=== PATIENT | male | born 1965 | race Caucasian/White ===

== ENCOUNTER 2017-03-20 11:01 | Inpatient (IN) | payer OTHER, MEDICARE ==
[~2017-03-20] VITALS: Ht 172.7 cm; Wt 54.4 kg
--- NOTE | 2017-03-20 11:13 | NUR ---
TRIAGE; PT TO ED C/O SOB X A FEW WEEKS. C/O HEAD AND CHEST CONGESTION. DENIES ANY CP.
--- NOTE | 2017-03-20 11:30 | ED INFLUENZA/URI COMPLAINT ---
History of Present Illness General Chief Complaint: Upper Respiratory Sx/Fever Stated Complaint: SOB, CHEST CONGESTION,SINUS CONGESTION, FEVER Source: patient, old records Exam Limitations: no limitations Vital Signs & Intake/Output Vital Signs & Intake/Output Vital Signs Date Time Temp Pulse Resp B/P B/P Pulse O2 O2 Flow FiO2 Mean Ox Delivery Rate 03/21 1659 98.0 92 16 90/56 92 03/21 0945 90/54 03/21 0830 97.4 90 18 /54 93 Room Air 03/21 0820 95 Room Air 03/21 0800 Room Air 03/20 2200 97.8 97 20 90/58 92 Room Air 03/20 2135 97 90/58 03/20 2046 Room Air ED Intake and Output 03/21 0000 03/20 1200 Intake Total 100 Output Total Balance 100 Intake, Oral 100 Patient 120 lb Weight Allergies Coded Allergies: NO KNOWN ALLERGIES (06/06/13) Reconcile Medications Albuterol Sulfate (Proair Hfa) 90 MCG HFA.AER.AD 2 PUF INH Q4-6 PRN PRN SHORTNESS OF BREATH (Reported) Albuterol Sulfate 2.5 MG/3 ML (0.083 %) VIAL.NEB 1 Vial INH/VIOLETTE Q4P PRN SHORTNESS OF BREATH (Reported) Bupropion HCl (Bupropion HCl Sr) 200 MG TABLET.ER 1 TAB PO BID MENTAL HEALTH (Reported) Carvedilol 6.25 MG TABLET 1 TAB PO BID HEART (Reported) Fluticasone/Salmeterol (Advair 500-50 Diskus) 500 MCG-50 MCG/DOSE BLST.W.DEV 1 PUF INH BID BREATHING PROBLEMS (Reported) Sacubitril/Valsartan (Entresto 97 MG-103 MG Tablet) 97 MG-103 MG TABLET 1 TAB PO BID HEART (Reported) Sertraline HCl 50 MG TABLET 1 TAB PO DAILY MENTAL HEALTH (Reported) Triage Note: TRIAGE; PT TO ED C/O SOB X A FEW WEEKS. C/O HEAD AND CHEST CONGESTION. DENIES ANY CP. Triage Nurses Notes Reviewed? yes Onset: Gradual Duration: week(s): (4), constant Timing: recent history Severity: moderate Severity Numbers: 8 Prior Episodes/Possible Cause: occassional episodes Modifying Factors: Worsens With: movement. Associated Symptoms: wheezing HPI: 51-year-old male with history of cardiomyopathy hypertension chronic bronchitis presents to the ER for evaluation complaining of progressively worsening shortness of breath for the past few weeks has been worse now with rest. He is been using his nebulizer treatments without improvement. He is a 1-2 cigarette smoker day down from 2 packs. He denies chest pain back pain fever chills cough. Patient states that he had routine blood work performed about a month ago prior to the symptoms beginning and was told his white blood cell count was elevated however he did not seek care for those values. The patient denies recent weight loss black or bloody stools nausea or vomiting. On arrival he is noted to be hypotensive however the patient states his normal blood pressure per the patient systolically is in the 80s to 90s. (KIMBERLY EATON) Past History Travel History Traveled to [place] past 21 day No Medical History Any Pertinent Medical History? see below for history Cardiovascular: cardiomyopathy, CHF, defibrillator Respiratory: bronchitis, COPD Surgical History Surgical History: non-contributory Psychosocial History What is your primary language Chinese Tobacco Use: Current Daily Use Daily Tobacco Use Amount/Type: => 5 Cigarettes daily Family History Hx Contributory? No (KIMBERLY EATON) Review of Systems Review of Systems Constitutional: Reports: see HPI. All Other Systems: Reviewed and Negative Comments Review of systems: See HPI, All other systems negative. Constitutional, no chills no fever, no malaise HEENT: no sore throat no congestion Cardiovascular: No chest pain , no palpitation Skin: no rashes, no change in skin Respiratory:dyspnea no cough no sputum GI: No nausea no vomiting, no diarrhea, : No dysuria Muscle skeletal: No joint pain, no joint swelling, no back pain, no neck pain, Neurologic: No numbness no confusion, no headache Psych: No stress Heme/endocrine: No bruising Immunology: No lymphadenopathy (KIMBERLY EATON) Physical Exam Physical Exam General Appearance: well developed/nourished, no apparent distress, alert Ears, Nose, Throat: normal ENT inspection Respiratory: wheezing Comments: Well-developed well-nourished person in no acute distress HEENT: Normal EENT exam; PERRL, EOMI, HEAD is atraumatic. moist mucous membranes. Neck: Supple, no lymphadenopathy, normal range of motion Back: Nontender, no CVA tenderness. Full range of motion Cardiovascular: Regular rate and rhythms no murmurs rubs or gallops, normal JVP Respiratory: Chest nontender.There were no bony deformities, no asymmetry. No respiratory distress. Patient speaking in 3/sentences wheezing bilaterally no rhonchi no rales Abdomen: Soft, nontender nondistended, no appreciable organomegaly. Normal bowel sounds. No rebound/guarding, No appreciable enlargement of the abdominal aorta, No ascites. Extremity: No edema, full range of motion of extremities, normal and equal pulses bilaterally, 5 out of 5 strength noted to bilateral upper and lower extremities Neuro: Alert oriented x3, motor sensory normal, There were no obvious focal neurologic abnormalities. Skin: No appreciable rash on exposed skin, skin is warm and dry. Psych: Mood and affect is normal, memory and judgment is normal. Core Measures Severe Sepsis Present: No Septic Shock Present: No (KIMBERLY EATON) Progress Differential Diagnosis: copd EXACERBATION AND BRONCHITIS PNEUMONIA chfMALIGNANCY Plan of Care: Orders Procedure Date/time Status Nothing by Mouth 03/22 B Active CULTURE,BODY FLUID 03/22 06 Active PROTHROMBIN TIME 03/22 06 Active HIGH SENSITIVITY CRP 03/22 0600 Active WESTERGREN SED RATE 03/22 0600 Active CYTOLOGY SPECIMEN 03/22 0600 Active CBC WITHOUT DIFFERENTIAL 03/22 0600 Active BASIC ELECTROLYTES PLUS BUN&CR 03/[address] LUNG BIOPSY 03/[address] ABD & PELVIS W/O IV CONTRAS 03/22 0600 Active Lab Add-on Test 03/22 UNK Active CYTOLOGY SPECIMEN 03/21 1238 Active SPUTUM INDUCTION (GEN) 03/21 UNK Active Lab Add-on Test 03/21 UNK Active RT: Evaluation 03/20 2043 Active STREP PNEUMO URINARY ANTIGEN 03/20 1617 Complete LEGIONELLA URINARY ANTIGEN 03/20 1617 Complete INCENTIVE SPIROMETRY TRX CHG 03/20 UNK Complete AEROSOL CHG 03/20 UNK Complete THERAPIST ORDERS 03/20 UNK Complete Lab Add-on Test 03/20 UNK Active Current Medications Sig/Yuli Start time Last Medication Dose Stop Time Status Admin Guaifenesin 600 MG Q12 03/21 1520 AC 03/21 (Mucinex) 1714 Albuterol Sulfate 3 ML TID 03/20 2200 AC 03/21 (Proventil) 1910 Budesonide/ 2 PUF BID 03/20 220 AC 03/21 Formoterol Fumarate 0945 (Symbicort) Bupropion HCl 200 MG BID 03/20 2200 AC 03/21 (Wellbutrin) 0945 Carvedilol 6.25 MG BID 03/20 2200 AC 03/21 (Coreg) 0945 Ipratropium Goodell 2.5 ML TID 03/20 2200 AC 03/21 (Atrovent) 1910 Azithromycin 500 MG 18303/20 1830 AC 03/21 (Zithromax) 1714 Sodium Chloride 250 ML (Normal Saline 0.9%) Ceftriaxone Sodium 2,000 MG 1800 03/20 1800 AC 03/21 (Rocephin) 1714 Sertraline HCl 50 MG DAILY 03/20 1459 AC 03/21 (Zoloft) 0945 Heparin Sodium 5,000 UNIT Q8 03/20 1456 AC 03/21 (Porcine) 03/22 0000 1356 Laboratory Tests 03/21/17 0819: Urinalysis MOD H, Urine Color YEL, Urine Clarity CLEAR, Urine pH 6.0, Ur Specific Beryl 1.025, Urine Protein TRACE H, Urine Ketones NEG, Urine Nitrite NEG, Urine Bilirubin NEG, Urine Urobilinogen 0.2, Ur Leukocyte Esterase NEG, Ur Microscopic SEDIMENT EXAMINED, Urine RBC 15-25 H, Urine WBC 1-3 H, Ur Epithelial Cells FEW, Urine Bacteria FEW H, Hyaline Casts RARE H, Granular Casts RARE H, Urine Mucus MOD H, Micro UA Comment MORE INFO: H, Urine Hemoglobin MOD H, Urine Glucose NEG 03/21/17 0610: Anion Gap 17 H, Estimated GFR > 60, BUN/Creatinine Ratio 40.0 H, CBC w Diff MAN DIFF ORDERED, RBC 3.57 L, MCV 89.2, MCH 29.9, RDW 15.0 H, MPV 9.3, Gran % 95.9 H, Lymphocytes % 2.0 L, Monocytes % 2.1, Eosinophils % 0, Basophils % 0 L, Absolute Granulocytes 149.3 H, Segmented Neutrophils 82 H, Band Neutrophils 17 H, Absolute Lymphocytes 3.1, Lymphocytes 1 L, Absolute Monocytes 3.3 H, Absolute Eosinophils 0, Absolute Basophils 0, Platelet Estimate ADEQUATE, Normocytic RBCs VERIFIED, Normochromic RBCs VERIFIED, PUBS MCHC 33.5 Microbiology 03/21 819 URINE ROUT: Legionella Antigen - COMP 03/21 819 URINE ROUT: Streptococcus pneumoniae Antigen (M - COMP 04/27 0819 URINE ROUT: Urine Culture - RECD Labs ordered DuoNeb ordered patient making and Solu-Medrol IV Case discussed with Case discussed with Dr. Nieves after speaking with the pathologist Dr. Khan there is no predominance of blast seen on the peripheral smear patient will be admitted here to telemetry, CAT scan ordered per hospitalist I had a long discussion with the patient regarding all his findings today I attempted to answer all his questions as best I could presently he is in agreement with plan he reports to feeling improved with DuoNeb (MARCO FLANAGAN,KIMBERLY) Diagnostic Imaging: Viewed by Me: Radiology Read. Discussed w/RAD: Radiology Read. Radiology Impression: PATIENT: LAURI JOHNSON PRESENT AGE: 51 PATIENT ACCOUNT NO: [id number] : 63 LOCATION: [facility] ORDERING PHYSICIAN: KIMBERLY FLANAGAN SERVICE DATE: 03/20/17-8658 EXAM TYPE: RAD - XRY-PORTABLE CHEST XRAY EXAMINATION: XR PORTABLE CHEST CLINICAL INFORMATION: Dyspnea. Presumptive diagnosis: Pneumonia, CHF. COMPARISON: Chest x -ray 12/27/2016. CT of the chest 03/08/2016. TECHNIQUE: Portable frontal view of the chest was obtained. FINDINGS: A single lead ICD device is unchanged in position. The heart is normal in size. There is no vascular congestion. There is a new right apical lung mass measuring approximate 7 cm in maximum dimension. IMPRESSION: New right apical lung mass. Recommend CT for further evaluation. DICTATED BY: MARIBEL MCCAULEY MD DATE/TIME DICTATED:03/20/171233 CLASSIFIED AD TAKER:VAL DATE/TIME TRANSCRIBED:03/20/171233 CONFIDENTIAL, DO NOT COPY WITHOUT APPROPRIATE AUTHORIZATION. <Electronically signed in Other Vendor System> SIGNED BY: MARIBEL MCCAULEY MD 03/20/17 1243, PATIENT: LAURI JOHNSON PRESENT AGE: 51 PATIENT ACCOUNT NO: [id number] : 63 LOCATION: [facility] ORDERING PHYSICIAN: KIMBERLY FLANAGAN SERVICE DATE: 03/20/17-1302 EXAM TYPE: CAT - CT CHEST W IV CONTRAST EXAMINATION: CT CHEST WITH CONTRAST CLINICAL INFORMATION: Dyspnea. Leukocytosis. Lung mass. COMPARISON: Radiographs dated 03/20/2017 and 12/27/[address] from 2015 TECHNIQUE: Multidetector volumetric CT imaging of the chest was obtained after the administration of 67 mL of Optiray 320 intravenous contrast without immediate adverse reactions. Axial MIP volume rendering provided. Sagittal and coronal reformatted images were obtained. DLP: 181.7 mGy-cm FINDINGS: TELEPHONE OPERATOR RECEPTIONIST: Again seen is the right apical mass. Single lead subcutaneous defibrillator is present, terminating over the sternum. LUNGS: At the medial aspect of the right lung apex, there is a new 6.5 x 5.4 x 6.1 cm intermediate density (29 Hounsfield units) masslike opacity, occupying a bulla seen on the prior study. This is a large area of pleural attachment along the right aspect of the superior mediastinum and anterior chest wall at the right lung apex. No appreciable extension through the adjacent chest wall. There is severe bullous emphysema in both lungs. There is a new 0.5 x 0.4 cm spiculated nodule at the medial aspect of the left upper lobe on image 85/592 of series 5. A subtle linear 6 cm focus of scarring in the lateral aspect of the left upper lobe on image 20/74 of series 2 is unchanged. Central airways are clear. MEDIASTINUM: Calcific atherosclerosis is present in the thoracic aorta and coronary arteries. Heart is normal in size. Trace pericardial effusion. No adenopathy. PLEURA: As above, the right apical mass has a large area of pleural attachment. No pleural effusion. No pleural nodularity. AXILLA: No lymphadenopathy. UPPER ABDOMEN: Unremarkable. OSSEOUS STRUCTURES: Minimal multilevel degenerative disc disease is present in the thoracic spine . More moderate to severe focal degenerative disc disease is present at L2-L3. IMPRESSION: 1. A 6.5 intermediate density mass at the right lung apex. This is concerning for a primary bronchogenic carcinoma, though the absence of correlating findings on the prior comparisons indicates that this abnormality is relatively new. Loculated infection within a bulla is possible, though not favored. Recommend further evaluation with biopsy unless infection is strongly favored clinically in which case short interval imaging follow-up would be necessary. 2. Severe bullous emphysema. 3. New 0.5 cm spiculated nodule at the left lung apex. 4. No adenopathy. This critical result was discussed by telephone with PANCHITO Kwan at 1:53 PM on 03/20/2017 . DICTATED BY: SERGE FITZGERALD MD DATE/TIME DICTATED:03/20/171331 CLASSIFIED AD TAKER:VAL DATE/TIME TRANSCRIBED:03/20/171331 CONFIDENTIAL, DO NOT COPY WITHOUT APPROPRIATE AUTHORIZATION. <Electronically signed in Other Vendor System> SIGNED BY: SERGE FITZGERALD MD 03/20/17 1358 Initial ED EKG: NORMAL SINUS AT 90, NO ACUTE st SEGMENT CHANGES NORMAL AXIS (KIMBERLY EATON) Departure Departure Time of Disposition: 1313 Disposition: STILL A PATIENT Condition: Stable Clinical Impression Primary Impression: Lung mass Secondary Impressions: Leukocytosis Referrals: GONZALEZ GARCIA (PCP/Family) Departure Forms: Customer Survey General Discharge Information Admission Note Spoke With: BLANCO KULKARNI MD Documentation of Exam: Documentation of any treatments & extenuating circumstances including Concerns Regarding Discharge (functional status, medication knowledge or non-compliance, living conditions, etc.) that warrant an admission rather than observation: Oncology consult trend labs CAT scan premature discharge would BE medically harmful given leukocytosis new lung mass seen on x-ray today (KIMBERLY EATON) PA/TYPE PROOF REPRODUCER Co-Sign Statement Statement: ED Attending supervision documentation- X I saw and evaluated the patient. I have also reviewed all the pertinent lab results and diagnostic results. I agree with the findings and the plan of care as documented in the PA's/TYPE PROOF REPRODUCER's documentation. [] I have reviewed the ED Record and agree with the PA's/TYPE PROOF REPRODUCER's documentation. [] Additions or exceptions (if any) to the PAs/TYPE PROOF REPRODUCER's note and plan are summarized below: [] (MIKEY HERMAN,ELIDA)
--- NOTE | 2017-03-20 11:34 | NUR ---
PANCHITO LARA IN ROOM FOR EVAL AND RT INFORMED OF PLAN FOR RESP TX
--- NOTE | 2017-03-20 12:01 | NUR ---
LABS DRAWN AND SENT (BLUE, SST X2, LAV, OLMSTEAD, PINK) AND PT MEDICATED WITH SOLUMEDROL PER eMAR. RT AT BEDSIDE FOR TX. PT REPORTS HX CHF, CARDIOMYOPATHY WITH LOW EF (25-30%). REPORTS RECENT LETHARGY AND SOB WITH EXERTION
[2017-03-20 12:03] LABS: ABSOLUTE BASOPHIL COUNT 0 /CUMM (0.0-0.2); ABSOLUTE EOSINOPHIL COUNT 0.2 /CUMM (0.0-0.7); ABSOLUTE GRANULOCYTE CT 102.4 /CUMM (1.4-6.5); ABSOLUTE LYMPH COUNT 2.1 /CUMM (1.2-3.4); ABSOLUTE MONOCYTE COUNT 0.2 /CUMM (0.10-0.60); BASOPHIL % 0 % (0.0-2.0); EOSINOPHIL % 0.1 % (0-5); HEMATOCRIT 30.6 % (42-52); MEAN CORPUSCULAR HGB 29.3 PG (27.0-31.0); MEAN CORPUSCULAR HGB CONC 33.7 G/DL (33.0-37.0); MEAN CORPUSCULAR VOLUME 87.1 FL (80.0-94.0); MEAN PLATELET VOLUME 8.6 FL (7.4-10.4); PLATELET COUNT 430 /CUMM (130-400); RBC DISTRIBUTION WIDTH 15.4 % (11.5-14.5); RED BLOOD CELL CT 3.51 /CUMM (4.70-6.10)
[2017-03-20 12:07] LABS: GRANULOCYTE % 97.7 % (42.2-75.2)
[2017-03-20 12:20] LABS: WHITE BLOOD CELL COUNT 104.8 /CUMM (4.8-10.8)
[2017-03-20] MEDS ORDERED: ADVAIR 500-501 EACH INH (12:26)
[2017-03-20] MEDS ORDERED: ENTRESTO 97 MG1 EACH PO (12:27)
[2017-03-20] MEDS ORDERED: CARVEDILOL6.25 M1 PO (12:27)
[2017-03-20] MEDS ORDERED: PROAIR HFA8.5 GM INH (12:27)
[2017-03-20] MEDS ORDERED: BUPROPION HCL200 M2 PO (12:28)
[2017-03-20] MEDS ORDERED: SERTRALINE HCL50 MG PO (12:28)
[2017-03-20] MEDS ORDERED: ALBUTEROL2.5 MG/3 M INH/SOL (12:28)
--- NOTE | 2017-03-20 12:43 | RADIOLOGY REPORT ---
EXAMINATION: XR PORTABLE CHEST CLINICAL INFORMATION: Dyspnea. Presumptive diagnosis: Pneumonia, CHF. COMPARISON: Chest x-ray 12/27/2016. CT of the chest 03/08/2016. TECHNIQUE: Portable frontal view of the chest was obtained. FINDINGS: A single lead ICD device is unchanged in position. The heart is normal in size. There is no vascular congestion. There is a new right apical lung mass measuring approximate 7 cm in maximum dimension. IMPRESSION: New right apical lung mass. Recommend CT for further evaluation.
--- NOTE | 2017-03-20 13:17 | NUR ---
PT TO AND FROM CT VIA STRETCHER. CONTINUES TO COUGH WITH NO PRODUCTION OF SPUTUM
--- NOTE | 2017-03-20 13:41 | NUR ---
PT ADMITTED TO ROOM 172
--- NOTE | 2017-03-20 13:58 | CT SCAN REPORT ---
EXAMINATION: CT CHEST WITH CONTRAST CLINICAL INFORMATION: Dyspnea. Leukocytosis. Lung mass. COMPARISON: Radiographs dated 03/20/2017 and 12/27/[address] from 02/27/2016 TECHNIQUE: Multidetector volumetric CT imaging of the chest was obtained after the administration of 67 mL of Optiray 320 intravenous contrast without immediate adverse reactions. Axial MIP volume rendering provided. Sagittal and coronal reformatted images were obtained. DLP: 181.7 mGy-cm FINDINGS: BIOLOGY INTERNSHIP: Again seen is the right apical mass. Single lead subcutaneous defibrillator is present, terminating over the sternum. LUNGS: At the medial aspect of the right lung apex, there is a new 6.5 x 5.4 x 6.1 cm intermediate density (29 Hounsfield units) masslike opacity, occupying a bulla seen on the prior study. This is a large area of pleural attachment along the right aspect of the superior mediastinum and anterior chest wall at the right lung apex. No appreciable extension through the adjacent chest wall. There is severe bullous emphysema in both lungs. There is a new 0.5 x 0.4 cm spiculated nodule at the medial aspect of the left upper lobe on image 85/592 of series 5. A subtle linear 6 cm focus of scarring in the lateral aspect of the left upper lobe on image 20/74 of series 2 is unchanged. Central airways are clear. MEDIASTINUM: Calcific atherosclerosis is present in the thoracic aorta and coronary arteries. Heart is normal in size. Trace pericardial effusion. No adenopathy. PLEURA: As above, the right apical mass has a large area of pleural attachment. No pleural effusion. No pleural nodularity. AXILLA: No lymphadenopathy. UPPER ABDOMEN: Unremarkable. OSSEOUS STRUCTURES: Minimal multilevel degenerative disc disease is present in the thoracic spine . More moderate to severe focal degenerative disc disease is present at L2-L3. IMPRESSION: 1. A 6.5 intermediate density mass at the right lung apex. This is concerning for a primary bronchogenic carcinoma, though the absence of correlating findings on the prior comparisons indicates that this abnormality is relatively new. Loculated infection within a bulla is possible, though not favored. Recommend further evaluation with biopsy unless infection is strongly favored clinically in which case short interval imaging follow-up would be necessary. 2. Severe bullous emphysema. 3. New 0.5 cm spiculated nodule at the left lung apex. 4. No adenopathy. This critical result was discussed by telephone with PANCHITO Kwan at 1:53 PM on 03/20/2017 .
--- NOTE | 2017-03-20 14:24 | History & Physical ---
ANDRE WOODWARD 03/20/17 1423: General Information and HPI MD Statement: I have seen and personally examined LAURI JOHNSON and documented this H&P. The patient is a 51 year old M who presented with a patient stated chief complaint of shortness of breath, cough, change in voice. Source of Information: patient Exam Limitations: no limitations History of Present Illness: Mr Johnson is a 51-year-old man who is known to be in his usual state of health until 1 month ago. He has a [id number] smoking history, cardiomyopathy ( dx' ed 2016, s/p AICD), hypertension, chronic bronchitis/emphysema(not on home oxygen). He was brought to [place] [facility] with a chief concern of fatigue x 1 month , shortness of breath, fever, cough, voice change x 2 wks. As per the pt, he developed fatigue in the last 1 month, with increased sleepiness; shortness of breath that started 2 weeks ago, progressed from being short of breath doing daily chores to being short of breath after walking a few steps. No orthopnea or paroxysmal nocturnal dyspnea. He reported cough, worsened in the last 1 week, productive clear to yellow sputum, reports volume upto 2 cups a day. Reported change in voice in the last 1 week, no weaknes in hand muscles, or eye lid droop. Reported fever, with a recorded temperature of 100F x once 1wk ago. Also reported occasional chest tightness from persistent coughing. No palpitations, pedal edema, lightheadedness/dizziness, changes in bladder or bowel function. Reported approximately 20 pound weight loss in the last 1 year with no changes in appetite. No Sick contacts, foreign travel, or exposure to endemic areas of tuberculosis. Occasional alcohol use. 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 Smoked for the last 38 years, and has been trying to quit. No family history of any cancers. Allergies/Medications Allergies: Coded Allergies: NO KNOWN ALLERGIES (06/06/13) Home Med list Albuterol Sulfate (Proair Hfa) 90 MCG HFA.AER.AD 2 PUF INH Q4-6 PRN PRN SHORTNESS OF BREATH (Reported) Albuterol Sulfate 2.5 MG/3 ML (0.083 %) VIAL.NEB 1 Vial INH/VIOLETTE Q4P PRN SHORTNESS OF BREATH (Reported) Bupropion HCl (Bupropion HCl Sr) 200 MG TABLET.ER 1 TAB PO BID MENTAL HEALTH (Reported) Carvedilol 6.25 MG TABLET 1 TAB PO BID HEART (Reported) Fluticasone/Salmeterol (Advair 500-50 Diskus) 500 MCG-50 MCG/DOSE BLST.W.DEV 1 PUF INH BID BREATHING PROBLEMS (Reported) Sacubitril/Valsartan (Entresto 97 MG-103 MG Tablet) 97 MG-103 MG TABLET 1 TAB PO BID HEART (Reported) Sertraline HCl 50 MG TABLET 1 TAB PO DAILY MENTAL HEALTH (Reported) Past History Travel History Traveled to [place] past 21 day No Medical History Neurological: NONE EENT: NONE Cardiovascular: cardiomyopathy, CHF, defibrillator Respiratory: bronchitis, COPD Gastrointestinal: NONE Hepatic: NONE Renal: NONE Musculoskeletal: NONE Psychiatric: NONE Endocrine: NONE Surgical History Surgical History: non-contributory Past Family/Social History Family History Relations & Conditions if any MOTHER (COPD). Psychosocial History Smoking Status: Former Smoker ETOH Use: occasional use Illicit Drug Use: denies illicit drug use Living Will? no Functional Ability ADLs Independent: dressing, eating, toileting, bathing. Ambulation: independent IADLs Independent: shopping, housework, finances, food prep, telephone, transportation , medication admin. Review of Systems Review of Systems Constitutional: Reports: see HPI. EENTM: Denies: icterus. Cardiovascular: Denies: chest pain. Respiratory: Reports: cough, short of breath, sputum production, wheezing. Denies: stridor. GI: Denies: abdominal pain, diarrhea, nausea, bloody stool, vomiting. Musculoskeletal: Denies: back pain. Skin: Denies: change in skin color. Neurological/Psychological: Denies: ataxia, headache, paresthesia. Exam & Diagnostic Data Last 24 Hrs of Vital Signs/I&O Vital Signs Date Time Temp Pulse Resp B/P B/P Pulse O2 O2 Flow FiO2 Mean Ox Delivery Rate 03/20 1507 72 16 96/60 97 Room Air 03/20 1422 97.2 93 16 96/59 97 Room Air 03/20 1205 95 Room Air 03/20 1158 98 03/20 1112 97.5 93 16 96/64 95 Room Air Physical Exam General Appearance No Acute Distress Skin No Rashes, No Breakdown Skin Temp/Moisture Exam: Warm/Dry Sepsis Skin Exam (color): Normal for Ethnicity HEENT Atraumatic, PERRLA, EOMI Neck No JVD, No thryomegaly Lymphatic Cervical nl Cardiovascular Normal S1, Normal S2 Lungs Clear to Auscultation, decreased air entry neelima, expiratory wheezes b/l Abdomen Normal Bowel Sounds, Soft, No Tenderness, No Hepatospenomegaly Neurological Normal Gait, Normal Speech, Strength at 5/5 X4 Ext, Normal Tone, Sensation Intact, Cranial Nerves 3-12 NL, Reflexes 2+ Extremities No Clubbing, No Cyanosis, No Edema, Normal Pulses, No Tenderness/ Swelling Vascular Normal Pulses, Pulses Symmetrical Sepsis Peripheral Pulse Location: Radial Sepsis Peripheral Pulse Exam: Normal Sepsis Cap Refill Exam: >2 sec Body Front and Back (Adult) 1) defibrillator in place Diagnostic Data EKG Results Normal sinus rhythm right axis deviation( + 100 to 120 deg ) Q waves V1, V2 CXR Results A single lead ICD device is unchanged in position. The heart is normal in size. There is no vascular congestion. There is a new right apical lung mass measuring approximate 7 cm in maximum dimension. IMPRESSION: New right apical lung mass. Other Results CT CHEST WITH CONTRAST 1. A 6.5 intermediate density mass at the right lung apex. This is concerning for a primary bronchogenic carcinoma, though the absence of correlating findings on the prior comparisons indicates that this abnormality is relatively new. Loculated infection within a bulla is possible, though not favored. Recommend further evaluation with biopsy unless infection is strongly favored clinically in which case short interval imaging follow-up would be necessary. 2. Severe bullous emphysema. 3. New 0.5 cm spiculated nodule at the left lung apex. 4. No adenopathy. Assessment/Plan Assessment: He is a middle aged man w/ a PMH of cardiomyopathy, chronic bronchitis and is being evaluated for progressive worsening shortness of breath, fatigue, and weight loss x 1 wk. At the time of admission, vitals revealed temperature 97.5, pulse rate 93, respirations 16, pulse ox 95% on room air. Lab findings indicated WBC leukocytosis (104.8K) with predominant neutrophils (10% bands), minimal lymphocytes w/ no blasts(as confirmed by pathologist), hemoglobin 10.3 (baseline 13.8 one year ago), platelets 430. Electrolytes-sodium 139, potassium 4.7, chloride 98, bicarbonate 25, BUN 29, serum creatinine 0.8 (normal renal function ), normal AST and ALT 11, 19; alkaline phosphatase 218 (no history of alcohol use or liver dysfunction). EKG findings revealed normal sinus rhythm, with a right axis deviation (axis-in between +90-+120), Q waves in V1-V2, with no ST-T wave changes. Chest x-ray revealed apical lung mass on the right side. CT scan confirmed the findings- 6.5 intermediate density mass at right lung apex. Also was found in this matter changes and 0.5 cm spiculated nodule at left lung apex seen. No lymphadenopathy was noted. Echocardiogram has been ordered. Differential diagnoses: #1 lung mass ( ? NSLC vs SLC ) #2 leukocytosis Below is the problem list and plan: #1 shortness of breath: Could be multifactorial. Patient has history of COPD, and any viral illness could have triggered this. Lung mass-possibly small cell lung cancer is high on the differential, which could've led to these findings- weight loss, fatigue, leukocytosis. However, other findings associated such as hypercalcemia, hyponatremia are not seen. Also in the differential, infectious source cosidering the acuity. Last known radiographic findings-chest x-ray was normal a few months ago, making a rapidly growing mass highly likely or infection. Since the patient did not have any blasts seen on peripheral smear, it is safe to say that patient likely does not have any primary hematological malignancy at this time. We'll check LDH, vitamin B12 and iron studies.Found to have elevated alkaline phosphatase, which could just be an incidental finding, but need to rule out any metastases to the liver/bone. May benefit from CAT scan abdomen, head. Continue TRC nebs. Avoid steroids at this time. Repeat echocardiogram. Software Developer Mid Level Dr. Wheatley has been consulted. Service Unit Operator [employer]-Dr. Martell has been consulted for advice. #2 DVT prophylaxis-Lovenox #3 full code. As Ranked By This Provider Problem List: 1. Leukocytosis 2. Lung mass Core Measures/Miscellaneous Acute Coronary Syndrome ACS Diagnosis: No Cerebrovascular Accident CVA/TIA Diagnosis: No Congestive Heart Failure CHF Diagnosis: No MINH/ARB for EF <40%: Yes Venous Thromboembolism VTE Risk Factors: Acute medical illness No [facility] VTE prophylaxis d/t: No contraindications No VTE Pharm Prophylaxis d/t: No contraindications VTE Diagnosis: No VTE Type: NONE VTE Confirmed by (Test): NONE Severe Sepsis Severe Sepsis Present: No Septic Shock Septic Shock Present: No Miscellaneous Documentation Attending Case Discussed With: LUDMILA HERNANDEZ MD Primary Care Physician: GONZALEZ GARCIA Patient sees these Specialists Dr. Schilling, Dr. Gordon, Dr. Dan Level of Patient Care: Telemetry DEVANTE SHEPPARD MD 03/20/17 1614: Resident Review Statement Resident Statement: examined this patient, discussed with r d intern, agreed with r d intern, reviewed EMR data (avail), reviewed images, amended to note Other Findings: This is 51-year-old male with past medical history of idiopathic nonischemic cardiomyopathy diagnosed in 2016 status post AICD, hypertension, COPD/emphysema presented from home with chief complaint of 2-3 weeks history of progressively worsening shortness of breath especially on ambulation associated with productive cough (bring up around 2 cup full, whitish / light yellow phelegm) associated with one-month history of fatigue, one-week history of hoarseness, and 18 pounds weight loss in last one year. As per the patient he has been feeling weak and tired for past 1 year since he was diagnosed with cardiomyopathy. But for past 2-3 weeks he noted significant shortness of breath mostly on ambulation associated with productive cough. He reports history of subjective fever of week prior to admission but denies any recent upper respiratory infection, sick contacts, recent travel, GI symptoms. He presented to ER because of his progressively worsening shortness of breath at the point that even walking to the bathroom made him out of breath. Patient never had colonoscopy in the past, as [id number] smoking history and currently smokes 1- 2 cigarettes per day. 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 On admission his vitals were T 97.5, HR 93, RR 16, BP 96/64, O2 sat 95% on room air. On physical exam patient is alert oriented 3 in no acute distress, HEENT PERRLA EOMI, neck supple without any cervical lymphadenopathy, heart S1-S2 normal without murmur, noted subcutaneous defibrillator placed on left axillary area without surrounding redness and erythema or swelling, lungs clear on auscultation but on deep auscultation noted expiratory rhonchi/wheeze, abdomen soft nontender nondistended with preserved bowel sounds, no focal gross neuro deficit, no peripheral edema. Labs were significant for leukocytosis of 104,800 with granulocytosis with 10% bandemia, H&H 10.3/30.6 (baseline H&H 13.8/40 a year ago), platelet 430, K4.7, BUN 29, creatinine 0.8, AST 11, ALT 19, alkaline phosphatase 218, negative troponin. Chest x-ray revealed new right apical lung mass CT with IV contrast revealed 6.5 cm intermediate density mass at the right lung apex concerning for primary bronchogenic carcinoma and also noted severe bullous emphysematous changes throughout the lung and new 0.5 cm spiculated nodule at the left lung. No adenopathy noted. Assessment and plan: 1. Right apical mass Patient has long-standing history of fatigue associated with 18 pounds weight loss past 1 year, shortness of breath with productive cough on x-ray found to have right of cycle mass which on CT with IV contrast noted about 6.5 cm masslike lesion without any associated adenopathy concerning for primary bronchogenic carcinoma but possibility of infection can't be ruled out. - We will get CT abdomen and pelvis and head for staging - Sputum cytology, culture - ? infection, will start emperic azithro/ceftriaxone for possible PNA - Oncology consult - Pulmonary consult 2. COPD/emphysema - Keep O2 sat> 90% - TRC - Continue Symbicort 3. Idiopathic nonischemic cardiomyopathy status post AICD - Continue home dose Entresto and Coreg - We will get echocardiogram 4. Absolute leukocytosis Patient noted significant increase in leukocyte count without blast with stable other cell count lineage Rule out B12 deficiency Peripheral smear (pathology already reviewed peripheral smear and did not find any blast) ? leukocytosis in setting of solid lung tumor vs. Paraneoplastic vs. leukemoid reaction Hematologic consultation 5. Depression Continue sertraline 6. DVT prophylaxis Subcutaneous heparin 7. Full code LUDMILA HERNANDEZ MD 03/21/17 1047: Attending MD Review Statement Attending Statement Attending MD Statement: examined this patient, discuss w/resident/PA/[employer], agreed w/resident/PA/[employer], reviewed EMR data (avail) Attending Assessment/Plan: 51M PMH smoker, COPD, ischemic cardiomyopathy s/p AICD presenting with 1 month of fatigue, unintentional weight loss, mild fever, with worsening dyspnea and non-productive cough. Patient feels fine otherwise but has been sleeping ~14 hr /day. He feels chest congestion but is unable to bring up sputum, and has episodes of coughing fits where he feels unable to breathe. Currently he is comfortable with no complaints other than fatigue and chest congestion. Vitals normal, exam reveals bilateral rhonchi, appears thin but not cachectic, normal cardiac and abdominal exam. Labs show WBC 108,000, Hgb 10.4, platelets 430. Iron levels low, LDH 1643. Chest CT shows 6.5cm RUL mass and new 0.5cm left spiculated mass. 1. RUL lung mass 2. BLESSING lung mass 3. Leukocytosis with neutrophilia 4. Elevated LDH 5. Fatigue, weight loss 6. Ischemic cardiomyopathy 7. COPD Plan - Admit to telemetry - Pulmonary and oncology consults - Send sputum culture and cytology - Peripheral blood smear, LDH, uric acid - Blood cultures - Continue home medications - DVT PPx
--- NOTE | 2017-03-20 15:23 | PN- Student ---
Subjective Subjective: This 51 year-old male smoker with a PMH of cardiomyopathy (s/p AICD in 2016), HTN, chronic bronchitis, COPD, and emphysema presents to the ED 03/20/17 with a chief complaint of a 2-week history of progressively worsening shortness of breath. Patient notes after walking a few steps has shortness of breath. Has been using nebulizer treatments without improvement. Associated symptoms include fatigue for 2 weeks, patient has been sleeping about 12 hours per day, worsening cough for 2 weeks productive of clear sputum, and a change in his voice becoming more hoarse for the past 1 week. Has had 12 lbs. weight loss over the past 1.5 years despite having a large appetite. Patient saw PCP 1 month ago for routine visit and had blood work done, which showed elevated WBCs. Patient was instructed by PCP over the phone to go to ED, but patient felt well and did not go to ED. ROS: denies chest pain, fever, sick contacts, recent travel, vomiting. Notes chills for 1 night 1 week ago. Surgical history: shoulder surgery (1996), AICD placement (06/2016) Family History: Father: 80 y/o, healthy Mother: at 70 y/o, CAD, COPD, emphysema Brother: healthy Sister: healthy Social History: -Tobacco: smoked 1 ppd for 38 years; 6 months ago transitioned to 1/2 ppd; 2 cigarettes daily for past 1 month. 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 Medications: Carvedilol 6.25mg BID PO Bupropion 200mg BID PO Budesonide/formoterol fumarate 2 puffs BID Albuterol 2 puffs Q4-6HRS PRN Fluticasone/salmeterol 1 puff BID Sacubitril/valsartan 97mg/103mg BID PO Sertraline 50mg QDAY PO Objective Objective: Vital Signs Date Time Temp Pulse Resp B/P B/P Pulse O2 O2 Flow FiO2 Mean Ox Delivery Rate 03/20 1600 97.5 104 20 90/60 95 03/20 1507 72 16 96/60 97 Room Air 03/20 1422 97.2 93 16 96/59 97 Room Air 03/20 1205 95 Room Air 03/20 1158 98 03/20 1112 97.5 93 16 96/64 95 Room Air Intake & Output 03/20 1600 03/20 0800 03/20 0000 Intake Total Output Total Balance Patient 120 lb Weight Physical Exam: General: thin, in no acute distress HEENT: PERRL, EOMI, head atraumatic, moist mucous membranes Neck: no lympadenopathy, normal range of motion Heart: RRR, no murmurs, rubs, or gallops, no JVD present Lung: non-tender, decreased breath sounds in upper right lung, coughing, Abdomen: soft, non-tender, non-distended, no masses, bowel sounds present Extremities: no clubbing, cyanosis, edema Skin: no rashes on exposed skin Psych: alert and oriented, normal mood and affect Results Results: Labs: WBCs 104.8 RBCs 3.51 Hgb 10.3 g/dL Hct 30.6% Granulocytes 97.7% Lymphocytes 2.0% Monocytes 0.2% Band neutrophils 10% Lactate dehydrogenase 1643 U/L BNP 643 pg/mL EKG: Normal sinus rhythm Right axis deviation (+100-120 degrees) Q waves in V1-V2, no ST-T wave changes Imaging: Chest x-ray: -New right lung apical mass measuring 7cm at maximum dimension CT scan chest with IV contrast: -6.5cm mass at right lung apex -Severe bullous emphysema -New 0.5cm spiculated nodule at left lung apex -No adenopathy CT scan 1 year ago: -Shows no mass Chest x-ray 2 months ago: -Shows no mass Assessment/Plan Assessment: This 51 y/o male smoker with PMH significant for cardiomyopathy (s/p AICD in 2016), HTN, chronic bronchitis, COPD, and emphysema presents to ED with worsening shortness of breath and cough and fatigue x2 weeks, with voice changes x1 week, and 12 lbs. weight loss over 1.5 years. Imaging in the ED showed mass at right lung apex and severe bullous emphysema. Labs demonstrate elevated WBC count. Patient's vital signs are currently stable and is in no acute distress. Differential Dx: -Infectious etiology: elevated WBC count and relatively new growth of lung mass make a lung abscess possible. Most abscesses are associated with fever, and patient has not had history of fever. Additionally, a COPD exacerbation due to a respiratory infection is possible. Patient's cough increased in severity and frequency, and has shortness of breath and increased sputum production. However, patient has not been responding to nebulizer treatments. -Malignancy: mass in right lung is concerning for malignancy. Patient also has fatigue, weight loss, and smoking history. The absence of the mass in CT scan 1 year ago means that the mass is relatively new. Some lung cancers can be fast- growing (small cell lung cancer). -Cardiac etiology: patient has shortness of breath, cough, fatigue, which are symptoms in CHF. BNP is also elevated. Patient has no edema, no JVD. EKG shows no ST-T wave changes and troponin I is less than 0.01, making a cardiac ischemic event less likely. Plan: 1. For shortness of breath, fatigue: -Sputum gram stain and culture, blood culture, fungal culture to determine possible infectious etiology -Sputum cytology to look for abnormal cells to determine possible malignancy -Recommend to give empiric antibiotics for possible lung abscess- ampicillin/ sulbactam 3g IV q6hrs -Follow pulmonology recommendations -CBC, BMP for tomorrow morning -Echocardiogram ordered for tomorrow to evaluate for CHF, changes since last echocardiogram 2. For voice change: -Could be result of injury to recurrent laryngeal nerve -Will get ENT consult 3. DVT prophylaxis: Heparin 5,000 units Q8HRS SC 4. Begin home medications: Carvedilol 6.25mg BID PO Bupropion 200mg BID PO Budesonide/formoterol fumarate 2 puffs BID Albuterol 2 puffs Q4-6HRS PRN Fluticasone/salmeterol 1 puff BID Sacubitril/valsartan 97mg/103mg BID PO Sertraline 50mg QDAY PO Chacorta Bledsoe, MS3
--- NOTE | 2017-03-20 15:26 | NUR ---
DR LAGUERRE AT BEDSIDE FOR EVAL
--- NOTE | 2017-03-20 15:41 | Cons- Pulmonary ---
General Information and HPI Consulting Request Date of Consult: 03/20/17 Requested By: joceline Reason for Consult: Cough shortness breath and abnormal chest x-ray History of Present Illness: Patient is 51-year-old with advanced bullous emphysema actively smoking admitted with increasing shortness of breath over the past several weeks cough and hoarseness. Patient has significant bullous emphysema lung cancer screening CT scan done in 2015 showed no areas of concern for malignancy a chest x-ray in December 2016 showed no acute findings.. In the emergency room chest x-ray now shows a right upper lobe mass confirmed by CT scan. His white count was 100,000 with left shift had no hemoptysis. He denies alcohol use or loss of consciousness Allergies/Medications Allergies: Coded Allergies: NO KNOWN ALLERGIES (06/06/13) Home Med List: Albuterol Sulfate (Proair Hfa) 90 MCG HFA.AER.AD 2 PUF INH Q4-6 PRN PRN SHORTNESS OF BREATH (Reported) Albuterol Sulfate 2.5 MG/3 ML (0.083 %) VIAL.NEB 1 Vial INH/VIOLETTE Q4P PRN SHORTNESS OF BREATH (Reported) Bupropion HCl (Bupropion HCl Sr) 200 MG TABLET.ER 1 TAB PO BID MENTAL HEALTH (Reported) Carvedilol 6.25 MG TABLET 1 TAB PO BID HEART (Reported) Fluticasone/Salmeterol (Advair 500-50 Diskus) 500 MCG-50 MCG/DOSE BLST.W.DEV 1 PUF INH BID BREATHING PROBLEMS (Reported) Sacubitril/Valsartan (Entresto 97 MG-103 MG Tablet) 97 MG-103 MG TABLET 1 TAB PO BID HEART (Reported) Sertraline HCl 50 MG TABLET 1 TAB PO DAILY MENTAL HEALTH (Reported) Review of Systems Review of Systems Constitutional: Reports: fever. Denies: chills, weakness. Cardiovascular: Denies: chest pain. Respiratory: Reports: cough, short of breath, sputum production. Denies: hemoptysis. GI: Denies: abdominal pain, diarrhea, melena. Past History Travel History Traveled to [place] past 21 day No Medical History Neurological: NONE EENT: NONE Cardiovascular: cardiomyopathy, CHF, defibrillator Respiratory: bronchitis, COPD Gastrointestinal: NONE Hepatic: NONE Renal: NONE Musculoskeletal: NONE Psychiatric: NONE Endocrine: NONE Surgical History Surgical History: non-contributory Family History Relations & Conditions If Any: MOTHER (COPD). Psychosocial History Smoking Status: Former Smoker ETOH Use: occasional use Illicit Drug Use: denies illicit drug use Living Will? no Functional Ability ADLs Independent: dressing, eating, toileting, bathing. Ambulation: independent IADLs Independent: shopping, housework, finances, food prep, telephone, transportation , medication admin. Exam & Diagnostic Data Last 24 Hrs of Vital Signs/I&O Vital Signs Date Time Temp Pulse Resp B/P B/P Pulse O2 O2 Flow FiO2 Mean Ox Delivery Rate 03/20 1507 72 16 96/60 97 Room Air 03/20 1422 97.2 93 16 96/59 97 Room Air 03/20 1205 95 Room Air 03/20 1158 98 03/20 1112 97.5 93 16 96/64 95 Room Air Room air oxygen saturation 97% HNT exam shows no adenopathy there is prominent venous pattern over the right upper chest exam of his chest shows diminished breath sounds are no focal wheezes cardiac exam shows regular S1 and S2 without murmurs abdomen is soft nontender no edema or clubbing Last 48 Hrs of Labs/Nikolai: Laboratory Tests 03/20/17 1438: Lactic Acid Cancelled 03/20/17 1150: Anion Gap 15, Estimated GFR > 60, BUN/Creatinine Ratio 36.3 H, Glucose 96, Lactic Acid 1.6, Calcium 8.7, Iron Pending, TIBC Pending, Ferritin Pending, Total Bilirubin 0.6, GGT Pending, AST 11 L, ALT 19 L, Alkaline Phosphatase 218 H, Lactate Dehydrogenase Pending, Troponin I < 0.01, Rnn-N-Nqtrlpzvmvz Pept 643 H, Total Protein 6.6, Albumin 3.4 L, Globulin 3.2, Albumin/Globulin Ratio 1.1, Amylase 38, Lipase 16 L, Vitamin B12 Pending, CBC w Diff MAN DIFF ORDERED, RBC 3.51 L, MCV 87.1, MCH 29.3, RDW 15.4 H, MPV 8.6, Gran % 97.7 H, Lymphocytes % 2.0 L, Monocytes % 0.2 L, Eosinophils % 0.1, Basophils % 0 L, Absolute Granulocytes 102.4 H, Segmented Neutrophils 88 H, Band Neutrophils 10 H, Absolute Lymphocytes 2.1, Monocytes 1 L, Absolute Monocytes 0.2, Eosinophils 1, Absolute Eosinophils 0.2, Absolute Basophils 0, Platelet Estimate VERIFIED BY SMEAR, Anisocytosis 1+, PUBS MCHC 33.7 Assessment/Plan Impression/Plan: 51-year-old with history of cardiomyopathy AICD severe bullous emphysema admitted with increasing shortness of breath cough and hoarseness and new right upper lobe mass lesion. This density corresponds to a large right upper lobe bulla. The fact that his x-ray was unrevealing for mass 2 months ago makes primary malignancy less likely. Concern is raised over an area of pneumonia/ lung abscess. The courtesy of his symptoms and marked leukemoid reaction suggests that this may have been present for some time. Recommendations: Assess sputum C&S and cytology. Begin antibiotics Zithromax and Rocephin. ENT evaluation of hoarseness to exclude paralyzed vocal cord. Consult Acknowledgment - Thank you for your consult request.
[2017-03-20 16:00] VITALS: BP 124/80; BP 90/60
[2017-03-20 22:00] VITALS: BP 90/58
--- NOTE | 2017-03-21 07:36 | PN- Housestaff ---
ANDRE WOODWARD 03/21/17 0735: Subjective Follow-up For: - Lung mass - Cardiomyopathy Complaints: no complaints Tele-Events Since Last Visit: Normal sinus rhythm, HR 78-86, no overnight events. Subjective: Pt was comfortable. No complaints. were stable overnight. He remained afebrile overnight. Blood pressure remained on the lower side which is his baseline. Pulse ox 92% on room air. Did not need any supplemental oxygen. During the day, arrangements were made for CT-guided lung biopsy in the a.m. Discussed with Dr. Dan. Review of Systems Constitutional: Reports: see HPI. Objective Last 24 Hrs of Vital Signs/I&O Vital Signs Date Time Temp Pulse Resp B/P B/P Pulse O2 O2 Flow FiO2 Mean Ox Delivery Rate 03/20 2200 97.8 97 20 90/58 92 Room Air 03/20 2135 97 90/58 03/20 2046 Room Air 03/20 1600 97.5 104 20 90/60 95 03/20 1507 72 16 96/60 97 Room Air 03/20 1422 97.2 93 16 96/59 97 Room Air 03/20 1205 95 Room Air 03/20 1158 98 03/20 1112 97.5 93 16 96/64 95 Room Air Intake & Output 03/21 0800 03/21 0000 03/20 1600 Intake Total 100 100 Output Total Balance 100 100 Intake, Oral 100 100 Patient 120 lb Weight Physical Exam General Appearance: No Acute Distress Other Physical Findings: General Exam: AAOx3, No acute distress, Skin: No rashes, no breakdown HEENT: PERRLA, EOMI Neck: Supple, No JVD No cervical lymphadenopathy CVS: Reg Rate, Normal S1,S2, No MGR Resp: Decreased air entry, expiratory wheezes. Abdomen: Soft, No tenderness, Normal Bowel Sounds Neuro: Normal Speech, Strength 5/5 b/l x 4 extremities, Sensation intact, CN III -XII NL, Reflexes 2+ Extremities: No cyanosis, pedal edema Current Medications: Current Medications Sig/Yuli Start time Last Medication Dose Route Stop Time Status Admin Albuterol Sulfate 3 ML TID 03/20 2200 AC INH Albuterol Sulfate 3 ML ONCE ONE 03/20 1145 DC 03/20 INH 03/20 1146 1152 Azithromycin 500 MG 1830 03/20 1830 AC 03/20 Sodium Chloride 250 ML IV 2236 Budesonide/ 2 PUF BID 03/20 2200 AC 03/20 Formoterol Fumarate INH 2133 Bupropion HCl 200 MG BID 03/20 2200 AC 03/20 PO 2132 Carvedilol 6.25 MG BID 03/20 2200 AC 03/20 PO 213 Ceftriaxone Sodium 2,000 MG 1800 03/20 1800 AC 03/20 IV 223 Heparin Sodium 5,000 UNIT Q8 03/20 1456 AC 03/21 (Porcine) SC 0549 Ipratropium Pep 2.5 ML TID 03/20 2200 AC INH Ipratropium Pep 2.5 ML ONCE ONE 03/20 1145 DC 03/20 INH 03/20 1146 1152 Methylprednisolone 125 MG ONCE ONE 03/20 1145 DC 03/20 IV 03/20 1146 1203 Methylprednisolone 0 .STK-MED ONE 03/20 114 DC .ROUTE Non-Formulary 0 SEE ADMIN CRITERIA 03/20 1500 UNV Medication ANY Sertraline HCl 50 MG DAILY 03/20 1459 AC 03/20 PO 1726 Last 24 Hrs of Lab/Nikolai Results Last 24 Hrs of Labs/Mics: Laboratory Tests 03/21/17 0610: Sodium Pending, Potassium Pending, Chloride Pending, Carbon Dioxide Pending, Anion Gap Pending, BUN Pending, Creatinine Pending, BUN/Creatinine Ratio Pending , CBC w Diff Pending, WBC Pending, RBC Pending, Hgb Pending, Hct Pending, MCV Pending, MCH Pending, RDW Pending, Plt Count Pending, MPV Pending, PUBS MCHC Pending 03/20/17 1438: Lactic Acid Cancelled 03/20/17 1150: Anion Gap 15, Estimated GFR > 60, BUN/Creatinine Ratio 36.3 H, Glucose 96, Lactic Acid 1.6, Calcium 8.7, Iron 15 L, TIBC 215 L, Ferritin 320.0, Total Bilirubin 0.6, GGT 29, AST 11 L, ALT 19 L, Alkaline Phosphatase 218 H, Lactate Dehydrogenase 1643 H, Troponin I < 0.01, Ior-F-Tcbjgmkzmss Pept 643 H, Total Protein 6.6, Albumin 3.4 L, Globulin 3.2, Albumin/Globulin Ratio 1.1, Amylase 38, Lipase 16 L, Vitamin B12 > 1000 H, CBC w Diff MAN DIFF ORDERED, RBC 3.51 L, MCV 87.1, MCH 29.3, RDW 15.4 H, MPV 8.6, Gran % 97.7 H, Lymphocytes % 2.0 L, Monocytes % 0.2 L, Eosinophils % 0.1, Basophils % 0 L, Absolute Granulocytes 102.4 H, Segmented Neutrophils 88 H, Band Neutrophils 10 H, Absolute Lymphocytes 2.1, Monocytes 1 L, Absolute Monocytes 0.2, Eosinophils 1, Absolute Eosinophils 0.2, Absolute Basophils 0, Platelet Estimate VERIFIED BY SMEAR, Anisocytosis 1+, PUBS MCHC 33.7 Microbiology 03/20 1635 BLOOD: Blood Culture - RECD 03/20 163 BLOOD: Blood Culture - RECD 03/20 1617 URINE ROUT: Legionella Antigen - ORD 03/20 1617 URINE ROUT: Streptococcus pneumoniae Antigen (M - ORD 03/20 1617 URINE ROUT: Urine Culture - COLB 03/20 1448 LOWER RESP: Respiratory Culture - COLB 03/20 144 LOWER RESP: Gram Stain - COLB 03/20 144 LOWER RESP: Routine Culture - COLB Assessment/Plan Assessment: Mr Tejada is a 51-year-old man with a [id number] smoking history, cardiomyopathy ( dx'ed 2016, s/p AICD), hypertension, chronic bronchitis/ emphysema(not on home oxygen). He is being evaluted for a chief concern of fatigue x 1 month , shortness of breath, fever, cough, voice change x 2 wks. At the time of admission, vitals revealed temperature 97.5, pulse rate 93, respirations 16, pulse ox 95% on room air. Lab findings indicated WBC leukocytosis (104.8K) with predominant neutrophils (10% bands), minimal lymphocytes w/ no blasts(as confirmed by pathologist), hemoglobin 10.3 (baseline 13.8 one year ago), platelets 430. Electrolytes-sodium 139, potassium 4.7, chloride 98, bicarbonate 25, BUN 29, serum creatinine 0.8 (normal renal function ), normal AST and ALT 11, 19; alkaline phosphatase 218 (no history of alcohol use or liver dysfunction). EKG findings revealed normal sinus rhythm, with a right axis deviation (axis-in between +90-+120), Q waves in V1-V2, with no ST-T wave changes. Chest x-ray revealed apical lung mass on the right side. CT scan confirmed the findings- 6.5 intermediate density mass at right lung apex. Also was found in this matter changes and 0.5 cm spiculated nodule at left lung apex seen. No lymphadenopathy was noted. The last 24 hours leukocytosis 104.8--> 155.7. Increased band neutrophils. Iron studies indicated iron 15, TIBC 215, ferritin 320 (indicating anemia of chronic disease), alkaline phosphatase 218, lactate dehydrogenase 1643, vitamin B12 greater than 1000. (Likely malignancy/myelodysplastic syndrome). Echocardiogram has been ordered. Differential diagnoses: #1 lung mass (SLC ) #2 leukemoid reaction #3 lung abscess Below is the problem list and plan: #1 shortness of breath: Could be multifactorial. At this time, COPD, lung abscess, small cell lung cancer are in the differential. Primary lung cancer is usually associated with leukocytosis also. Considering the duration/acuity of changes infectious versus small cell lung cancer are to be considered. However, no paraneoplastic findings were seen. Elevated LDH, elevated vitamin B12, abnormal iron studies indicate hematological process. Myeloproliferative neoplasm/myelodysplastic syndrome is also in the differential. Flow cytometry to look for lymphoma, and cytogenetic studies for BCL ABR, Sin 2 mutation, cytogenetics for acute leukemia, 5 every deletion to be done. To a certain, the final diagnosis lung biopsy to be done-with cytology, Gram stain, culture to be done. Pro-calcitonin to delineate infection versus lung mass. #2 DVT prophylaxis-Lovenox #3 full code. Problem List: 1. Leukocytosis 2. Lung mass Pain Ratin Pain Location: Back Pain Goal: Pain 4 or less Pain Plan: Tylenol when necessary Tomorrow's Labs & Rationales: C BC, BEP, INR,-to monitor for leukocytosis, and the patient to get procedure done. LUDMILA HERNANDEZ MD 03/21/17 1048: Attending MD Review Statement Attending Statement Attending MD Statement: examined this patient, discuss w/resident/PA/[employer], agreed w/resident/PA/[employer], reviewed EMR data (avail) Attending Assessment/Plan: 51M PMH smoker, COPD, ischemic cardiomyopathy s/p AICD presenting with 1 month of fatigue, unintentional weight loss, mild fever, with worsening dyspnea and non-productive cough. Patient feels fine otherwise but has been sleeping ~14 hr /day. He feels chest congestion but is unable to bring up sputum, and has episodes of coughing fits where he feels unable to breathe. Initial labs show WBC 108,000, Hgb 10.4, platelets 430. Iron levels low, LDH 1643. Chest CT shows 6.5cm RUL mass and new 0.5cm left spiculated mass. Today, he is comfortable with no complaints other than fatigue and chest congestion. Vitals normal, exam reveals bilateral rhonchi, appears thin but not cachectic, normal cardiac and abdominal exam. WBC up to 155 today. AFebrile. 1. RUL lung mass 2. BLESSING lung mass 3. Leukocytosis with neutrophilia 4. Elevated LDH 5. Fatigue, weight loss 6. Ischemic cardiomyopathy 7. COPD Plan - Continue on telemetry for history of cardiomyopathy, relative hypotension, severely abnormal labs and imaging - Continue Ceftriaxone and Azithromycin - Send flow cytometry - Obtain infectious disease consult - Pulmonary and oncology consults - Send sputum culture and cytology - Blood cultures - Continue home medications - DVT PPx
--- NOTE | 2017-03-21 08:11 | PN- Student ---
Subjective Subjective: Patient slept well overnight. Today, he notes shortness of breath when ambulating to go to the bathroom. Continues to have cough but denies sputum production. Denies shortness of breath at rest. Current Medications Sig/Yuli Start time Last Medication Dose Route Stop Time Status Admin Albuterol Sulfate 3 ML TID 03/20 2200 AC 03/21 INH 1305 Azithromycin 500 MG 1830 03/20 1830 AC 03/20 Sodium Chloride 250 ML IV 2237 Budesonide/ 2 PUF BID 03/20 2200 AC 03/21 Formoterol Fumarate INH 0945 Bupropion HCl 200 MG BID 03/200 AC 03/21 PO 0945 Carvedilol 6.25 MG BID 03/20 2200 AC 03/21 PO 0945 Ceftriaxone Sodium 2,000 MG 1800 03/20 1800 AC 03/20 IV 2236 Heparin Sodium 5,000 UNIT Q8 03/20 1456 AC 03/21 (Porcine) SC 1356 Ipratropium [place] 2.5 ML TID 03/20 INH 1305 Sertraline HCl 50 MG DAILY 03/20 1459 AC 03/21 PO 0945 Objective Objective: Vital Signs Date Time Temp Pulse Resp B/P B/P Pulse O2 O2 Flow FiO2 Mean Ox Delivery Rate 03/21 0945 90/54 03/21 0830 97.4 90 18 90/54 93 Room Air 03/21 0820 95 Room Air 03/21 0800 Room Air 03/20 2200 97.8 97 20 90/58 92 Room Air 03/20 2135 97 90/58 03/20 2046 Room Air 03/20 1600 97.5 104 20 90/60 95 03/20 1507 72 16 96/60 97 Room Air 03/20 1422 97.2 93 16 96/59 97 Room Air Intake & Output 03/21 1600 03/21 0800 03/21 0000 Intake Total 100 100 Output Total Balance 100 100 Intake, Oral 100 100 Tele-events overnight: -Sinus rhythm, 78-92 bpm, no overnight events. Physical Exam: General: thin, in no acute distress Heart: RRR, no murmurs, rubs, or gallops, no JVD present Lung: decreased breath sounds throughout, expiratory wheezing present Abdomen: soft, non-tender, non-distended, no masses, bowel sounds present Extremities: no clubbing, cyanosis, edema Results Results: Laboratory Tests 03/20/17 1150: Anion Gap 15, Estimated GFR > 60, BUN/Creatinine Ratio 36.3 H, Glucose 96, Lactic Acid 1.6, Calcium 8.7, Iron 15 L, TIBC 215 L, Ferritin 320.0, Total Bilirubin 0.6, GGT 29, AST 11 L, ALT 19 L, Alkaline Phosphatase 218 H, Lactate Dehydrogenase 1643 H, Troponin I < 0.01, Hbn-Y-Wnzumxwratd Pept 643 H, Total Protein 6.6, Albumin 3.4 L, Globulin 3.2, Albumin/Globulin Ratio 1.1, Amylase 38, Lipase 16 L, Vitamin B12 > 1000 H, CBC w Diff MAN DIFF ORDERED, RBC 3.51 L, MCV 87.1, MCH 29.3, RDW 15.4 H, MPV 8.6, Gran % 97.7 H, Lymphocytes % 2.0 L, Monocytes % 0.2 L, Eosinophils % 0.1, Basophils % 0 L, Absolute Granulocytes 102.4 H, Segmented Neutrophils 88 H, Band Neutrophils 10 H, Absolute Lymphocytes 2.1, Monocytes 1 L, Absolute Monocytes 0.2, Eosinophils 1, Absolute Eosinophils 0.2, Absolute Basophils 0, Platelet Estimate VERIFIED BY SMEAR, Anisocytosis 1+, PUBS MCHC 33.7 Microbiology 03/21 08 URINE ROUT: Legionella Antigen - COMP 03/21 819 URINE ROUT: Streptococcus pneumoniae Antigen (M - COMP 03/20 1635 BLOOD: Blood Culture - RES 03/20 1630 BLOOD: Blood Culture - RES 03/20 1617 URINE ROUT: Urine Culture - COLB 03/20 1447 LOWER RESP: Routine Culture - COLB 03/20 1150 LOWER RESP: Respiratory Culture - RECD 03/20 1150 LOWER RESP: Gram Stain - RECD Imaging: -CT scan shows mass at right lung apex and severe bullous emphysema. Assessment/Plan Assessment: This is a 51 year-old male smoker with a PMH of cardiomyopathy (s/p AICD in 2016 ), HTN, COPD, emphysema, chronic bronchitis, who presented to the ED 1 day ago with worsening shortness of breath and fatigue x2 weeks and change in voice x1 week. Patient is doing well today, but notes shortness of breath when ambulating. Plan: For shortness of breath, fatigue, cough: -Started IV azithromycin and ceftriaxone. Plan to eventually discharge on PO antibiotics after clinical improvement. -No surgical intervention at this time. -Follow pulmonology recommendations. -Blood culture, sputum culture and gram stain pending. -CBC, electrolytes, BUN pending. For change in voice: -Await ENT evaluation. Continue home medications: Carvedilol 6.25mg BID PO Bupropion 200mg BID PO Budesonide/formoterol fumarate 2 puffs BID Albuterol 2 puffs Q4-6HRS PRN Fluticasone/salmeterol 1 puff BID Sacubitril/valsartan 97mg/103mg BID PO Sertraline 50mg QDAY PO [place]orta B[place]so[place], MS3
--- NOTE | 2017-03-21 08:22 | PN- Pulmonary ---
Subjective HPI/Critical Care Issues: Patient has no specific complaints he's been unable to produce any significant sputum is no hemoptysis he remains afebrile on room air. Repeat labs are pending. Objective Current Medications: Current Medications Sig/Yuli Start time Last Medication Dose Route Stop Time Status Admin Albuterol Sulfate 3 ML TID 03/20 2200 AC 03/21 INH 0754 Albuterol Sulfate 3 ML ONCE ONE 03/20 1145 DC 03/20 INH 03/20 1146 1152 Azithromycin 500 MG 1830 03/20 183 AC 03/20 Sodium Chloride 250 ML IV 2237 Budesonide/ 2 PUF BID 03/20 2200 AC 03/20 Formoterol Fumarate INH 213 Bupropion HCl 200 MG BID 03/20 2200 AC 03/20 PO 2133 Carvedilol 6.25 MG BID 03/20 2200 AC 03/20 PO 2135 Ceftriaxone Sodium 2,000 MG 1800 03/20 1800 AC 03/20 IV 2236 Heparin Sodium 5,000 UNIT Q8 03/20 1456 AC 03/21 (Porcine) SC 0549 Ipratropium [place] 2.5 ML TID 03/20 2200 AC 03/21 INH 0754 Ipratropium [place] 2.5 ML ONCE ONE 03/20 1145 DC 03/20 INH 03/20 1146 1152 Methylprednisolone 125 MG ONCE ONE 03/20 1145 DC 03/20 IV 03/20 1146 1203 Methylprednisolone 0 .STK-MED ONE 03/20 1145 DC .ROUTE Non-Formulary 0 SEE ADMIN CRITERIA 03/20 1500 UNV Medication ANY Sertraline HCl 50 MG DAILY 03/20 1459 AC 03/20 PO 1726 Vital Signs & I&O Last 24 Hrs of Vitals and I&O: Vital Signs Date Time Temp Pulse Resp B/P B/P Pulse O2 O2 Flow FiO2 Mean Ox Delivery Rate 03/21 0820 95 Room Air 03/20 2200 97.8 97 20 90/58 92 Room Air 03/205 97 90/58 03/20 2046 Room Air 03/20 1600 97.5 104 20 90/60 95 03/20 1507 72 16 96/60 97 Room Air 03/20 1422 97.2 93 16 96/59 97 Room Air 03/20 1205 95 Room Air 03/20 1158 98 03/20 1112 97.5 93 16 96/64 95 Room Air Intake & Output 03/21 1600 03/21 0800 03/21 0000 Intake Total 100 100 Output Total Balance 100 100 Intake, Oral 100 100 Oxygen saturation 95% exam of his chest shows diminished breath sounds are no focal wheezes cardiac exam shows regular S1 and S2 without murmurs Impression/Plan Impression/Plan Impression/Plan: 51-year-old with history of cardiomyopathy AICD severe bullous emphysema admitted with increasing shortness of breath cough and hoarseness and new right upper lobe mass lesion. This density corresponds to a large right upper lobe bulla. The fact that his x-ray was unrevealing for mass 2 months ago makes primary malignancy less likely. Concern is raised over an area of pneumonia/ lung abscess. The chronicity of his symptoms and marked leukemoid reaction suggests that this may have been present for some time. Recommendations: Assess sputum C&S and cytology. Begin antibiotics Zithromax and Rocephin. ENT evaluation of hoarseness to exclude paralyzed vocal cord. Aggressive pulmonary toilet in the hopes of inducing sputum. Await hematology evaluation. Patient remained stable will hope to convert to oral antibiotics and if there is no improvement outpatient PET scan and CAT scan guided needle biopsy
[2017-03-21 08:30] VITALS: BP 90/54
[2017-03-21 08:47] LABS: ABSOLUTE BASOPHIL COUNT 0 /CUMM (0.0-0.2); ABSOLUTE EOSINOPHIL COUNT 0 /CUMM (0.0-0.7); BASOPHIL % 0 % (0.0-2.0); EOSINOPHIL % 0 % (0-5); HEMATOCRIT 31.8 % (42-52); MEAN CORPUSCULAR HGB CONC 33.5 G/DL (33.0-37.0); MEAN PLATELET VOLUME 9.3 FL (7.4-10.4)
[2017-03-21 09:26] LABS: ABSOLUTE GRANULOCYTE CT 149.3 /CUMM (1.4-6.5); ABSOLUTE LYMPH COUNT 3.1 /CUMM (1.2-3.4); ABSOLUTE MONOCYTE COUNT 3.3 /CUMM (0.10-0.60); GRANULOCYTE % 95.9 % (42.2-75.2); MEAN CORPUSCULAR HGB 29.9 PG (27.0-31.0); MEAN CORPUSCULAR VOLUME 89.2 FL (80.0-94.0); PLATELET COUNT 429 /CUMM (130-400); RED BLOOD CELL CT 3.57 /CUMM (4.70-6.10)
[2017-03-21 09:55] LABS: WHITE BLOOD CELL COUNT 155.7 /CUMM (4.8-10.8)
--- NOTE | 2017-03-21 10:01 | Cons- Oncology ---
General Information and HPI Consulting Request Date of Consult: 03/21/17 Requested By: LUDMILA HERNANDEZ MD Reason for Consult: Lung mass, leukocytosis Source of Information: patient Exam Limitations: no limitations History of Present Illness: Mr. Tejada is a 51-year-old male with cardiomyopathy s/p AICD placement, COPD, tobacco use, and HTN who presented to ED with shortness of breath, fatigue, cough, and voice changes. He states he started having some fatigue about 1 month ago and coughing 2 weeks ago. He reports dyspnea about 2 weeks ago. Cough was productive of clear to year sputum. He started having changes in his voice about 1 week ago. He reports some weight loss about 1 year ago. He denies any sick contact. He has no changes in his appetite. He has some low grade temperature last week. He has no changes in his bowel. He has no recent travels. He is not working at the moment due to his COPD. He is a current smoker. He drinks alcohol rarely. He denies any drug usage. In the ED, blood work demonstrated an increase in WBC to 104,800. CXR demonstrated new right apical lung mass as compared to 12/27/2016. Follow up CT scan demonstrated 6.5 cm intermediate density mass at the right lung apex and new 0.5 cm spiculated nodule in the left lung apex. He was admitted for further evaluation. He currently feels well. Allergies/Medications Allergies: Coded Allergies: NO KNOWN ALLERGIES (06/06/13) Home Med List: Albuterol Sulfate (Proair Hfa) 90 MCG HFA.AER.AD 2 PUF INH Q4-6 PRN PRN SHORTNESS OF BREATH (Reported) Albuterol Sulfate 2.5 MG/3 ML (0.083 %) VIAL.NEB 1 Vial INH/VIOLETTE Q4P PRN SHORTNESS OF BREATH (Reported) Bupropion HCl (Bupropion HCl Sr) 200 MG TABLET.ER 1 TAB PO BID MENTAL HEALTH (Reported) Carvedilol 6.25 MG TABLET 1 TAB PO BID HEART (Reported) Fluticasone/Salmeterol (Advair 500-50 Diskus) 500 MCG-50 MCG/DOSE BLST.W.DEV 1 PUF INH BID BREATHING PROBLEMS (Reported) Sacubitril/Valsartan (Entresto 97 MG-103 MG Tablet) 97 MG-103 MG TABLET 1 TAB PO BID HEART (Reported) Sertraline HCl 50 MG TABLET 1 TAB PO DAILY MENTAL HEALTH (Reported) Current Medications: Current Medications Sig/Yuli Start time Last Medication Dose Route Stop Time Status Admin Albuterol Sulfate 3 ML TID 03/20 2200 AC 03/21 INH 0754 Albuterol Sulfate 3 ML ONCE ONE 03/20 1145 DC 03/20 INH 03/20 1146 1152 Azithromycin 500 MG 1830 03/20 1830 AC 03/20 Sodium Chloride 250 ML IV 2237 Budesonide/ 2 PUF BID 03/20 2200 AC 03/20 Formoterol Fumarate INH 4 Bupropion HCl 200 MG BID 03/20 2200 AC 03/20 PO 2133 Carvedilol 6.25 MG BID 03/20 220 AC 03/20 PO 2135 Ceftriaxone Sodium 2,000 MG 1800 03/20 1800 AC 03/20 IV 2236 Heparin Sodium 5,000 UNIT Q8 03/20 1456 AC 03/21 (Porcine) SC 0549 Ipratropium [place] 2.5 ML TID 03/20 2200 AC 03/21 INH 0754 Ipratropium [place] 2.5 ML ONCE ONE 03/20 1145 DC 03/20 INH 03/20 1146 1152 Methylprednisolone 125 MG ONCE ONE 03/20 1145 DC 03/20 IV 03/20 1146 1203 Methylprednisolone 0 .STK-MED ONE 03/20 1145 DC .ROUTE Non-Formulary 0 SEE ADMIN CRITERIA 03/20 1500 UNV Medication ANY Sertraline HCl 50 MG DAILY 03/20 1459 AC 03/20 PO 1726 Review of Systems Review of Systems Constitutional: Reports: fever, malaise. Denies: chills, weakness. EENTM: Reports: see HPI. Cardiovascular: Denies: chest pain, palpitations, peripheral edema. Respiratory: Reports: cough, short of breath, sputum production. Denies: hemoptysis, wheezing. GI: Denies: abdominal pain, diarrhea, nausea, bloody stool, changes in stool, vomiting. Genitourinary: Denies: dysuria. Musculoskeletal: Denies: back pain. Skin: Denies: rash. Neurological/Psychological: Denies: numbness. Hematologic/Endocrine: Denies: bruising, bleeding. Immunologic/Allergic: Denies: lymphadenopathy. 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 Psychosocial History Where Do You Live? Home Smoking Status: Current Everyday Smoker ETOH Use: occasional use Illicit Drug Use: denies illicit drug use Living Will? no Functional Ability ADLs Independent: dressing, eating, toileting, bathing. Ambulation: independent IADLs Independent: shopping, housework, finances, food prep, telephone, transportation , medication admin. Exam & Diagnostic Data Vital Signs and I&O Vital Signs Date Time Temp Pulse Resp B/P B/P Pulse O2 O2 Flow FiO2 Mean Ox Delivery Rate 03/21 0830 97.4 90 18 90/54 93 Room Air 03/21 0820 95 Room Air 03/20 2200 97.8 97 20 90/58 92 Room Air 03/20 2135 97 90/58 03/20 2046 Room Air 03/20 1600 97.5 104 20 90/60 95 03/20 1507 72 16 96/60 97 Room Air 03/20 1422 97.2 93 16 96/59 97 Room Air 03/20 1205 95 Room Air 03/20 1158 98 03/20 1112 97.5 93 16 96/64 95 Room Air Intake & Output 03/21 1600 03/21 0800 03/21 0000 Intake Total 100 100 Output Total Balance 100 100 Intake, Oral 100 100 Physical Exam General Appearance: no apparent distress, alert, awake, comfortable Head: atraumatic, normal appearance Eyes: Bilateral: PERRL, EOMI. Ears, Nose, Throat: normal pharynx Respiratory: normal breath sounds, chest non-tender, no respiratory distress Cardiovascular: regular rate/rhythm, normal peripheral pulses Gastrointestinal: normal bowel sounds, soft, non-tender, no organomegaly Extremities: normal inspection, no edema Neurologic/Psych: awake, alert, oriented x 3 Skin: intact Lymphatic: no adenopathy Last 48 Hours of Lab Results: Laboratory Tests 03/21 03/20 03/20 0610 1438 1150 Chemistry Sodium (137 - 145 mmol/L) 138 139 Potassium (3.5 - 5.1 mmol/L) 3.7 4.7 Chloride (98 - 107 mmol/L) 99 98 Carbon Dioxide (22 - 30 mmol/L) 22 25 Anion Gap (5 - 16) 17 H 15 BUN (9 - 20 mg/dL) 32 H 29 H Creatinine (0.7 - 1.2 mg/dL) 0.8 0.8 Estimated GFR (>60 ml/min) > 60 > 60 BUN/Creatinine Ratio (7 - 25 %) 40.0 H 36.3 H Glucose (65 - 99 mg/dL) 96 Lactic Acid (0.7 - 2.1 mmol/L) Cancelled 1.6 Calcium (8.4 - 10.2 mg/dL) 8.7 Iron (49 - 181 ug/dL) 15 L TIBC (261 - 462 ug/dL) 215 L Ferritin (17.9 - 464 ng/mL) 320.0 Total Bilirubin (0.2 - 1.3 mg/dL) 0.6 GGT (15 - 73 U/L) 29 AST (17 - 59 U/L) 11 L ALT (21 - 72 U/L) 19 L Alkaline Phosphatase (< 127 U/L) 218 H Lactate Dehydrogenase (313 - 618 U/L) 1643 H Troponin I (<0.11 ng/ml) < 0.01 [id number] Pept (<125 pg/mL) 643 H Total Protein (6.3 - 8.2 g/dL) 6.6 Albumin (3.5 - 5.0 g/dL) 3.4 L Globulin (1.9 - 4.2 gm/dL) 3.2 Albumin/Globulin Ratio (1.1 - 2.2 %) 1.1 Amylase (30 - 110 U/L) 38 Lipase (23 - 300 U/L) 16 L Vitamin B12 (239 - 931 pg/mL) > 1000 H Hematology CBC w Diff Pending MAN DIFF ORDERED WBC (4.8 - 10.8 /CUMM) Pending 104.8 *H RBC (4.70 - 6.10 /CUMM) Pending 3.51 L Hgb (14.0 - 18.0 G/DL) Pending 10.3 L Hct (42 - 52 %) Pending 30.6 L MCV (80.0 - 94.0 FL) Pending 87.1 MCH (27.0 - 31.0 PG) Pending 29.3 RDW (11.5 - 14.5 %) Pending 15.4 H Plt Count (130 - 400 /CUMM) Pending 430 H MPV (7.4 - 10.4 FL) Pending 8.6 Gran % (42.2 - 75.2 %) 97.7 H Lymphocytes % (20.5 - 51.1 %) 2.0 L Monocytes % (1.7 - 9.3 %) 0.2 L Eosinophils % (0 - 5 %) 0.1 Basophils % (0.0 - 2.0 %) 0 L Absolute Granulocytes (1.4 - 6.5 /CUMM) 102.4 H Segmented Neutrophils (42.2 - 75.2 %) 88 H Band Neutrophils (0.0 - 5.0 %) 10 H Absolute Lymphocytes (1.2 - 3.4 /CUMM) 2.1 Monocytes (1.7 - 9.3 %) 1 L Absolute Monocytes (0.10 - 0.60 /CUMM) 0.2 Eosinophils (0 - 5.0 %) 1 Absolute Eosinophils (0.0 - 0.7 /CUMM) 0.2 Absolute Basophils (0.0 - 0.2 /CUMM) 0 Platelet Estimate (ADEQUATE) VERIFIED BY SMEAR Anisocytosis 1+ PUBS MCHC (33.0 - 37.0 G/DL) Pending 33.7 Imaging/Other Studies: Chest CT 03/20/2017: LUNGS: At the medial aspect of the right lung apex, there is a new 6.5 x 5.4 x 6.1 cm intermediate density (29 Hounsfield units) masslike opacity, occupying a bulla seen on the prior study. This is a large area of pleural attachment along the right aspect of the superior mediastinum and anterior chest wall at the right lung apex. No appreciable extension through the adjacent chest wall. There is severe bullous emphysema in both lungs. There is a new 0.5 x 0.4 cm spiculated nodule at the medial aspect of the left upper lobe on image 85/592 of series 5. A subtle linear 6 cm focus of scarring in the lateral aspect of the left upper lobe on image 20/74 of series 2 is unchanged. Central airways are clear. MEDIASTINUM: Calcific atherosclerosis is present in the thoracic aorta and coronary arteries. Heart is normal in size. Trace pericardial effusion. No adenopathy. PLEURA: As above, the right apical mass has a large area of pleural attachment. No pleural effusion. No pleural nodularity. AXILLA: No lymphadenopathy. UPPER ABDOMEN: Unremarkable. OSSEOUS STRUCTURES: Minimal multilevel degenerative disc disease is present in the thoracic spine. More moderate to severe focal degenerative disc disease is present at L2-L3. Assessment/Plan Assessment: Mr. Tejada is a 51-year-old male with cardiomyopathy s/p AICD, HTN, and tobacco usage who presented to [facility] with fatigue, dyspnea, cough, and voice changes. He was noted to have leukocytosis of 104,800 and 6.5 cm right apical lung mass. Mass is new as compared to CXR done in December 2016. There is also a small 0.5 cm left apical lung mass. There are no noted lymphadenopathy in the mediastinal or hilar regions. He had no lymphadenopathy on examination. He does have weight loss, fatigue, and low grade fever. These symptoms are nonspecific. Etiology of the lung mass is unclear as it may be infectious or malignant. Small cell lung malignancy may presents with the rapid growth. Infectious etiology would be more likely to have the rapid growth. Pulmonary medicine has seen patient. It would be reasonable to treat for possible underlying abscess and have short interval imaging. PET scan may be of limited use as infectious etiology would also demonstrate increased aviditiy. He would need a tissue diagnosis. Sputum and blood cultures are pending. If he does undergo biopsy, tissue should also be sent for cultures. He would need staging with abdominal imaging if mass does not improve. With regard to his leukocytosis, the differential is remarkable for bandemia. The left shift makes it less likely to be malignant in origin. Peripheral smear was reviewed by me today and demonstrated increase leukocytosis with predominate segmented neutrophils and bands and increased platelet with large to giant platelets. These suggest more of a reactive process. Overall, it seems to be a leukomoid reaction. If continues to be elevated, blood work may be sent for flow cytometry and cytogenetics (BCR-ABL, JAK2). Recommendations: 1. Trial of antibiotics for pulmonary abscess 2. Repeat imaging in 2-4 weeks 3. Tissue biopsy if persistent mass 4. Follow up cultures 5. If persistent leukocytosis, send for flow cytometry and cytogenetics (BCR-ABL , JAK2) Problem List: 1. Leukocytosis 2. Lung mass Other Findings/Comments: Please call [phone] with any questions or concerns. Consult Acknowledgment - Thank you for your consult request.
--- NOTE | 2017-03-21 10:50 | Admission Certification ---
Admission Certification Certification Statement - As attending physician, I certify that at the time of - admission, based on clinical presentation, severity of - symptoms, need for further diagnostic testing and - therapeutic interventions, and risk of adverse outcomes - without in-hospital treatment, in my clinical assessment, - this patient requires an acute hospital stay for a minimum - of two nights or longer. I have also considered psychsocial - factors such as support system, advanced age, financial - issues, cognitive issues, and failed out-patient treatments, - past re-admission history, safety of patient, and lack of - compliance as applicable. Specific rationale supporting this admission is: WBC 108,000 with RUL lung mass, dyspnea, fever
--- NOTE | 2017-03-21 12:14 | Cons- Ear,Nose&Throat ---
General Information and HPI Consulting Request Date of Consult: 03/21/17 Requested By: LUDMILA Rae MD Reason for Consult: throat congetion and hoarsness for 2 weeks Source of Information: patient, old records Exam Limitations: no limitations History of Present Illness: [place] was noticed to have difficulty breathing and chest throat congetion in the past two weeks. He ahs no trouble swallowing , no sore throat, He did notice difficulty brething with mcuous in the throat in the past two weeks Allergies/Medications Allergies: Coded Allergies: NO KNOWN ALLERGIES (06/06/13) Home Med List: Albuterol Sulfate (Proair Hfa) 90 MCG HFA.AER.AD 2 PUF INH Q4-6 PRN PRN SHORTNESS OF BREATH (Reported) Albuterol Sulfate 2.5 MG/3 ML (0.083 %) VIAL.NEB 1 Vial INH/VIOLETTE Q4P PRN SHORTNESS OF BREATH (Reported) Bupropion HCl (Bupropion HCl Sr) 200 MG TABLET.ER 1 TAB PO BID MENTAL HEALTH (Reported) Carvedilol 6.25 MG TABLET 1 TAB PO BID HEART (Reported) Fluticasone/Salmeterol (Advair 500-50 Diskus) 500 MCG-50 MCG/DOSE BLST.W.DEV 1 PUF INH BID BREATHING PROBLEMS (Reported) Sacubitril/Valsartan (Entresto 97 MG-103 MG Tablet) 97 MG-103 MG TABLET 1 TAB PO BID HEART (Reported) Sertraline HCl 50 MG TABLET 1 TAB PO DAILY MENTAL HEALTH (Reported) Past History Medical History Blood Transfusion Hx: No Neurological: NONE EENT: NONE Cardiovascular: cardiomyopathy, CHF, defibrillator Respiratory: bronchitis, COPD, emphysema Gastrointestinal: NONE Hepatic: NONE Renal: NONE Musculoskeletal: NONE Psychiatric: NONE Endocrine: NONE Blood Disorders: NONE Cancer(s): 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 Psychosocial History Where Do You Live? Home Smoking Status: Current Everyday Smoker ETOH Use: occasional use Illicit Drug Use: denies illicit drug use Living Will? no Functional Ability ADLs Independent: dressing, eating, toileting, bathing. Ambulation: independent IADLs Independent: shopping, housework, finances, food prep, telephone, transportation , medication admin. Review of Systems Review of Systems: reviewed Exam & Diagnostic Data Vital Signs and I&O Vital Signs Date Time Temp Pulse Resp B/P B/P Pulse O2 O2 Flow FiO2 Mean Ox Delivery Rate 03/21 0945 90/54 03/21 0830 97.4 90 18 90/54 93 Room Air 03/21 0820 95 Room Air 03/21 0800 Room Air 03/20 2200 97.8 97 20 90/58 92 Room Air 03/20 2135 97 90/58 03/20 2046 Room Air 03/20 1600 97.5 104 20 90/60 95 03/20 1507 72 16 96/60 97 Room Air 03/20 1422 97.2 93 16 96/59 97 Room Air Intake & Output 03/21 1600 03/21 0800 03/21 0000 03/20 1600 03/20 0000 Intake Total 100 100 Output Total Balance 100 100 Intake, Oral 100 100 Patient 120 lb Weight ENT ex,no acute distress,Nasal cavities clear.Neck neck op,Normal.Fiberoptic scope ex, right vocal cord paralysis in the paramedian position ,no mass, no stridor,No airway oabstruciton.Neck neg for any mass Physical Exam General Appearance: well developed/nourished Head: atraumatic, normal appearance Ears, Nose, Throat: normal pharynx (see note) Neck: supple Assessment/Plan Assessment/Plan right vocal cord paralysis most likely from the process in the right lung.f/u in offfice 2 to 3 weeks .Patient so informed Consult Acknowledgment - Thank you for your consult request.
--- NOTE | 2017-03-21 13:26 | ECHOCARDIOGRAM REPORT ---
LAURI JOHNSON Age: 51 : 1965 Gender: M Exam Date: 03/20/2017 18:51 Exam Location: [address] Ht (in): 68 Wt (lb): 120 BSA: 1.60 BP: 90 / 60 Ordering Physician: DEVANTE SHEPPARD MD Referring Physician: Hai Gordon MD Technologist: Alisa Ferguson [facility] Room Number: [id number] Indications: CARDIOMYOPATHY Rhythm: Sinus Technical Quality: Fair FINDINGS Left Ventricle Normal size left ventricle. Borderline to mild concentric left ventricular hypertrophy. Abnormal septal motion. No other obvious regional wall motion abnormalities. Normal left ventricular ejection fraction estimated at 55%. Abnormal relaxation filling pattern of the left ventricle for age (stage 1 diastolic dysfunction). Right Ventricle Normal right ventricular size and function. Right Atrium Normal right atrial size. Left Atrium Normal left atrial size. Mitral Valve Mitral valve mildly thickened. Aortic Valve Trileaflet aortic valve. Mild aortic sclerosis. No aortic valve stenosis or regurgitation. Tricuspid Valve Mildly thickened tricuspid valve. Mild tricuspid regurgitation. Right ventricular systolic pressure estimated at 35 mmHg. Pulmonic Valve Pulmonic valve not well visualized. No pulmonic regurgitation. Pericardium Small pericardial effusion. No echocardiographic findings to suggest a hemodynamically significant pericardial effusion. Great Vessels Normal size aortic root. Normal size inferior vena cava. CONCLUSIONS Normal size left ventricle. Borderline to mild concentric left ventricular hypertrophy. Abnormal septal motion. No other obvious regional wall motion abnormalities. Normal left ventricular ejection fraction estimated at 55%. Abnormal relaxation filling pattern of the left ventricle for age (stage 1 diastolic dysfunction). Normal right ventricular size and function. Normal atrial size. Mild tricuspid regurgitation. Right ventricular systolic pressure estimated at 35 mmHg. Small pericardial effusion. Hai Gordon M.D. (Electronically Signed) Final Date: 21 March 2017 13:25 MEASUREMENTS (Male / Female) Normal Values 2D ECHO LV Diastolic Diameter PLAX 4.9 cm 4.2 - 5.9 / 3.9 - 5.3 cm LV Systolic Diameter PLAX 3.4 cm 2.1 - 4.0 cm LV Fractional Shortening PLAX 30.6 % 25 - 46 % LV Ejection Fraction 2D Teich 58.0 % IVS Diastolic Thickness 0.7 cm LVPW Diastolic Thickness 1.1 cm LV Relative Wall Thickness 0.4 RV Internal Dim ED PLAX 2.7 cm 1.9 - 3.8 cm LVOT Diameter 1.8 cm Aortic Root Diameter 3.2 cm LA Systolic Diameter LX 2.3 cm 3.0 - 4.0 / 2.7 - 3.8 cm LA Volume 24.0 cm 18 - 58 / 22 - 52 cm DOPPLER AV Peak Velocity 141.0 cm/s AV Peak Gradient 8.0 mmHg AV Mean Velocity 106.0 cm/s AV Mean Gradient 5.0 mmHg AV Velocity Time Integral 24.7 cm LVOT Peak Velocity 97.8 cm/s LVOT Peak Gradient 3.8 mmHg LVOT Mean Velocity 65.3 cm/s LVOT Mean Gradient 2.0 mmHg LVOT Velocity Time Integral 15.6 cm LVOT Stroke Volume 39.7 cm AV Area Cont Eq vti 1.6 cm AV Area Cont Eq pk 1.8 cm MV Peak Velocity 95.6 cm/s MV Peak Gradient 3.7 mmHg MV Mean Velocity 56.8 cm/s MV Mean Gradient 2.0 mmHg Mitral E Point Velocity 61.0 cm/s Mitral A Point Velocity 67.5 cm/s Mitral E to A Ratio 0.9 MV PHT Velocity 84.5 cm/s MV Deceleration [place] 418.0 cm/s MV Pressure Half Time 60.6 ms MV Area PHT 3.6 cm MV Deceleration Time 304.0 ms TR Peak Velocity 273.0 cm/s TR Peak Gradient 29.8 mmHg Right Atrial Pressure 5.0 mmHg Pulmonary Artery Systolic Pressu 34.8 mmHg Right Ventricular Systolic Press 34.8 mmHg PV Peak Velocity 85.1 cm/s PV Peak Gradient 2.9 mmHg PV Mean Velocity 61.1 cm/s PV Mean Gradient 2.0 mmHg PV Velocity Time Integral 14.1 cm LV E' Lateral Velocity 8.6 cm/s Mitral E to LV E' Lateral Ratio 7.1 LV E' Septal Velocity 5.9 cm/s Mitral E to LV E' Septal Ratio 10.3
--- NOTE | 2017-03-21 16:40 | Cons- Thoracic Surgery ---
General Information and HPI Consulting Request Date of Consult: 03/21/17 Requested By: LUDMILA HERNANDEZ MD Reason for Consult: Right apical lung mass with significant leukocytosis Source of Information: patient, old records, PCP Exam Limitations: no limitations History of Present Illness: The patient is a 51-year-old gentleman yesterday with the emergency room with shortness of breath fatigue cough and changes to his voice. The symptoms been ongoing and progressive for the last 2 weeks. On evaluation he was found significant leukocytosis with a white blood cell count of greater than 100,000 and apical lung mass which is heterogeneous and in the setting of an underlying significant bullous emphysema. Thoracic surgery evaluation is asked for management and treatment. Allergies/Medications Allergies: Coded Allergies: NO KNOWN ALLERGIES (06/06/13) Home Med List: Albuterol Sulfate (Proair Hfa) 90 MCG HFA.AER.AD 2 PUF INH Q4-6 PRN PRN SHORTNESS OF BREATH (Reported) Albuterol Sulfate 2.5 MG/3 ML (0.083 %) VIAL.NEB 1 Vial INH/VIOLETTE Q4P PRN SHORTNESS OF BREATH (Reported) Bupropion HCl (Bupropion HCl Sr) 200 MG TABLET.ER 1 TAB PO BID MENTAL HEALTH (Reported) Carvedilol 6.25 MG TABLET 1 TAB PO BID HEART (Reported) Fluticasone/Salmeterol (Advair 500-50 Diskus) 500 MCG-50 MCG/DOSE BLST.W.DEV 1 PUF INH BID BREATHING PROBLEMS (Reported) Sacubitril/Valsartan (Entresto 97 MG-103 MG Tablet) 97 MG-103 MG TABLET 1 TAB PO BID HEART (Reported) Sertraline HCl 50 MG TABLET 1 TAB PO DAILY MENTAL HEALTH (Reported) Current Medications: Current Medications Sig/Yuli Start time Last Medication Dose Route Stop Time Status Admin Albuterol Sulfate 3 ML TID 03/20 2200 AC 03/21 INH 1305 Azithromycin 500 MG 03/20 Sodium Chloride 250 ML IV 2237 Budesonide/ 2 PUF BID 03/20 Formoterol Fumarate INH 0945 Bupropion HCl 200 MG BID 03/20 PO 0945 Carvedilol 6.25 MG BID 03/20 PO 0945 Ceftriaxone Sodium 2,000 MG 1800 03/20 1800 AC 03/20 IV 2236 Guaifenesin 600 MG Q12 03/21 1520 AC PO Heparin Sodium 5,000 UNIT Q8 03/20 1456 AC 03/21 (Porcine) SC 03/22 0000 1356 Ipratropium [place] 2.5 ML TID 03/20 2200 AC 03/21 INH 1305 Patient Medication 1 ED .[facility]-MED ONE 03/21 1414 [place] Teaching ED 03/21 1415 Sertraline HCl 50 MG DAILY 03/20 1459 03/21 PO 0945 Past History Medical History Blood Transfusion Hx: No Neurological: NONE EENT: NONE Cardiovascular: cardiomyopathy, CHF, defibrillator Respiratory: bronchitis, COPD, emphysema Gastrointestinal: NONE Hepatic: NONE Renal: NONE Musculoskeletal: NONE Psychiatric: NONE Endocrine: NONE Blood Disorders: NONE Cancer(s): 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 Psychosocial History Where Do You Live? Home Smoking Status: Current Everyday Smoker ETOH Use: occasional use Illicit Drug Use: denies illicit drug use Living Will? no Functional Ability ADLs Independent: dressing, eating, toileting, bathing. Ambulation: independent IADLs Independent: shopping, housework, finances, food prep, telephone, transportation , medication admin. Review of Systems Review of Systems: Review of systems is notable for the shortness of breath which is with low level exertion. He has a general fatigue over the past 1-2 months. He has been coughing and is nonproductive. The voice changes of been happening for the last few days and are new with a significant hoarseness. He is had no pleuritic-type chest pain and no fevers night sweats or chills. Review of systems is unremarkable. Exam & Diagnostic Data Vital Signs and I&O Vital Signs Date Time Temp Pulse Resp B/P B/P Pulse O2 O2 Flow FiO2 Mean Ox Delivery Rate 03/21 0945 90/54 03/21 0830 97.4 90 18 93 Room Air 03/21 0820 95 Room Air 03/21 0800 Room Air 03/20 2200 97.8 97 20 90/58 92 Room Air 03/20 2135 97 90/58 03/20 2046 Room Air Intake & Output 03/21 03/21 0803/21 0000 03/20 0803/20 0000 Intake Total 720 100 100 Output Total Balance 720 100 100 Intake, Oral 720 100 100 Patient 120 lb Weight Physical Exam: Physical examination he is sitting up in bed and is comfortable. His skin is warm and well perfused no suspicious lesions noted. The sclerae are anicteric and mucous membranes are moist. There is no cervical or subclavicular lymphadenopathy. Sounds are very minimal bilaterally with no wheezes rhonchi noted. His cardiac exam shows regular rhythm and rate no murmurs or sounds. There are no palpable masses in his supraclavicular or anterior chest area. There is no tenderness on chest wall palpation. He has a general fullness on the right hemithorax with some evidence of venous congestion. His abdomen is soft and nontender with no masses. The periphery shows no cyanosis clubbing or edema. His neurologic exam is grossly normal for motor and sensory function. Last 24 Hours of Labs: Laboratory Tests 03/21 03/21 0819 0610 Chemistry Sodium (137 - 145 mmol/L) 138 Potassium (3.5 - 5.1 mmol/L) 3.7 Chloride (98 - 107 mmol/L) 99 Carbon Dioxide (22 - 30 mmol/L) 22 Anion Gap (5 - 16) 17 H BUN (9 - 20 mg/dL) 32 H Creatinine (0.7 - 1.2 mg/dL) 0.8 Estimated GFR (>60 ml/min) > 60 BUN/Creatinine Ratio (7 - 25 %) 40.0 H Hematology CBC w Diff MAN DIFF ORDERED WBC (4.8 - 10.8 /CUMM) 155.7 *H RBC (4.70 - 6.10 /CUMM) 3.57 L Hgb (14.0 - 18.0 G/DL) 10.7 L Hct (42 - 52 %) 31.8 L MCV (80.0 - 94.0 FL) 89.2 MCH (27.0 - 31.0 PG) 29.9 RDW (11.5 - 14.5 %) 15.0 H Plt Count (130 - 400 /CUMM) 429 H MPV (7.4 - 10.4 FL) 9.3 Gran % (42.2 - 75.2 %) 95.9 H Lymphocytes % (20.5 - 51.1 %) 2.0 L Monocytes % (1.7 - 9.3 %) 2.1 Eosinophils % (0 - 5 %) 0 Basophils % (0.0 - 2.0 %) 0 L Absolute Granulocytes (1.4 - 6.5 /CUMM) 149.3 H Segmented Neutrophils (42.2 - 75.2 %) 82 H Band Neutrophils (0.0 - 5.0 %) 17 H Absolute Lymphocytes (1.2 - 3.4 /CUMM) 3.1 Lymphocytes (20.5 - 51.1 %) 1 L Absolute Monocytes (0.10 - 0.60 /CUMM) 3.3 H Absolute Eosinophils (0.0 - 0.7 /CUMM) 0 Absolute Basophils (0.0 - 0.2 /CUMM) 0 Platelet Estimate (ADEQUATE) ADEQUATE Normocytic RBCs VERIFIED Normochromic RBCs VERIFIED PUBS MCHC (33.0 - 37.0 G/DL) 33.5 Urines Urinalysis MOD H Urine Color (YEL,AMB,STR) YEL Urine Clarity (CLEAR) CLEAR Urine pH (5.0 - 8.0) 6.0 Ur Specific [place] (1.001 - 1.035) 1.025 Urine Protein (NEG,<30 MG/DL) TRACE H Urine Ketones (NEG) NEG Urine Nitrite (NEG) NEG Urine Bilirubin (NEG) NEG Urine Urobilinogen (0.1 - 1.0 EU/dl) 0.2 Ur Leukocyte Esterase (NEG) NEG Ur Microscopic SEDIMENT EXAMINED Urine RBC (0 - 5 /HPF) 15-25 H Urine WBC (0 - 2 /HPF) 1-3 H Ur Epithelial Cells (NONE,FEW) FEW Urine Bacteria (NEG/NONE) FEW H Hyaline Casts (0/LPF) RARE H Granular Casts (NONE /LPF) RARE H Urine Mucus (FEW,NONE) MOD H Micro UA Comment MORE INFO: H Urine Hemoglobin (NEG) MOD H Urine Glucose (N MG/DL) NEG Imaging Results: PATIENT: LAURI JOHNSON PRESENT AGE: 51 PATIENT ACCOUNT NO: [id number] : 63 LOCATION: [facility] ORDERING PHYSICIAN: KIMBERLY FLANAGAN SERVICE DATE: 03/20/17-1302 EXAM TYPE: CAT - CT CHEST W IV CONTRAST EXAMINATION: CT CHEST WITH CONTRAST CLINICAL INFORMATION: Dyspnea. Leukocytosis. Lung mass. COMPARISON: Radiographs dated 03/20/2017 and 12/27/[address] from 02/27/2016 TECHNIQUE: Multidetector volumetric CT imaging of the chest was obtained after the administration of 67 mL of Optiray 320 intravenous contrast without immediate adverse reactions. Axial MIP volume rendering provided. Sagittal and coronal reformatted images were obtained. DLP: 181.7 mGy-cm FINDINGS: SENIOR COMMISSIONS ANALYST: Again seen is the right apical mass. Single lead subcutaneous defibrillator is present, terminating over the sternum. LUNGS: At the medial aspect of the right lung apex, there is a new 6.5 x 5.4 x 6.1 cm intermediate density (29 Hounsfield units) masslike opacity, occupying a bulla seen on the prior study. This is a large area of pleural attachment along the right aspect of the superior mediastinum and anterior chest wall at the right lung apex. No appreciable extension through the adjacent chest wall. There is severe bullous emphysema in both lungs. There is a new 0.5 x 0.4 cm spiculated nodule at the medial aspect of the left upper lobe on image 85/592 of series 5. A subtle linear 6 cm focus of scarring in the lateral aspect of the left upper lobe on image 20/74 of series 2 is unchanged. Central airways are clear. MEDIASTINUM: Calcific atherosclerosis is present in the thoracic aorta and coronary arteries. Heart is normal in size. Trace pericardial effusion. No adenopathy. PLEURA: As above, the right apical mass has a large area of pleural attachment. No pleural effusion. No pleural nodularity. AXILLA: No lymphadenopathy. UPPER ABDOMEN: Unremarkable. OSSEOUS STRUCTURES: Minimal multilevel degenerative disc disease is present in the thoracic spine . More moderate to severe focal degenerative disc disease is present at L2-L3. IMPRESSION: 1. A 6.5 intermediate density mass at the right lung apex. This is concerning for a primary bronchogenic carcinoma, though the absence of correlating findings on the prior comparisons indicates that this abnormality is relatively new. Loculated infection within a bulla is possible, though not favored. Recommend further evaluation with biopsy unless infection is strongly favored clinically in which case short interval imaging follow-up would be necessary. 2. Severe bullous emphysema. 3. New 0.5 cm spiculated nodule at the left lung apex. 4. No adenopathy. This critical result was discussed by telephone with PANCHITO Kwan at 1:53 PM on 03/20/2017 . DICTATED BY: SERGE FITZGERALD MD DATE/TIME DICTATED:03/20/171331 CREDIT REVIEW ANALYST:VAL DATE/TIME TRANSCRIBED:03/20/171331 CONFIDENTIAL, DO NOT COPY WITHOUT APPROPRIATE AUTHORIZATION. <Electronically signed in Other Vendor System> SIGNED BY: SERGE FITZGERALD MD 03/20/17 4491 Assessment/Plan Assessment/Plan Patient is a 51-year-old gentleman with a marked leukocytosis and a lung mass at the right apex which is heterogeneous and appears to be compressing the venous drainage of his right side. Unfortunately there has to be a high level of suspicion for this being a primary carcinoma with necrosis and possible superinfection. An infected bullous with purulence is also possibility and would account for the findings. After discussion with interventional radiology the plan for tomorrow will be for needle aspiration to get tissue for culture and for cytology. We want to avoid any degree of external drainage with concerns for development of a bronchopleural fistula. The patient with Dr. Martell and with the house staff and all are in agreement. Consult Acknowledgment - Thank you for your consult request.
[2017-03-21 16:59] VITALS: BP 90/56
--- NOTE | 2017-03-21 17:43 | Cons- Infect Disease ---
General Information and HPI Consulting Request Date of Consult: 03/21/17 Requested By: LUDMILA HERNANDEZ MD Reason for Consult: abx advice Source of Information: patient, primary team Exam Limitations: clinical condition History of Present Illness: 51-year-old male with cardiomyopathy s/p AICD placement, COPD, tobacco use, and HTN who presented to ED previous day with shortness of breath, fatigue, cough, and voice changes. He states feeling fatigued for about 1 month ago and coughing/SOB for 2 weeks. Cough was productive bringing up clear sputum. He started having changes in his voice about 1 week ago. He reports some weight loss 10 lbs over one year. He denies any sick contact. 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 He has no changes in his appetite. He has some low grade temperature last week. He has no changes in his bowel. He has no recent travels. He is not working at the moment due to his COPD. He is a current smoker. He drinks alcohol rarely. He denies any drug usage. PPD skin test performed one month ago according to the patient was negative. In the ED, blood work demonstrated an increase in WBC to 104,800. CXR demonstrated new right apical lung mass as compared to 12/27/2016. Follow up CT scan demonstrated 6.5 cm intermediate density mass at the right lung apex and new 0.5 cm spiculated nodule in the left lung apex. He was admitted for further evaluation. Thoracic consultation called. He currently denies fever/chills. Allergies/Medications Allergies: Coded Allergies: NO KNOWN ALLERGIES (06/06/13) Home Med List: Albuterol Sulfate (Proair Hfa) 90 MCG HFA.AER.AD 2 PUF INH Q4-6 PRN PRN SHORTNESS OF BREATH (Reported) Albuterol Sulfate 2.5 MG/3 ML (0.083 %) VIAL.NEB 1 Vial INH/VIOLETTE Q4P PRN SHORTNESS OF BREATH (Reported) Bupropion HCl (Bupropion HCl Sr) 200 MG TABLET.ER 1 TAB PO BID MENTAL HEALTH (Reported) Carvedilol 6.25 MG TABLET 1 TAB PO BID HEART (Reported) Fluticasone/Salmeterol (Advair 500-50 Diskus) 500 MCG-50 MCG/DOSE BLST.W.DEV 1 PUF INH BID BREATHING PROBLEMS (Reported) Sacubitril/Valsartan (Entresto 97 MG-103 MG Tablet) 97 MG-103 MG TABLET 1 TAB PO BID HEART (Reported) Sertraline HCl 50 MG TABLET 1 TAB PO DAILY MENTAL HEALTH (Reported) Current Medications: Current Medications Sig/Yuli Start time Last Medication Dose Route Stop Time Status Admin Albuterol Sulfate 3 ML TID 03/20 2200 AC 03/21 INH 1305 Azithromycin 500 MG 1830 03/20 1830 AC 03/21 Sodium Chloride 250 ML IV 1714 Budesonide/ 2 PUF BID 03/20 2200 AC 03/21 Formoterol Fumarate INH 0945 Bupropion HCl 200 MG BID 03/20 2200 AC 03/21 PO 0945 Carvedilol 6.25 MG BID 03/20 2200 AC 03/21 PO 0945 Ceftriaxone Sodium 2,000 MG 1800 03/20 1800 AC 03/21 IV 1714 Guaifenesin 600 MG Q12 03/21 1520 AC 03/21 PO 1714 Heparin Sodium 5,000 UNIT Q8 03/20 1456 AC 03/21 (Porcine) SC 03/22 0000 1356 Ipratropium [place] 2.5 ML TID 03/20 2200 AC 03/21 INH 1305 Patient Medication 1 ED .[facility]-MED ONE 03/21 1414 ID Teaching ED 03/21 1415 Sertraline HCl 50 MG DAILY 03/20 1459 AC 03/21 PO 0945 Past History Travel History Traveled to [place] past 21 day No Medical History Blood Transfusion Hx: No Neurological: NONE EENT: NONE Cardiovascular: cardiomyopathy, CHF, defibrillator Respiratory: bronchitis, COPD, emphysema Gastrointestinal: NONE Hepatic: NONE Renal: NONE Musculoskeletal: NONE Psychiatric: NONE Endocrine: NONE Blood Disorders: NONE 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 Psychosocial History Where Do You Live? Home Smoking Status: Current Everyday Smoker ETOH Use: occasional use Illicit Drug Use: denies illicit drug use Living Will? no Functional Ability ADLs Independent: dressing, eating, toileting, bathing. Ambulation: independent IADLs Independent: shopping, housework, finances, food prep, telephone, transportation , medication admin. Review of Systems Comments 12 points reviewed as noted, otherwise negative. Exam & Diagnostic Data Last 24 Hrs of Vital Signs/I&O Vital Signs Date Time Temp Pulse Resp B/P B/P Pulse O2 O2 Flow FiO2 Mean Ox Delivery Rate 03/21 1659 98.0 92 16 90/56 92 03/21 0945 90/54 03/21 0830 97.4 90 18 /54 93 Room Air 03/21 0820 95 Room Air 03/21 0800 Room Air 03/20 2200 97.8 97 20 92 Room Air 03/20 2135 97 9003/20 2046 Room Air Intake & Output 03/21 1600 03/21 0800 03/21 0000 Intake Total 720 100 100 Output Total Balance 720 100 100 Intake, Oral 720 100 100 Physical Exam Other Physical Findings: General Appearance: no apparent distress, alert, awake, comfortable Head: atraumatic, normal appearance Eyes: Bilateral: PERRL, EOMI. Ears, Nose, Throat: normal pharynx Respiratory: normal breath sounds, chest non-tender, no respiratory distress Cardiovascular: regular rate/rhythm, normal peripheral pulses Gastrointestinal: normal bowel sounds, soft, non-tender, no organomegaly Extremities: normal inspection, no edema Neurologic/Psych: awake, alert, oriented x 3 Skin: pale Last 24 Hours of Lab Results: Laboratory Tests 03/21 03/21 0819 0610 Chemistry Sodium (137 - 145 mmol/L) 138 Potassium (3.5 - 5.1 mmol/L) 3.7 Chloride (98 - 107 mmol/L) 99 Carbon Dioxide (22 - 30 mmol/L) 22 Anion Gap (5 - 16) 17 H BUN (9 - 20 mg/dL) 32 H Creatinine (0.7 - 1.2 mg/dL) 0.8 Estimated GFR (>60 ml/min) > 60 BUN/Creatinine Ratio (7 - 25 %) 40.0 H Hematology CBC w Diff MAN DIFF ORDERED WBC (4.8 - 10.8 /CUMM) 155.7 *H RBC (4.70 - 6.10 /CUMM) 3.57 L Hgb (14.0 - 18.0 G/DL) 10.7 L Hct (42 - 52 %) 31.8 L MCV (80.0 - 94.0 FL) 89.2 MCH (27.0 - 31.0 PG) 29.9 RDW (11.5 - 14.5 %) 15.0 H Plt Count (130 - 400 /CUMM) 429 H MPV (7.4 - 10.4 FL) 9.3 Gran % (42.2 - 75.2 %) 95.9 H Lymphocytes % (20.5 - 51.1 %) 2.0 L Monocytes % (1.7 - 9.3 %) 2.1 Eosinophils % (0 - 5 %) 0 Basophils % (0.0 - 2.0 %) 0 L Absolute Granulocytes (1.4 - 6.5 /CUMM) 149.3 H Segmented Neutrophils (42.2 - 75.2 %) 82 H Band Neutrophils (0.0 - 5.0 %) 17 H Absolute Lymphocytes (1.2 - 3.4 /CUMM) 3.1 Lymphocytes (20.5 - 51.1 %) 1 L Absolute Monocytes (0.10 - 0.60 /CUMM) 3.3 H Absolute Eosinophils (0.0 - 0.7 /CUMM) 0 Absolute Basophils (0.0 - 0.2 /CUMM) 0 Platelet Estimate (ADEQUATE) ADEQUATE Normocytic RBCs VERIFIED Normochromic RBCs VERIFIED PUBS MCHC (33.0 - 37.0 G/DL) 33.5 Urines Urinalysis MOD H Urine Color (YEL,AMB,STR) YEL Urine Clarity (CLEAR) CLEAR Urine pH (5.0 - 8.0) 6.0 Ur Specific [place] (1.001 - 1.035) 1.025 Urine Protein (NEG,<30 MG/DL) TRACE H Urine Ketones (NEG) NEG Urine Nitrite (NEG) NEG Urine Bilirubin (NEG) NEG Urine Urobilinogen (0.1 - 1.0 EU/dl) 0.2 Ur Leukocyte Esterase (NEG) NEG Ur Microscopic SEDIMENT EXAMINED Urine RBC (0 - 5 /HPF) 15-25 H Urine WBC (0 - 2 /HPF) 1-3 H Ur Epithelial Cells (NONE,FEW) FEW Urine Bacteria (NEG/NONE) FEW H Hyaline Casts (0/LPF) RARE H Granular Casts (NONE /LPF) RARE H Urine Mucus (FEW,NONE) MOD H Micro UA Comment MORE INFO: H Urine Hemoglobin (NEG) MOD H Urine Glucose (N MG/DL) NEG Last 24 Hours of Nikolai Results: C #: [id number] ROSALINO: 03/21/17 STATUS: COMP RECD: 03/21/[address]: VALARIE HERMAN,DEVANTE SOURCE: URINE ROUT ENTR: 03/20/[address]: DAVID HERMAN,LUDMILA SPDESC: URIN CLEAN LINARI,GONZALEZ L ORDERED: SPN URINE AG, LEGIONELLA AG,U COMMENT: CLEAR X 2 Procedure Result > STREP PNEUMO URINARY ANTIGEN Final 03/21/17 STATE LAB FORMS FILED? N NEGATIVE FOR STREP PNEUMONIAE BACTERIAL AG, MAY BE BELOW DETECTION LIMIT. > LEGIONELLA URINARY ANTIGEN Final 03/21/17 STATE LAB FORMS FILED? N NEGATIVE FOR LEGIONELLA URINARY ANTIGEN, MAY BE BELOW DETECTION LIMIT. PEC #: [id number] ROSALINO: 03/20/17 STATUS: RES RECD: 03/21/[address]: TRACE HERMAN,ANDRE SOURCE: LOWER RESP ENTR: 03/20/1714[address] OTHR DR: DAVID HERMAN,LUDMILA SPDC: SPUTUM LINARI,GONZALEZ L ORDERED: LOWER RESPIRATO Procedure Result > GRAM STAIN Final 03/21/171415 WHITE BLOOD CELLS MANY SQUAMOUS CELLS FEW GRAM POSITIVE COCCI MANY GRAM NEGATIVE RODS MANY GRAM POSITIVE RODS MODERATE LOWER RESPIRATORY CULTURE - PENDING Diagnostic Data Recent Imaging Findings: CT chest: IMPRESSION: 1. A 6.5 intermediate density mass at the right lung apex. This is concerning for a primary bronchogenic carcinoma, though the absence of correlating findings on the prior comparisons indicates that this abnormality is relatively new. Loculated infection within a bulla is possible, though not favored. Recommend further evaluation with biopsy unless infection is strongly favored clinically in which case short interval imaging follow-up would be necessary. 2. Severe bullous emphysema. 3. New 0.5 cm spiculated nodule at the left lung apex. 4. No adenopathy. Assessment/Plan Assessment/Plan Impression: 51-year-old male with cardiomyopathy s/p AICD placement, COPD, tobacco use, and HTN who admitted previous day with: Lung mass; etiology of the lung mass to be determeined (tissue diagnosis); is unclear as it may be infectious or malignant. Small cell lung malignancy/lung abscess in the ddx Leukemoid reaction; WBC trending up Weight loss, fatigue, and low grade fever. Suggestion: 1. F/u sputum results to further guide antibiotic treatment; empiric CTx/ doxycycline started on admission. Trend CBC, BMP. ESR/CRP/procalcitonin level/ aspergillus antigen with am labs. 2. Tissue biopsy, as well bacterial, fungal and mycbacterial pathogens. 3. CT of the abd and pelvis r/o metastatic disease 4. F/u flow cytometry and cytogenetics (BCR-ABL, JAK2) results. Consult Acknowledgment - Thank you for your consult request.
[2017-03-22 00:17] VITALS: BP 90/64
--- NOTE | 2017-03-22 06:29 | PN- Housestaff ---
ANDRE WOODWARD 03/22/17 0629: Subjective Follow-up For: - shortness of breath - cough Tele-Events Since Last Visit: NSR, 82-92 bpm, no overnight events. Subjective: Pt comfortable. No complaints. He feels better compared to yesterday. Cough improved compared to yesterday. vitals stable overnight. Remained afebrile. Pt to taken down for a biopsy of the lung mass/abscess. Review of Systems Constitutional: Reports: see HPI. Objective Last 24 Hrs of Vital Signs/I&O Vital Signs Date Time Temp Pulse Resp B/P B/P Pulse O2 O2 Flow FiO2 Mean Ox Delivery Rate 03/22 0017 98.3 88 12 90/64 94 03/21 2110 94 96/62 03/21 1910 95 Room Air 03/21 1659 98.0 92 16 90/56 92 03/21 1600 96 Room Air 03/21 0945 90/54 03/21 0830 97.4 90 18 90/54 93 Room Air 03/21 0820 95 Room Air 03/21 0800 Room Air Intake & Output 03/22 0800 03/22 0000 03/21 1600 Intake Total 700 720 Output Total 250 Balance 450 720 Intake, IV 300 Intake, Oral 400 720 Number 0 Bowel Movements Output, Urine 250 Physical Exam General Appearance: No Acute Distress Other Physical Findings: General Exam: AAOx3, No acute distress, Skin: No rashes, no breakdown HEENT: PERRLA, EOMI Neck: Supple, No JVD No cervical lymphadenopathy CVS: Reg Rate, Normal S1,S2, No MGR Resp: Decreased air entry, expiratory wheezes. Abdomen: Soft, No tenderness, Normal Bowel Sounds Neuro: Normal Speech, Strength 5/5 b/l x 4 extremities, Sensation intact, CN III -XII NL, Reflexes 2+ Extremities: No cyanosis, pedal edema Current Medications: Current Medications Sig/Yuli Start time Last Medication Dose Route Stop Time Status Admin Albuterol Sulfate 3 ML TID 03/20 INH 0813 Azithromycin 500 MG 03/20 Sodium Chloride 250 ML IV 171 Budesonide/ 2 PUF BID 03/20 Formoterol Fumarate INH 2105 Bupropion HCl 200 MG BID 03/20 PO 210 Carvedilol 6.25 MG BID 03/20 2200 AC 03/21 PO 2110 Ceftriaxone Sodium 2,000 MG 1800 03/20 1800 AC 03/21 IV 1714 Guaifenesin 600 MG Q12 03/21 1520 AC 03/21 PO 1714 Heparin Sodium 5,000 UNIT Q8 03/20 1456 DC 03/21 (Porcine) SC 03/22 0000 2110 Ipratropium [place] 2.5 ML TID 03/20 2200 AC 03/22 INH 0814 Patient Medication 1 ED .STK-MED ONE 03/21 1414 MD Teaching ED 03/21 1415 Sertraline HCl 50 MG DAILY 03/20 1459 AC 03/21 PO 0945 Last 24 Hrs of Lab/Nikolai Results Last 24 Hrs of Labs/Mics: Laboratory Tests 03/22/17 0635: Anion Gap 13, Estimated GFR > 60, BUN/Creatinine Ratio 35.6 H, C-Reactive Prot, Quant Pending, C-React Prot High Sens > 15.0 H, PT 12.8 H, INR 1.22 H, CBC w Diff MAN DIFF ORDERED, WBC Pending, RBC Pending, Hgb Pending, Hct Pending, MCV Pending, MCH Pending, RDW Pending, Plt Count Pending, MPV Pending, Gran % Pending, Lymphocytes % Pending, Monocytes % Pending, Eosinophils % Pending, Basophils % Pending, Absolute Granulocytes Pending, Segmented Neutrophils Pending, Absolute Lymphocytes Pending, Absolute Monocytes Pending, Absolute Eosinophils Pending, Absolute Basophils Pending, PUBS MCHC Pending, ESR Westergren Pending Microbiology 03/22 0730 BODY FLUID: Fungal Culture - ORD 03/22 600 BODY FLUID: Body Fluid Culture - COLB 03/22 600 BODY FLUID: Gram Stain - COLB Assessment/Plan Assessment: Mr Tejada is a 51-year-old man with a [id number] smoking history, cardiomyopathy ( dx'ed 2016, s/p AICD), hypertension, chronic bronchitis/ emphysema(not on home oxygen). He is being evaluted for a chief concern of fatigue x 1 month , shortness of breath, fever, cough, voice change x 2 wks. The last 24 hours leukocytosis 104.8--> 155.7. Increased band neutrophils. Iron studies indicated iron 15, TIBC 215, ferritin 320 (indicating anemia of chronic disease), alkaline phosphatase 218, lactate dehydrogenase 1643, vitamin B12 greater than 1000. (Likely malignancy/myelodysplastic syndrome). Differential diagnoses: #1 lung mass (SLC ) #2 leukemoid reaction #3 lung abscess Below is the problem list and plan: #1 shortness of breath: Could be multifactorial. At this time, COPD, lung abscess, small cell lung cancer are in the differential. Primary lung cancer is usually associated with leukocytosis also. Considering the duration/acuity of changes infectious versus small cell lung cancer are to be considered. However, no paraneoplastic findings were seen. Elevated LDH, elevated vitamin B12, abnormal iron studies indicate hematological process. Myeloproliferative neoplasm/myelodysplastic syndrome is also in the differential. Flow cytometry to look for lymphoma, and cytogenetic studies for BCL ABR, Sin 2 mutation, cytogenetics for acute leukemia, 5 every deletion to be done. To a certain, the final diagnosis lung biopsy to be done-with cytology, Gram stain, culture to be done. Pro-calcitonin to delineate infection versus lung mass. #2 DVT prophylaxis-Lovenox #3 full code. Problem List: 1. Leukocytosis 2. Lung mass 3. Alcoholic intoxication Pain Ratin Pain Location: none Pain Goal: Pain 4 or less Pain Plan: tylenol prn Tomorrow's Labs & Rationales: cbc bep LUDMILA HERNANDEZ MD 03/22/17 0942: Attending MD Review Statement Attending Statement Attending MD Statement: examined this patient, discuss w/resident/PA/VALET ATTENDANT, agreed w/resident/PA/VALET ATTENDANT, reviewed EMR data (avail) Attending Assessment/Plan: 51M PMH smoker, COPD, ischemic cardiomyopathy s/p AICD presenting with 1 month of fatigue, unintentional weight loss, mild fever, with worsening dyspnea and non-productive cough. Patient feels fine otherwise but has been sleeping ~14 hr /day. He feels chest congestion but is unable to bring up sputum, and has episodes of coughing fits where he feels unable to breathe. Initial labs show WBC 108,000, Hgb 10.4, platelets 430. Iron levels low, LDH 1643. Chest CT shows 6.5cm RUL mass and new 0.5cm left spiculated mass. Today, he is comfortable with no complaints other than fatigue and chest congestion. Vitals normal, exam reveals bilateral rhonchi, appears thin but not cachectic, normal cardiac and abdominal exam. WBC up to 155 today. AFebrile. 1. RUL lung mass 2. BLESSING lung mass 3. Leukocytosis with neutrophilia 4. Elevated LDH 5. Fatigue, weight loss 6. Ischemic cardiomyopathy 7. COPD Plan - Continue on telemetry for history of cardiomyopathy, relative hypotension, severely abnormal labs and imaging - Patient will go for lung mass biopsy today - Continue Ceftriaxone and Azithromycin - Send flow cytometry - ID, Pulmonary, and Oncology consults - Resend sputum culture and cytology - Blood cultures - Continue home medications - DVT PPx
--- NOTE | 2017-03-22 07:27 | PN- Student ---
Subjective Subjective: Patient slept well overnight. Today, he is doing well, but still notes shortness of breath when ambulating. Continues to have cough with clear sputum production. Denies shortness of breath at rest. Current Medications Sig/Yuli Start time Last Medication Dose Route Stop Time Status Admin Albuterol Sulfate 3 ML TID 03/20 2200 AC 03/22 INH 0813 Azithromycin 500 MG 1830 03/20 1830 AC 03/21 Sodium Chloride 250 ML IV 1714 Budesonide/ 2 PUF BID 03/20 2200 AC 03/22 Formoterol Fumarate INH 0935 Bupropion HCl 200 MG BID 03/20 2200 AC 03/22 PO 0936 Carvedilol 6.25 MG BID 03/20 2200 AC 03/22 PO 0935 Ceftriaxone Sodium 2,000 MG 1800 03/20 1800 AC 03/21 IV 1714 Guaifenesin 600 MG Q12 03/21 1520 AC 03/22 PO 0935 Heparin Sodium 5,000 UNIT Q8 03/20 1456 DC 03/21 (Porcine) SC 03/22 0000 2110 Ipratropium [place] 2.5 ML TID 03/20 2200 AC 03/22 INH 0814 Patient Medication 1 ED .STK-MED ONE 03/21 1414 DC Teaching ED 03/21 1415 Sertraline HCl 50 MG DAILY 03/20 1459 03/22 PO 0936 Objective Objective: Vital Signs Date Time Temp Pulse Resp B/P B/P Pulse O2 O2 Flow FiO2 Mean Ox Delivery Rate 03/22 0935 97.9 103 18 100/64 03/22 0816 98 Room Air Room Air 03/22 0800 98 Room Air Room Air 03/22 0752 97.9 103 18 100/64 93 Room Air 03/22 0017 98.3 88 12 90/64 94 03/21 2110 94 96/62 03/21 1910 95 Room Air 03/21 1659 98.0 92 16 90/56 92 03/21 1600 96 Room Air Intake & Output 03/22 1600 03/22 0800 03/22 0000 Intake Total 700 Output Total 250 Balance 450 Intake, IV 300 Intake, Oral 400 Number 0 Bowel Movements Output, Urine 250 Tele-events overnight: -Normal sinus rhythm, HR 82-92 bpm, no overnight events. Physical Exam: General: alert and oriented, cooperative, in no acute distress Heart: S1, S2, no murmurs, rubs, or gallops Lungs: decreased air entry throughout, wheezes heard on expiration Abdomen: soft, non-tender, no masses, bowel sounds present Extremities: no clubbing, cyanosis, or edema Results Results: Laboratory Tests 03/22/17 0635: Anion Gap 13, Estimated GFR > 60, BUN/Creatinine Ratio 35.6 H, C-Reactive Prot, Quant 5.0 H, C-React Prot High Sens > 15.0 H, PT 12.8 H, INR 1.22 H, CBC w Diff MAN DIFF ORDERED, RBC 3.72 L, MCV 87.8, MCH 29.4, RDW 14.9 H, MPV 9.5, Gran % 84.4 H, Lymphocytes % 4.1 L, Monocytes % 7.1, Eosinophils % 0.2, Basophils % 4.2 H, Absolute Granulocytes 77.8 H, Segmented Neutrophils 90 H, Band Neutrophils 3, Absolute Lymphocytes 3.7 H, Lymphocytes 3 L, Monocytes 4, Absolute Monocytes 6.6 H, Absolute Eosinophils 0.2, Absolute Basophils 3.9, Platelet Estimate ADEQUATE, Polychromasia 1+, Anisocytosis 1+, PUBS MCHC 33.4, ESR Westergren Pending 03/22/17 0600: Ref Lab Test Result Pending 03/21/17 0819: Urinalysis MOD H, Urine Color YEL, Urine Clarity CLEAR, Urine pH 6.0, Ur Specific [place] 1.025, Urine Protein TRACE H, Urine Ketones NEG, Urine Nitrite NEG, Urine Bilirubin NEG, Urine Urobilinogen 0.2, Ur Leukocyte Esterase NEG, Ur Microscopic SEDIMENT EXAMINED, Urine RBC 15-25 H, Urine WBC 1-3 H, Ur Epithelial Cells FEW, Urine Bacteria FEW H, Hyaline Casts RARE H, Granular Casts RARE H, Urine Mucus MOD H, Micro UA Comment MORE INFO: H, Urine Hemoglobin MOD H, Urine Glucose NEG 03/21/17 0610: Anion Gap 17 H, Estimated GFR > 60, BUN/Creatinine Ratio 40.0 H, CBC w Diff MAN DIFF ORDERED, RBC 3.57 L, MCV 89.2, MCH 29.9, RDW 15.0 H, MPV 9.3, Gran % 95.9 H, Lymphocytes % 2.0 L, Monocytes % 2.1, Eosinophils % 0, Basophils % 0 L, Absolute Granulocytes 149.3 H, Segmented Neutrophils 82 H, Band Neutrophils 17 H, Absolute Lymphocytes 3.1, Lymphocytes 1 L, Absolute Monocytes 3.3 H, Absolute Eosinophils 0, Absolute Basophils 0, Platelet Estimate ADEQUATE, Normocytic RBCs VERIFIED, Normochromic RBCs VERIFIED, PUBS MCHC 33.5 03/20/17 1438: Lactic Acid Cancelled 03/20/17 1150: Anion Gap 15, Estimated GFR > 60, BUN/Creatinine Ratio 36.3 H, Glucose 96, Lactic Acid 1.6, Calcium 8.7, Iron 15 L, TIBC 215 L, Ferritin 320.0, Total Bilirubin 0.6, GGT 29, AST 11 L, ALT 19 L, Alkaline Phosphatase 218 H, Lactate Dehydrogenase 1643 H, Troponin I < 0.01, Iia-U-Gkooqriftaz Pept 643 H, Total Protein 6.6, Albumin 3.4 L, Globulin 3.2, Albumin/Globulin Ratio 1.1, Amylase 38, Lipase 16 L, Vitamin B12 > 1000 H, CBC w Diff MAN DIFF ORDERED, RBC 3.51 L, MCV 87.1, MCH 29.3, RDW 15.4 H, MPV 8.6, Gran % 97.7 H, Lymphocytes % 2.0 L, Monocytes % 0.2 L, Eosinophils % 0.1, Basophils % 0 L, Absolute Granulocytes 102.4 H, Segmented Neutrophils 88 H, Band Neutrophils 10 H, Absolute Lymphocytes 2.1, Monocytes 1 L, Absolute Monocytes 0.2, Eosinophils 1, Absolute Eosinophils 0.2, Absolute Basophils 0, Platelet Estimate VERIFIED BY SMEAR, Anisocytosis 1+, PUBS MCHC 33.7 Microbiology 03/22 1000 LOWER RESP: Respiratory Culture - COLB 03/22 1000 LOWER RESP: Gram Stain - COLB 03/22 0730 BODY FLUID: Fungal Culture - ORD 03/22 06 BODY FLUID: Body Fluid Culture - COLB 03/22 06 BODY FLUID: Gram Stain - COLB 03/21 0819 URINE ROUT: Legionella Antigen - COMP 03/21 819 URINE ROUT: Streptococcus pneumoniae Antigen (M - COMP 03/21 819 URINE ROUT: Urine Culture - RES 03/20 1635 BLOOD: Blood Culture - RES 03/20 1630 BLOOD: Blood Culture - RES 03/20 1150 LOWER RESP: Respiratory Culture - RES 03/20 1150 LOWER RESP: Gram Stain - RES 03/20 1150 LOWER RESP: Routine Culture - RECD Imaging: -CT scan of abdomen shows mass at right lung apex and severe bullous emphysema. Assessment/Plan Assessment: This is a 51 year-old male smoker with PMH of cardiomyopathy (s/p AICD in 2016), HTN, COPD, emphysema, chronic bronchitis, who presented to the ED 2 days ago with increased shortness of breath, fatigue, and cough productive of clear sputum x2 weeks, and a change in his voice x1 week. In ED, patient had leukocytosis of 104,800 and a new right apical lung mass was noted on x-ray and CT scan. Leukocytosis increased to 155,700 the following day, and today has trended down to 92,100. Intial sputum gram stain shows many WBCs, gram-positive cocci, gram-negative rods, and gram-positive rods. Patient has been stable, but continues to note cough and shortness of breath when ambulating. CT-guided lung biopsy will be performed today to help determine infectious etiology vs. malignancy (such as small cell lung cancer) of right apical lung mass. Plan: For shortness of breath: -Patient NPO for CT-guided lung biopsy today. -Blood culture, sputum culture and gram stain pending. -PT/PTT ordered STAT this morning for CT-guided lung biopsy procedure. -Follow-up with lab work: CBC, BMP, ESR. -CT scan of abdomen and pelvis recommended to rule out metastatic disease. -Follow pulmonology, infectious disease, and oncology recommendations. For hoarse voice: -ENT consulted. Suspect damage to vocal cords due to right apical lung mass. Recommended follow-up in office in 2-3 weeks. -PT/PTT ordered STAT this morning -Follow-up with lab work: CBC, BMP, ESR -CT scan of abdomen recommended For hoarse voice: -ENT consulted. They recommend follow-up in office in 2-3 weeks. Suspect
--- NOTE | 2017-03-22 07:44 | PN- Pulmonary ---
Subjective HPI/Critical Care Issues: Patient has no new complaints. 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 No culture data available Objective Current Medications: Current Medications Sig/Yuli Start time Last Medication Dose Route Stop Time Status Admin Albuterol Sulfate 3 ML TID 03/20 2200 AC 03/21 INH 1910 Azithromycin 500 MG 1830 03/20 1830 AC 03/21 Sodium Chloride 250 ML IV 1714 Budesonide/ 2 PUF BID 03/20 2200 AC 03/21 Formoterol Fumarate INH 2105 Bupropion HCl 200 MG BID 03/20 2200 AC 03/21 PO 2107 Carvedilol 6.25 MG BID 03/20 2200 AC 03/21 PO 2110 Ceftriaxone Sodium 2,000 MG 1800 03/20 1800 AC 03/21 IV 1714 Guaifenesin 600 MG Q12 03/21 1520 AC 03/21 PO 1714 Heparin Sodium 5,000 UNIT Q8 03/20 1456 DC 03/21 (Porcine) SC 03/22 0000 2110 Ipratropium [place] 2.5 ML TID 03/20 2200 AC 03/21 INH 1910 Patient Medication 1 ED .STK-MED ONE 03/21 1414 DC Teaching ED 03/21 1415 Sertraline HCl 50 MG DAILY 03/20 1459 03/21 PO 0945 Vital Signs & I&O Last 24 Hrs of Vitals and I&O: Vital Signs Date Time Temp Pulse Resp B/P B/P Pulse O2 O2 Flow FiO2 Mean Ox Delivery Rate 03/22 0017 98.3 88 12 90/64 94 03/21 2110 94 96/62 03/21 1910 95 Room Air 03/21 1659 98.0 92 16 90/56 92 03/21 1600 96 Room Air 03/21 0945 90/54 03/21 0830 97.4 90 18 90/54 93 Room Air 03/21 0820 95 Room Air 03/21 0800 Room Air Intake & Output 03/22 0800 03/22 0000 03/21 1600 Intake Total 700 720 Output Total 250 Balance 450 720 Intake, IV 300 Intake, Oral 400 720 Number 0 Bowel Movements Output, Urine 250 Room air oxygen saturation 94% HEENT exam shows no cervical or clavicular adenopathy exam of his chest shows clear lung scott cardiac exam shows a regular S1 and S2 without murmurs Impression/Plan Impression/Plan Impression/Plan: 51-year-old with history of cardiomyopathy AICD severe bullous emphysema admitted with increasing shortness of breath cough and hoarseness and new right upper lobe mass lesion. This density corresponds to a large right upper lobe bulla. 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 This is been arranged for today. Patient will need PT PTT Recommendations: Assess sputum C&S and cytology. Obtain PT PTT in preparation for CT-guided aspiration and biopsy of right upper lobe mass.
[2017-03-22 07:52] VITALS: BP 100/64
[2017-03-22 08:01] LABS: HEMATOCRIT 32.7 % (42-52)
--- NOTE | 2017-03-22 08:04 | PN- Oncology ---
Subjective Subjective: He feels about the same. He still has a cough. He has no fever or chills. He denies any nausea or vomiting. He has no new pain. Review of Systems Constitutional: Denies: chills, fever, weakness. Cardiovascular: Denies: chest pain. Respiratory: Reports: cough, short of breath, sputum production, wheezing. Gastrointestinal: Denies: abdominal pain. Genitourinary: Denies: frequency. Skin: Denies: rash. Neurological/Psychological: Reports: anxiety. Denies: confusion. Hematologic/Endocrine: Denies: bruising, bleeding. Immunologic/Allergic: Denies: lymphadenopathy. All Other Systems: Reviewed and Negative Objective Vital Signs and I&Os Vital Signs Date Time Temp Pulse Resp B/P B/P Pulse O2 O2 Flow FiO2 Mean Ox Delivery Rate 03/22 0017 98.3 88 12 90/64 94 03/21 2110 94 96/62 03/21 1910 95 Room Air 03/21 1659 98.0 92 16 90/56 92 03/21 1600 96 Room Air 03/21 0945 90/54 03/21 0830 97.4 90 18 /54 93 Room Air 03/21 0820 95 Room Air 03/21 0800 Room Air Intake & Output 03/22 0800 03/22 0000 03/21 1600 03/21 0800 03/21 0000 03/20 1600 Intake Total 700 720 100 100 Output Total 250 Balance 450 720 100 100 Intake, IV 300 Intake, Oral 400 720 100 100 Number 0 Bowel Movements Output, Urine 250 Patient 54.431 kg Weight Physical Exam General Appearance: well developed/nourished, no apparent distress, comfortable Head: atraumatic Ears, Nose, Throat: normal pharynx Respiratory: chest non-tender, no respiratory distress, quiet respiration, decreased breath sounds (RUL), wheezing Cardiovascular: regular rate/rhythm Abdomen: normal bowel sounds, soft, non-tender Extremities: no edema Skin: intact Lymphatic: no anterior cervical pauline Current Medications: Current Medications Sig/Yuli Start time Last Medication Dose Route Stop Time Status Admin Albuterol Sulfate 3 ML TID 03/20 INH 1909 Azithromycin 500 MG 03/20 Sodium Chloride 250 ML IV 171 Budesonide/ 2 PUF BID 03/20 Formoterol Fumarate INH 2105 Bupropion HCl 200 MG BID 03/20 2200 AC 03/21 PO 2107 Carvedilol 6.25 MG BID 03/20 2200 AC 03/21 PO 2110 Ceftriaxone Sodium 2,000 MG 1800 03/20 1800 AC 03/21 IV 1714 Guaifenesin 600 MG Q12 03/21 1520 AC 03/21 PO 1714 Heparin Sodium 5,000 UNIT Q8 03/20 1456 DC 03/21 (Porcine) SC 03/22 0000 2110 Ipratropium [place] 2.5 ML TID 03/20 2200 AC 03/21 INH 1910 Patient Medication 1 ED .STK-MED ONE 03/21 1414 DC Teaching ED 03/21 1415 Sertraline HCl 50 MG DAILY 03/20 1459 AC 03/21 PO 0945 Results Last 24 Hours of Lab Results: Laboratory Tests 03/22 03/21 0635 0819 Chemistry Sodium Pending Potassium Pending Chloride Pending Carbon Dioxide Pending Anion Gap Pending BUN Pending Creatinine Pending BUN/Creatinine Ratio Pending C-React Prot High Sens Pending Coagulation PT Pending INR Pending Hematology CBC w Diff Pending WBC Pending RBC Pending Hgb Pending Hct Pending MCV Pending MCH Pending RDW Pending Plt Count Pending MPV Pending PUBS MCHC Pending ESR Westergren Pending Urines Urinalysis MOD H Urine Color (YEL,AMB,STR) YEL Urine Clarity (CLEAR) CLEAR Urine pH (5.0 - 8.0) 6.0 Ur Specific [place] (1.001 - 1.035) 1.025 Urine Protein (NEG,<30 MG/DL) TRACE H Urine Ketones (NEG) NEG Urine Nitrite (NEG) NEG Urine Bilirubin (NEG) NEG Urine Urobilinogen (0.1 - 1.0 EU/dl) 0.2 Ur Leukocyte Esterase (NEG) NEG Ur Microscopic SEDIMENT EXAMINED Urine RBC (0 - 5 /HPF) 15-25 H Urine WBC (0 - 2 /HPF) 1-3 H Ur Epithelial Cells (NONE,FEW) FEW Urine Bacteria (NEG/NONE) FEW H Hyaline Casts (0/LPF) RARE H Granular Casts (NONE /LPF) RARE H Urine Mucus (FEW,NONE) MOD H Micro UA Comment MORE INFO: H Urine Hemoglobin (NEG) MOD H Urine Glucose (N MG/DL) NEG Assessment/Plan Assessment/Recommendations: Mr. Tejada is a 51-year-old male with cardiomyopathy s/p AICD, HTN, and tobacco usage who presented to [facility] with fatigue, dyspnea, cough, and voice changes. He was noted to have leukocytosis of 104,800 and 6.5 cm right apical lung mass. Leukocytosis has increased to 155,000. Differential is still unremarkable with mostly left shift. Peripheral smear demonstrates increase segmental neutrophils and bands. Leukemoid reaction is the likely etiology for this finding. He also has a mildly increased platelet count. Given the persistent nature of the findings, flow cytometry and cytogenetic are reasonable to evaluate for a myeloproliferative disorder. These test are now pending. His lung mass is new compared to 2 months ago. He is tentatively planned to get biopsy today. Differentials includes infectious etiology vs malignant process such as small cell lung cancer. CT abdomen/pelvis is ordered and pending. PET may not be as useful in this setting. Pulmonary medicine and ID are following patient. Recommendations: 1. Follow up on biopsy of lung mass, include cultures of sample 2. Follow up cultures 3. Antibiotics as per ID 4. Follow up on flow cytometry and cytogenetics Please call [phone] with any questions. Problem List: 1. Leukocytosis 2. Lung mass
[2017-03-22 08:23] LABS: PT 12.8 SEC (9.4-12.5)
[2017-03-22 08:32] LABS: ABSOLUTE BASOPHIL COUNT 3.9 /CUMM (0.0-0.2); ABSOLUTE EOSINOPHIL COUNT 0.2 /CUMM (0.0-0.7); ABSOLUTE GRANULOCYTE CT 77.8 /CUMM (1.4-6.5); ABSOLUTE LYMPH COUNT 3.7 /CUMM (1.2-3.4); ABSOLUTE MONOCYTE COUNT 6.6 /CUMM (0.10-0.60); BASOPHIL % 4.2 % (0.0-2.0); EOSINOPHIL % 0.2 % (0-5); GRANULOCYTE % 84.4 % (42.2-75.2); MEAN CORPUSCULAR HGB 29.4 PG (27.0-31.0); MEAN CORPUSCULAR HGB CONC 33.4 G/DL (33.0-37.0); MEAN CORPUSCULAR VOLUME 87.8 FL (80.0-94.0); MEAN PLATELET VOLUME 9.5 FL (7.4-10.4); PLATELET COUNT 478 /CUMM (130-400); RBC DISTRIBUTION WIDTH 14.9 % (11.5-14.5); RED BLOOD CELL CT 3.72 /CUMM (4.70-6.10)
[2017-03-22 08:51] LABS: WHITE BLOOD CELL COUNT 92.1 /CUMM (4.8-10.8)
--- NOTE | 2017-03-22 14:00 | NUR ---
PATIENT TO IR AND BACK S/P RIGHT UPPER LUNG MASS BIOPSY. PATIENT ALERT AND ORIENTATED X3. VSS. RIGHT POSTERIO CHEST HAS SMALL BANDAID CLEAN DRY AND INTACT. WILL FOLLOW PLAN OF CARE.
--- NOTE | 2017-03-22 14:14 | CT SCAN REPORT ---
EXAMINATION: CT ABDOMEN AND PELVIS WITHOUT CONTRAST CLINICAL INFORMATION: 51-year-old male with dyspnea, leukocytosis, lung mass. Elevated alkaline phosphatase. COMPARISON: CT of the chest done on 03/20/[address] of the abdomen and pelvis done on 06/06/2013. TECHNIQUE: Multidetector volumetric imaging was performed from the superior aspect of the liver through the pubic symphysis. Sagittal and coronal reformatted images were obtained on the technologist's workstation. DLP: 253.70 mGy-cm FINDINGS: Technically limited study due to lack of IV contrast. LUNG BASES: Extensive emphysematous disease is noted within the visualized lung bases. Interval development of nonspecific linear airspace disease is noted at right lower lobe of the lung, likely represents hypoventilatory, atelectatic changes. Note is also made of interval development of trace amount of right-sided non drainable pleural effusion. Previously documented trace amount of pericardial effusion is also noted, unchanged. LIVER, GALLBLADDER, AND BILIARY TREE: No discrete intrahepatic focal abnormality is present on these nonenhanced images. There is no intrahepatic or extrahepatic biliary ductal dilatation present. The gallbladder appears decompressed. PANCREAS: Grossly appears unremarkable on these nonenhanced images. SPLEEN: Unremarkable. ADRENAL GLANDS: Unremarkable. KIDNEYS AND URETERS: 0.9 cm focal hypodensity is noted along the superior anterior, lateral cortex of the right kidney, may represent a hyperdense cyst, otherwise both kidneys are unremarkable. BLADDER: Unremarkable. GASTROINTESTINAL TRACT: The small and large bowel are unremarkable. The appendix is nonvisualized. ABDOMINAL WALL: No significant hernia is appreciated. LYMPH NODES: No pathologically enlarged retroperitoneal, mesenteric, pelvic and/or groin lymphadenopathy present. VASCULAR: Diffuse atherosclerotic disease is noted within the aorta and its branches without aneurysm formation. PELVIC VISCERA: The prostate is heterogeneous, shows multifocal scattered calcifications, measures approximately 4.7 x 3.8 cm. OTHER FINDINGS: Small amount of free fluid is noted within the upper abdomen. A moderate amount of free fluid is noted within the dependent part of the pelvis. OSSEOUS STRUCTURES: Moderate mid lumbar levoscoliosis and superimposed moderate degenerative spondylosis-related changes are noted at L1-L2 level and mild to moderate spondylosis at L5-S1. No suspicious lytic or sclerotic abnormality is present. IMPRESSION: 1. Technically limited study due to lack of intravenous contrast. 2. No discrete intrahepatic focal abnormality is identified on these nonenhanced images. 3. No CT evidence of any biliary obstruction is present. 4. Small amount of free fluid within the upper abdomen and moderate amount of free fluid within the pelvis, of indeterminate etiology. 5. Approximately 1 cm hyperdense nodule is noted at superior anterolateral cortex of the right kidney, may represent hyperdense cyst. 6. Interval development of trace amount of right-sided pleural effusion since the prior CT of the chest done on 03/20/2017. 7. Extensive diffuse atherosclerotic disease throughout the aorta and its branches. 8. Scoliotic and multilevel degenerative spondylosis.
--- NOTE | 2017-03-22 14:14 | PN- Infect Dx ---
Subjective Subjective: Feeling better; tolearated CT guided bx very well. Cough improved. Good appetite. Review of Systems Comments: 12 points reviewed per HPI. Objective Last 24 Hrs of Vital Signs/I&O Vital Signs Date Time Temp Pulse Resp B/P B/P Pulse O2 O2 Flow FiO2 Mean Ox Delivery Rate 03/22 0935 97.9 103 18 100/64 03/22 0816 98 Room Air Room Air 03/22 0800 98 Room Air Room Air 03/22 0752 97.9 103 18 100/64 93 Room Air 03/22 0017 98.3 88 12 90/64 94 03/21 2110 94 96/62 03/21 1910 95 Room Air 03/21 1659 98.0 92 16 90/56 92 03/21 1600 96 Room Air Intake & Output 03/22 1600 03/22 0800 03/22 0000 Intake Total 700 Output Total 250 Balance 450 Intake, IV 300 Intake, Oral 400 Number 0 Bowel Movements Output, Urine 250 Physical Exam Other Physical Findings: General Appearance: no apparent distress, comfortable Head: atraumatic, normal appearance Eyes: Bilateral: PERRL, EOMI. Ears, Nose, Throat: normal pharynx Respiratory: normal breath sounds, chest non-tender, no respiratory distress, less wheezing Cardiovascular: regular rate/rhythm, normal peripheral pulses Gastrointestinal: normal bowel sounds, soft, non-tender, no organomegaly Extremities: normal inspection, no edema Neurologic/Psych: awake, alert, oriented x 3 Skin: pale Results Last 24 Hours of Lab Results: Laboratory Tests 03/22 03/22 0635 0600 Chemistry Sodium (137 - 145 mmol/L) 138 Potassium (3.5 - 5.1 mmol/L) 4.4 Chloride (98 - 107 mmol/L) 99 Carbon Dioxide (22 - 30 mmol/L) 26 Anion Gap (5 - 16) 13 BUN (9 - 20 mg/dL) 32 H Creatinine (0.7 - 1.2 mg/dL) 0.9 Estimated GFR (>60 ml/min) > 60 BUN/Creatinine Ratio (7 - 25 %) 35.6 H C-Reactive Prot, Quant (<1.0 mg/dL) 5.0 H C-React Prot High Sens (1.0 - 3.0 mg/L) > 15.0 H Coagulation PT (9.4 - 12.5 SEC) 12.8 H INR (0.90 - 1.17) 1.22 H Hematology CBC w Diff MAN DIFF ORDERED WBC (4.8 - 10.8 /CUMM) 92.1 *H RBC (4.70 - 6.10 /CUMM) 3.72 L Hgb (14.0 - 18.0 G/DL) 10.9 L Hct (42 - 52 %) 32.7 L MCV (80.0 - 94.0 FL) 87.8 MCH (27.0 - 31.0 PG) 29.4 RDW (11.5 - 14.5 %) 14.9 H Plt Count (130 - 400 /CUMM) 478 H MPV (7.4 - 10.4 FL) 9.5 Gran % (42.2 - 75.2 %) 84.4 H Lymphocytes % (20.5 - 51.1 %) 4.1 L Monocytes % (1.7 - 9.3 %) 7.1 Eosinophils % (0 - 5 %) 0.2 Basophils % (0.0 - 2.0 %) 4.2 H Absolute Granulocytes (1.4 - 6.5 /CUMM) 77.8 H Segmented Neutrophils (42.2 - 75.2 %) 90 H Band Neutrophils (0.0 - 5.0 %) 3 Absolute Lymphocytes (1.2 - 3.4 /CUMM) 3.7 H Lymphocytes (20.5 - 51.1 %) 3 L Monocytes (1.7 - 9.3 %) 4 Absolute Monocytes (0.10 - 0.60 /CUMM) 6.6 H Absolute Eosinophils (0.0 - 0.7 /CUMM) 0.2 Absolute Basophils (0.0 - 0.2 /CUMM) 3.9 Platelet Estimate (ADEQUATE) ADEQUATE Polychromasia 1+ Anisocytosis 1+ PUBS MCHC (33.0 - 37.0 G/DL) 33.4 ESR Westergren (0 - 10 MM) 35 H Miscellaneous Ref Lab Test Result Pending Last 24 Hours of Nikolai Results: SPEC #: [id number] ROSALINO: 03/20/17-1150 STATUS: RES RECD: 03/21/17-1313 [facility] DR: TRACE HERMAN,ANDRE SOURCE: LOWER RESP ENTR: 03/20/17-[address]: APERGIS MD,YIANNIS SPDESC: SPUTUM LINARI,GONZALEZ L ORDERED: LOWER RESPIRATO Procedure Result > GRAM STAIN Final 03/21/17-1415 WHITE BLOOD CELLS MANY SQUAMOUS CELLS FEW GRAM POSITIVE COCCI MANY GRAM NEGATIVE RODS MANY GRAM POSITIVE RODS MODERATE > LOWER RESPIRATORY CULTURE Preliminary 03/22/17-0922 Mixed gordon after 1 day Recent Imaging Studies: CT chest 03/20/17 IMPRESSION: 1. A 6.5 intermediate density mass at the right lung apex. This is concerning for a primary bronchogenic carcinoma, though the absence of correlating findings on the prior comparisons indicates that this abnormality is relatively new. Loculated infection within a bulla is possible, though not favored. Recommend further evaluation with biopsy unless infection is strongly favored clinically in which case short interval imaging follow-up would be necessary. 2. Severe bullous emphysema. 3. New 0.5 cm spiculated nodule at the left lung apex. 4. No adenopathy. This critical result was discussed by telephone with PANCHITO Kwan at 1:53 PM on 03/20/2017 . DICTATED BY: SERGE FITZGERALD MD DATE/TIME DICTATED:03/20/171331 [employer]LE B[employer] DRIVER:VAL DATE/TIME TRANSCRIBED:03/20/171331 Assessment/Plan Impression: 51-year-old male with cardiomyopathy s/p AICD placement, COPD, tobacco use, and HTN who admitted previous day with: Lung mass; etiology of the lung mass to be determined (S/P CT guided bx and cx) COPD exacerbation Leukemoid reaction; myeloproliferative disorder work up; WBC trending down Weight loss, fatigue, and low grade fever Partial SVC sd Right vocal cord paralysis Suggestion: 1. F/u sputum results to further guide antibiotic treatment; continue empiric CTX/doxycycline for 7 d; sputum cx from 03/20 preliminary mixed gordon. 2. Trend CBC, BMP. 3. F/U tissue biopsy results, as well as bacterial, fungal and mycbacterial culture results. 4. F/u flow cytometry and cytogenetics (BCR-ABL, JAK2) results.
--- NOTE | 2017-03-22 14:42 | RADIOLOGY REPORT ---
EXAMINATION:\H\ \N\XR CHEST CLINICAL INFORMATION: Status post CT-guided lung biopsy. COMPARISON: CT-guided lung biopsy done earlier today. TECHNIQUE: AP view of the chest was obtained in semierect, 80 degrees position. FINDINGS: Previously documented, clinically known large right apical lung mass is reidentified. There is no evidence of any right-sided pneumothorax identified. The left lung field is clear. Subcutaneous defibrillator projecting over the sternum appears intact. Cardiomediastinal silhouette is otherwise unremarkable. IMPRESSION: Status post CT-guided right upper lobar lung mass biopsy showing no evidence of any pneumothorax.
--- NOTE | 2017-03-22 16:10 | CT SCAN REPORT ---
PROCEDURE: CT GUIDED LUNG BIOPSY CLINICAL HISTORY: This patient is a 51 years old Male with right upper lobe lung mass, who presents to interventional radiology for core biopsy. PROCEDURE: 1. Limited CT of the chest. 2. CT-guided core needle biopsy of a right-sided lung mass. PHYSICIANS: Dr. Dunia Brian (attending). MONITORING: Continuous blood pressure, pulse oximetry as well as heartrate monitoring was performed by an independent registered nurse. Conscious sedation was not necessary or requested. MEDICATIONS: 10 mL of 1% lidocaine SQ. COMPLICATIONS: None. ESTIMATED BLOOD LOSS: <5 mL. SPECIMENS: Two 18 gauge core specimens were obtained, appropriately labeled and submitted for analysis. TOTAL DLP: 248.53 mGy-cm. PROCEDURE NOTE: Informed consent was obtained from the patient prior to the procedure. During this process, the procedure and potential alternatives were explained along with the intended outcome and benefits. The risks of the procedure, including the possibility of an unsuccessful procedure, as well as the risk of not doing the procedure, were discussed. The patient was given the opportunity to ask questions regarding the procedure and appeared competent to make decisions. A signed consent form documenting this discussion was placed in the medical record. A time-out procedure was performed. SITE MARKING: As part of the preprocedure verification policy, a site marking procedure was initiated. Due to the nature the procedure, the insertion site could not be predetermined thus invoking the policy of exemption to site laterality and marking. Insertion site marking was performed in the procedure room in conjunction with imaging confirmation. A localizing CT scan of the chest was performed. A suitable access site was chosen. The skin was sterilely prepped and draped in usual fashion. The skin and subcutaneous tissues were then anesthetized with 1% lidocaine. Anesthesia was carried down to the pleural surface. Using CT guidance, a 17-gauge introducer needle was advanced just proximal to the lesion. CT scan confirmed adequate positioning of the introducer needle. Through this a 18-gauge Achieve core biopsy needle device was introduced into the lesion. A total of 2 passes were made. The specimens were sent to histology for evaluation. The specimens were marked appropriately before leaving the laboratory. Final pathologic interpretation is pending. The introducer needle was removed. Limited CT scan was obtained which showed no evidence of complication. A sterile dressing was applied. The patient tolerated the procedure well and was transferred to recovery in stable condition. A chest radiograph obtained 1 hour after the biopsy demonstrated no evidence of pneumothorax. FINDINGS: Limited CT of the chest demonstrated right lung mass, with successful CT-guided core needle biopsy. IMPRESSION: Successful CT-guided right lung biopsy. PLAN: The patient was stable after the procedure and was transferred to the interventional recovery area for a period of observation. The patient will be transferred to the floor.
[2017-03-22 16:44] VITALS: BP 98/62
--- NOTE | 2017-03-22 20:29 | RADIOLOGY REPORT ---
EXAMINATION: CHEST 1 VIEW CLINICAL INFORMATION: Shortness of breath. Lung biopsy. COMPARISON: Same day chest radiograph obtained at 1306 hours. TECHNIQUE: An AP view of the chest was obtained at 2002 hours. FINDINGS: The cardiac silhouette is not enlarged. The mediastinal and hilar contours are unremarkable. There are neither pleural effusions nor pneumothoraces. There is a stable rounded mass within the right apex. The lungs are hyperinflated. The osseous structures are unremarkable. IMPRESSION: Stable right apical mass. No discernible pneumothorax.
[2017-03-23 00:46] VITALS: BP 98/60
[2017-03-23 08:00] VITALS: BP 98/60
[2017-03-23 08:09] LABS: ABSOLUTE BASOPHIL COUNT 0.2 /CUMM (0.0-0.2); ABSOLUTE EOSINOPHIL COUNT 0.1 /CUMM (0.0-0.7); ABSOLUTE GRANULOCYTE CT 85.5 /CUMM (1.4-6.5); ABSOLUTE LYMPH COUNT 3.5 /CUMM (1.2-3.4); ABSOLUTE MONOCYTE COUNT 5.6 /CUMM (0.10-0.60); BASOPHIL % 0.2 % (0.0-2.0); EOSINOPHIL % 0.1 % (0-5); GRANULOCYTE % 90.1 % (42.2-75.2); HEMATOCRIT 30.9 % (42-52); MEAN CORPUSCULAR HGB CONC 34.6 G/DL (33.0-37.0); MEAN CORPUSCULAR VOLUME 86.6 FL (80.0-94.0); MEAN PLATELET VOLUME 9.2 FL (7.4-10.4); PLATELET COUNT 484 /CUMM (130-400); RBC DISTRIBUTION WIDTH 14.9 % (11.5-14.5); RED BLOOD CELL CT 3.57 /CUMM (4.70-6.10)
[2017-03-23 08:24] LABS: WHITE BLOOD CELL COUNT 94.9 /CUMM (4.8-10.8)
--- NOTE | 2017-03-23 09:10 | PN- Housestaff ---
ANDRE WOODWARD 03/23/17 0910: Subjective Follow-up For: Pneumonia Complaints: no complaints Tele-Events Since Last Visit: Normal sinus rhythm, tachycardia, heart rate 95-120. Subjective: Vitals stable, Pt did not have any complaints. No shortness of breath, cough improved. Review of Systems Constitutional: Reports: see HPI. Objective Last 24 Hrs of Vital Signs/I&O Vital Signs Date Time Temp Pulse Resp B/P B/P Pulse O2 O2 Flow FiO2 Mean Ox Delivery Rate 03/23 0914 98.8 94 16 98/60 03/23 0800 98 Room Air Room Air 03/23 0800 98.0 98 16 98/60 97 Room Air 03/23 0753 97 Room Air Room Air 03/23 0046 98.8 94 16 98/60 96 Room Air 03/23 0000 97 Room Air 03/22 2127 112 114/72 03/22 1925 98 Room Air 03/22 1644 99.0 100 16 98/62 94 Room Air 03/22 1600 98 Room Air Room Air Intake & Output 03/23 1600 03/23 0800 03/23 0000 Intake Total 360 600 400 Output Total Balance 360 600 400 Intake, Oral 360 600 400 Physical Exam General Appearance: No Acute Distress Other Physical Findings: General Exam: AAOx3, No acute distress, Skin: No rashes, no breakdown HEENT: PERRLA, EOMI Neck: Supple, No JVD No cervical lymphadenopathy CVS: Reg Rate, Normal S1,S2, No MGR Resp: Normal air entry, expiratory wheezes. Abdomen: Soft, No tenderness, Normal Bowel Sounds Neuro: Normal Speech, Strength 5/5 b/l x 4 extremities, Sensation intact, CN III -XII NL, Reflexes 2+ Extremities: No cyanosis, pedal edema Current Medications: Current Medications Sig/Yuli Start time Last Medication Dose Route Stop Time Status Admin Albuterol Sulfate 3 ML TID 03/20 INH 1343 Azithromycin 500 MG 18303/20 183 DC 03/21 Sodium Chloride 250 ML IV 1714 Budesonide/ 2 PUF BID 03/20 Formoterol Fumarate INH 0914 Bupropion HCl 200 MG BID 03/20 2200 AC 03/23 PO 0914 Carvedilol 6.25 MG BID 03/20 PO 0914 Ceftriaxone Sodium 2,000 MG 1800 03/20 1800 AC 03/22 IV 1805 Doxycycline Hyclate 100 MG BID 03/22 2200 AC 03/23 PO 0914 Guaifenesin 600 MG Q12 03/21 1520 AC 03/23 PO 0914 Heparin Sodium 5,000 UNIT Q8 03/22 2200 AC 03/23 (Porcine) SC 1338 Ipratropium [place] 2.5 ML TID 03/20 2200 AC 03/23 INH 1343 Sertraline HCl 50 MG DAILY 03/20 1459 AC 03/23 PO 0914 Last 24 Hrs of Lab/Nikolai Results Last 24 Hrs of Labs/Mics: Laboratory Tests 03/23/17 0620: CBC w Diff MAN DIFF ORDERED, RBC 3.57 L, MCV 86.6, MCH 30.0, RDW 14.9 H, MPV 9.2, Gran % 90.1 H, Lymphocytes % 3.7 L, Monocytes % 5.9, Eosinophils % 0.1, Basophils % 0.2, Absolute Granulocytes 85.5 H, Segmented Neutrophils 84 H, Band Neutrophils 8 H, Absolute Lymphocytes 3.5 H, Lymphocytes 5 L, Monocytes 3, Absolute Monocytes 5.6 H, Absolute Eosinophils 0.1, Absolute Basophils 0.2, Platelet Estimate VERIFIED BY SMEAR, Polychromasia 1+, Anisocytosis 1+, PUBS MCHC 34.6 03/23/17 0615: Anion Gap 16, Estimated GFR > 60, BUN/Creatinine Ratio 30.0 H, Uric Acid 4.5, Phosphorus 4.1 Assessment/Plan Assessment: Mr Tejada is a 51-year-old man with a [id number] smoking history, cardiomyopathy ( dx'ed 2016, s/p AICD), hypertension, chronic bronchitis/ emphysema(not on home oxygen). He is being evaluted for a chief concern of fatigue x 1 month , shortness of breath, fever, cough, voice change x 2 wks. The last 24 hours leukocytosis 104.8--> 155.7. Increased band neutrophils. Iron studies indicated iron 15, TIBC 215, ferritin 320 (indicating anemia of chronic disease), alkaline phosphatase 218, lactate dehydrogenase 1643, vitamin B12 greater than 1000. (Likely malignancy/myelodysplastic syndrome). Differential diagnoses: #1 lung mass (SLC ) #2 leukemoid reaction #3 lung abscess Below is the problem list and plan: #1 shortness of breath: Could be multifactorial. At this time, COPD, lung abscess, small cell lung cancer are in the differential. Primary lung cancer is usually associated with leukocytosis also. Infectious cause is highly likely. Considering the duration/acuity of changes infectious versus small cell lung cancer are to be considered. However, no paraneoplastic findings were seen. Myeloproliferative neoplasm/myelodysplastic syndrome is also in the differential. Flow cytometry to look for lymphoma, and cytogenetic studies for BCL ABR, Sin 2 mutation, cytogenetics for acute leukemia, 5 every deletion to be done. Await results from lung biopsy- cytology, Gram stain, culture to be done. Pro-calcitonin to delineate infection versus lung mass. Continue antibiotics- ceftriaxone and doxycycline to cover for streptococcal and possible staph. #2 DVT prophylaxis-Lovenox #3 full code. Problem List: 1. Leukocytosis Pain Ratin Pain Location: None Pain Goal: Pain 4 or less Pain Plan: Tylenol when necessary Tomorrow's Labs & Rationales: C BC Basic electrolyte panel VANDANA HERMAN,[facility] 03/23/17 1515: Attending MD Review Statement Attending Statement Attending MD Statement: examined this patient, discuss w/resident/PA/DEPUTY JUVENILE OFFICER, agreed w/resident/PA/DEPUTY JUVENILE OFFICER, reviewed EMR data (avail), discussed with nursing, discussed with case mgmt, reviewed images, amended to note Attending Assessment/Plan: 51-year-old male, active smoker, with past medical history significant for COPD, ischemic cardiomyopathy status post AICD with has been admitted on the floor for fatigue, unintentional weight loss, mild fever with worsening dyspnea and nonproductive cough has been admitted on the floor and underwent a biopsy for a spiculated mass in his right upper lung which was found to be an abscess and was drained. And was seen and examined on the bedside and reports that he is feeling great and much better. Patient has been continued on antibiotics and the results of his culture and biopsy are being awaited. For now patient is being continued on his empirical treatment with ceftriaxone and doxycycline.
--- NOTE | 2017-03-23 11:33 | PN- Infect Dx ---
Subjective Subjective: No fever. Less cough. Review of Systems Comments: 12 points reviewed as noted, otherwise negative. Objective Last 24 Hrs of Vital Signs/I&O Vital Signs Date Time Temp Pulse Resp B/P B/P Pulse O2 O2 Flow FiO2 Mean Ox Delivery Rate 03/23 0914 98.8 94 16 98/60 03/23 0800 98.0 98 16 98/60 97 Room Air 03/23 0753 97 Room Air Room Air 03/23 0046 98.8 94 16 98/60 96 Room Air 03/23 0000 97 Room Air 03/22 2127 112 114/72 03/22 1925 98 Room Air 03/22 1644 99.0 100 16 98/62 94 Room Air 03/22 1600 98 Room Air Room Air Intake & Output 03/23 1600 03/23 0800 03/23 0000 Intake Total 600 400 Output Total Balance 600 400 Intake, Oral 600 400 Physical Exam Other Physical Findings: General Appearance: no apparent distress, comfortable Head: atraumatic, normal appearance Eyes: Bilateral: PERRL, EOMI. Ears, Nose, Throat: normal pharynx Respiratory: normal breath sounds, chest non-tender, no respiratory distress, few wheezes Cardiovascular: regular rate/rhythm, normal peripheral pulses Gastrointestinal: normal bowel sounds, soft, non-tender, no organomegaly Extremities: normal inspection, no edema Neurologic/Psych: awake, alert, oriented x 3 Skin: pale Results Last 24 Hours of Lab Results: Laboratory Tests 03/23 03/23 0620 0615 Chemistry Sodium (137 - 145 mmol/L) 135 L Potassium (3.5 - 5.1 mmol/L) 4.3 Chloride (98 - 107 mmol/L) 95 L Carbon Dioxide (22 - 30 mmol/L) 25 Anion Gap (5 - 16) 16 BUN (9 - 20 mg/dL) 24 H Creatinine (0.7 - 1.2 mg/dL) 0.8 Estimated GFR (>60 ml/min) > 60 BUN/Creatinine Ratio (7 - 25 %) 30.0 H Uric Acid (3.5 - 8.5 mg/dL) 4.5 Phosphorus (2.5 - 4.5 mg/dL) 4.1 Hematology CBC w Diff MAN DIFF ORDERED WBC (4.8 - 10.8 /CUMM) 94.9 *H RBC (4.70 - 6.10 /CUMM) 3.57 L Hgb (14.0 - 18.0 G/DL) 10.7 L Hct (42 - 52 %) 30.9 L MCV (80.0 - 94.0 FL) 86.6 MCH (27.0 - 31.0 PG) 30.0 RDW (11.5 - 14.5 %) 14.9 H Plt Count (130 - 400 /CUMM) 484 H MPV (7.4 - 10.4 FL) 9.2 Gran % (42.2 - 75.2 %) 90.1 H Lymphocytes % (20.5 - 51.1 %) 3.7 L Monocytes % (1.7 - 9.3 %) 5.9 Eosinophils % (0 - 5 %) 0.1 Basophils % (0.0 - 2.0 %) 0.2 Absolute Granulocytes (1.4 - 6.5 /CUMM) 85.5 H Segmented Neutrophils (42.2 - 75.2 %) 84 H Band Neutrophils (0.0 - 5.0 %) 8 H Absolute Lymphocytes (1.2 - 3.4 /CUMM) 3.5 H Lymphocytes (20.5 - 51.1 %) 5 L Monocytes (1.7 - 9.3 %) 3 Absolute Monocytes (0.10 - 0.60 /CUMM) 5.6 H Absolute Eosinophils (0.0 - 0.7 /CUMM) 0.1 Absolute Basophils (0.0 - 0.2 /CUMM) 0.2 Platelet Estimate (ADEQUATE) VERIFIED BY SMEAR Polychromasia 1+ Anisocytosis 1+ PUBS MCHC (33.0 - 37.0 G/DL) 34.6 Last 24 Hours of Nikolai Results: SPEC #: [id number] ROSALINO: 03/20/17-1150 STATUS: RES RECD: 03/21/17-[address]: TRACE HERMAN,ANDRE SOURCE: LOWER RESP ENTR: 03/20/17-[address]: LUDMILA HERNANDEZ MD SPDESC: SPUTUM GONZALEZ GARCIA L ORDERED: LOWER RESPIRATO Procedure Result > GRAM STAIN Final 03/21/17-1415 WHITE BLOOD CELLS MANY SQUAMOUS CELLS FEW GRAM POSITIVE COCCI MANY GRAM NEGATIVE RODS MANY GRAM POSITIVE RODS MODERATE > LOWER RESPIRATORY CULTURE Preliminary 03/22/17-921 Mixed gordon after 1 day Recent Imaging Studies: SERVICE DATE: 03/22/17 EXAM TYPE: RAD - XRY-PORTABLE CHEST XRAY EXAMINATION: CHEST 1 VIEW CLINICAL INFORMATION: Shortness of breath. Lung biopsy. COMPARISON: Same day chest radiograph obtained at 1306 hours. TECHNIQUE: An AP view of the chest was obtained at 2002 hours. FINDINGS: The cardiac silhouette is not enlarged. The mediastinal and hilar contours are unremarkable. There are neither pleural effusions nor pneumothoraces. There is a stable rounded mass within the right apex. The lungs are hyperinflated. The osseous structures are unremarkable. IMPRESSION: Stable right apical mass. No discernible pneumothorax. DICTATED BY: LAURI JOSEPH MD Assessment/Plan Impression: 51-year-old male with cardiomyopathy s/p AICD placement, COPD, tobacco use, and HTN who admitted previous day with: Lung mass; etiology of the lung mass to be determined (S/P CT guided bx and cx) COPD exacerbation Leukemoid reaction; myeloproliferative disorder work up; WBC trending down Weight loss, fatigue, and low grade fever Partial SVC sd Right vocal cord paralysis Suggestion: 1. F/u cx results to further guide antibiotic treatment; continue empiric CTX/ doxycycline for 7 d; of note sputum cx from 03/20 mixed gordon. 2. Trend CBC, BMP. 3. F/u flow cytometry and cytogenetics (BCR-ABL, JAK2) results.
--- NOTE | 2017-03-23 11:41 | PN- Pulmonary ---
Subjective HPI/Critical Care Issues: No fever. Less cough. Review of Systems Comments: 12 points reviewed as noted, otherwise negative. Objective Current Medications: Current Medications Sig/Yuli Start time Last Medication Dose Route Stop Time Status Admin Albuterol Sulfate 3 ML TID 03/20 2200 AC 03/23 INH 0751 Azithromycin 500 MG 1830 03/20 1830 DC 03/21 Sodium Chloride 250 ML IV 1714 Budesonide/ 2 PUF BID 03/20 2200 AC 03/23 Formoterol Fumarate INH 0914 Bupropion HCl 200 MG BID 03/20 220 AC 03/23 PO 0914 Carvedilol 6.25 MG BID 03/20 2200 AC 03/23 PO 0914 Ceftriaxone Sodium 2,000 MG 1800 03/20 1800 AC 03/22 IV 1805 Doxycycline Hyclate 100 MG BID 03/22 2200 AC 03/23 PO 0914 Guaifenesin 600 MG Q12 03/21 1520 AC 03/23 PO 0914 Heparin Sodium 5,000 UNIT Q8 03/22 2200 AC 03/23 (Porcine) SC 0651 Ipratropium [place] 2.5 ML TID 03/20 2200 AC 03/23 INH 0751 Sertraline HCl 50 MG DAILY 03/20 1459 AC 03/23 PO 0914 Vital Signs & I&O Last 24 Hrs of Vitals and I&O: Vital Signs Date Time Temp Pulse Resp B/P B/P Pulse O2 O2 Flow FiO2 Mean Ox Delivery Rate 03/23 914 98.8 94 16 98/60 03/23 0800 98.0 98 16 98/60 97 Room Air 03/23 0753 97 Room Air Room Air 03/23 0046 98.8 94 16 98/60 96 Room Air 03/23 0000 97 Room Air 03/22 2127 112 114/72 03/22 1925 98 Room Air 03/22 1644 99.0 100 16 98/62 94 Room Air 03/22 1600 98 Room Air Room Air Intake & Output 03/23 1600 03/23 0800 03/23 0000 Intake Total 600 400 Output Total Balance 600 400 Intake, Oral 600 400 Laboratory Tests 03/23 03/23 0620 0615 Chemistry Sodium (137 - 145 mmol/L) 135 L Potassium (3.5 - 5.1 mmol/L) 4.3 Chloride (98 - 107 mmol/L) 95 L Carbon Dioxide (22 - 30 mmol/L) 25 Anion Gap (5 - 16) 16 BUN (9 - 20 mg/dL) 24 H Creatinine (0.7 - 1.2 mg/dL) 0.8 Estimated GFR (>60 ml/min) > 60 BUN/Creatinine Ratio (7 - 25 %) 30.0 H Uric Acid (3.5 - 8.5 mg/dL) 4.5 Phosphorus (2.5 - 4.5 mg/dL) 4.1 Hematology CBC w Diff MAN DIFF ORDERED WBC (4.8 - 10.8 /CUMM) 94.9 *H RBC (4.70 - 6.10 /CUMM) 3.57 L Hgb (14.0 - 18.0 G/DL) 10.7 L Hct (42 - 52 %) 30.9 L MCV (80.0 - 94.0 FL) 86.6 MCH (27.0 - 31.0 PG) 30.0 RDW (11.5 - 14.5 %) 14.9 H Plt Count (130 - 400 /CUMM) 484 H MPV (7.4 - 10.4 FL) 9.2 Gran % (42.2 - 75.2 %) 90.1 H Lymphocytes % (20.5 - 51.1 %) 3.7 L Monocytes % (1.7 - 9.3 %) 5.9 Eosinophils % (0 - 5 %) 0.1 Basophils % (0.0 - 2.0 %) 0.2 Absolute Granulocytes (1.4 - 6.5 /CUMM) 85.5 H Segmented Neutrophils (42.2 - 75.2 %) 84 H Band Neutrophils (0.0 - 5.0 %) 8 H Absolute Lymphocytes (1.2 - 3.4 /CUMM) 3.5 H Lymphocytes (20.5 - 51.1 %) 5 L Monocytes (1.7 - 9.3 %) 3 Absolute Monocytes (0.10 - 0.60 /CUMM) 5.6 H Absolute Eosinophils (0.0 - 0.7 /CUMM) 0.1 Absolute Basophils (0.0 - 0.2 /CUMM) 0.2 Platelet Estimate (ADEQUATE) VERIFIED BY SMEAR Polychromasia 1+ Anisocytosis 1+ PUBS MCHC (33.0 - 37.0 G/DL) 34.6 04/28 04/28 0635 0600 Chemistry Sodium (137 - 145 mmol/L) 138 Potassium (3.5 - 5.1 mmol/L) 4.4 Chloride (98 - 107 mmol/L) 99 Carbon Dioxide (22 - 30 mmol/L) 26 Anion Gap (5 - 16) 13 BUN (9 - 20 mg/dL) 32 H Creatinine (0.7 - 1.2 mg/dL) 0.9 Estimated GFR (>60 ml/min) > 60 BUN/Creatinine Ratio (7 - 25 %) 35.6 H C-Reactive Prot, Quant (<1.0 mg/dL) 5.0 H C-React Prot High Sens (1.0 - 3.0 mg/L) > 15.0 H Coagulation PT (9.4 - 12.5 SEC) 12.8 H INR (0.90 - 1.17) 1.22 H Hematology CBC w Diff MAN DIFF ORDERED WBC (4.8 - 10.8 /CUMM) 92.1 *H RBC (4.70 - 6.10 /CUMM) 3.72 L Hgb (14.0 - 18.0 G/DL) 10.9 L Hct (42 - 52 %) 32.7 L MCV (80.0 - 94.0 FL) 87.8 MCH (27.0 - 31.0 PG) 29.4 RDW (11.5 - 14.5 %) 14.9 H Plt Count (130 - 400 /CUMM) 478 H MPV (7.4 - 10.4 FL) 9.5 Gran % (42.2 - 75.2 %) 84.4 H Lymphocytes % (20.5 - 51.1 %) 4.1 L Monocytes % (1.7 - 9.3 %) 7.1 Eosinophils % (0 - 5 %) 0.2 Basophils % (0.0 - 2.0 %) 4.2 H Absolute Granulocytes (1.4 - 6.5 /CUMM) 77.8 H Segmented Neutrophils (42.2 - 75.2 %) 90 H Band Neutrophils (0.0 - 5.0 %) 3 Absolute Lymphocytes (1.2 - 3.4 /CUMM) 3.7 H Lymphocytes (20.5 - 51.1 %) 3 L Monocytes (1.7 - 9.3 %) 4 Absolute Monocytes (0.10 - 0.60 /CUMM) 6.6 H Absolute Eosinophils (0.0 - 0.7 /CUMM) 0.2 Absolute Basophils (0.0 - 0.2 /CUMM) 3.9 Platelet Estimate (ADEQUATE) ADEQUATE Polychromasia 1+ Anisocytosis 1+ PUBS MCHC (33.0 - 37.0 G/DL) 33.4 ESR Westergren (0 - 10 MM) 35 H Miscellaneous Ref Lab Test Result Pending Microbiology Date/Time Procedure - Status Source Growth 03/22 1000 Respiratory Culture - COLB LOWER RESP 03/22 1000 Gram Stain - COLB LOWER RESP 03/22 0730 Fungal Culture - RES LW RESPINV 03/22 0730 Fungal Culture - CAN BODY FLUID Cancelled: NOT BODY FLUID 03/22 0600 Respiratory Culture - RES LW RESPINV 03/22 0600 Gram Stain - RES LW RESPINV 03/22 0600 Body Fluid Culture - CAN BODY FLUID Cancelled: NOT BODY FLUID 03/22 0600 Gram Stain - CAN BODY FLUID Cancelled: NOT BODY FLUID 03/21 0819 Legionella Antigen - COMP URINE ROUT 03/21 0819 Streptococcus pneumoniae Antigen (M - COMP URINE ROUT 03/21 0819 Urine Culture - COMP URINE ROUT 03/20 1635 Blood Culture - RES BLOOD 03/20 1630 Blood Culture - RES BLOOD 03/20 1150 Respiratory Culture - RES LOWER RESP 03/20 1150 Gram Stain - RES LOWER RESP 03/20 1150 Routine Culture - RES LOWER RESP Impression/Plan Impression/Plan Impression/Plan: 51-year-old with history of cardiomyopathy AICD severe bullous emphysema admitted with increasing shortness of breath cough and hoarseness and new right upper lobe mass lesion. This density corresponds to a large right upper lobe bulla. 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
[2017-03-23 18:22] VITALS: BP 98/64
[2017-03-24 00:08] VITALS: BP 100/60
--- NOTE | 2017-03-24 06:42 | PN- Pulmonary ---
Subjective HPI/Critical Care Issues: Sleeping comfortably NO new overnight issues documented Objective Current Medications: Current Medications Sig/Yuli Start time Last Medication Dose Route Stop Time Status Admin Albuterol Sulfate 3 ML TID 03/20 2200 AC 03/23 INH 190 Budesonide/ 2 PUF BID 03/20 2200 AC 03/23 Formoterol Fumarate INH 2151 Bupropion HCl 200 MG BID 03/20 2200 AC 03/23 PO 214 Carvedilol 6.25 MG BID 03/20 2200 AC 03/23 PO 214 Ceftriaxone Sodium 2,000 MG 1800 03/20 1800 AC 03/23 IV 1728 Doxycycline Hyclate 100 MG BID 03/22 2200 AC 03/23 PO 214 Guaifenesin 600 MG Q12 03/21 1520 AC 03/23 PO 214 Heparin Sodium 5,000 UNIT Q8 03/22 (Porcine) SC 215 Ipratropium [place] 2.5 ML TID 03/20 2200 AC 03/23 INH 190 Sertraline HCl 50 MG DAILY 03/20 1459 AC 03/23 PO 0914 Laboratory Tests 03/23 03/23 0620 0615 Chemistry Sodium (137 - 145 mmol/L) 135 L Potassium (3.5 - 5.1 mmol/L) 4.3 Chloride (98 - 107 mmol/L) 95 L Carbon Dioxide (22 - 30 mmol/L) 25 Anion Gap (5 - 16) 16 BUN (9 - 20 mg/dL) 24 H Creatinine (0.7 - 1.2 mg/dL) 0.8 Estimated GFR (>60 ml/min) > 60 BUN/Creatinine Ratio (7 - 25 %) 30.0 H Uric Acid (3.5 - 8.5 mg/dL) 4.5 Phosphorus (2.5 - 4.5 mg/dL) 4.1 Hematology CBC w Diff MAN DIFF ORDERED WBC (4.8 - 10.8 /CUMM) 94.9 *H RBC (4.70 - 6.10 /CUMM) 3.57 L Hgb (14.0 - 18.0 G/DL) 10.7 L Hct (42 - 52 %) 30.9 L MCV (80.0 - 94.0 FL) 86.6 MCH (27.0 - 31.0 PG) 30.0 RDW (11.5 - 14.5 %) 14.9 H Plt Count (130 - 400 /CUMM) 484 H MPV (7.4 - 10.4 FL) 9.2 Gran % (42.2 - 75.2 %) 90.1 H Lymphocytes % (20.5 - 51.1 %) 3.7 L Monocytes % (1.7 - 9.3 %) 5.9 Eosinophils % (0 - 5 %) 0.1 Basophils % (0.0 - 2.0 %) 0.2 Absolute Granulocytes (1.4 - 6.5 /CUMM) 85.5 H Segmented Neutrophils (42.2 - 75.2 %) 84 H Band Neutrophils (0.0 - 5.0 %) 8 H Absolute Lymphocytes (1.2 - 3.4 /CUMM) 3.5 H Lymphocytes (20.5 - 51.1 %) 5 L Monocytes (1.7 - 9.3 %) 3 Absolute Monocytes (0.10 - 0.60 /CUMM) 5.6 H Absolute Eosinophils (0.0 - 0.7 /CUMM) 0.1 Absolute Basophils (0.0 - 0.2 /CUMM) 0.2 Platelet Estimate (ADEQUATE) VERIFIED BY SMEAR Polychromasia 1+ Anisocytosis 1+ PUBS MCHC (33.0 - 37.0 G/DL) 34.6 Microbiology Date/Time Procedure - Status Source Growth 03/22 1000 Respiratory Culture - CAN LOWER RESP Cancelled: NO SPUTUM COLLECTED 03/22 1000 Gram Stain - CAN LOWER RESP Cancelled: NO SPUTUM COLLECTED 03/22 730 Fungal Culture - RES LW RESPINV 03/22 07 Fungal Culture - CAN BODY FLUID Cancelled: NOT BODY FLUID 03/22 06 Respiratory Culture - RES LW RESPINV 03/22 06 Gram Stain - RES LW RESPINV 03/22 06 Body Fluid Culture - CAN BODY FLUID Cancelled: NOT BODY FLUID 03/22 06 Gram Stain - CAN BODY FLUID Cancelled: NOT BODY FLUID 03/21 819 Legionella Antigen - COMP URINE ROUT 03/21 819 Streptococcus pneumoniae Antigen (M - COMP URINE ROUT 03/21 819 Urine Culture - COMP URINE ROUT Vital Signs & I&O Last 24 Hrs of Vitals and I&O: Vital Signs Date Time Temp Pulse Resp B/P B/P Pulse O2 O2 Flow FiO2 Mean Ox Delivery Rate 03/24 0008 98.7 94 20 100/60 94 Room Air 03/24 0000 97 Room Air 03/23 2148 97 106/62 03/23 1905 95 Room Air Room Air 03/23 1822 99.3 120 20 98/64 95 03/23 1600 Room Air 03/23 0914 98.8 94 16 98/60 03/23 0800 98 Room Air Room Air 03/23 0800 98.0 98 16 98/60 97 Room Air 03/23 0753 97 Room Air Room Air Intake & Output 03/24 0800 03/24 0000 03/23 1600 Intake Total 1040 360 Output Total Balance 1040 360 Intake, IV 40 Intake, Oral 1000 360 Impression/Plan Impression/Plan Impression/Plan: General Exam: AAOx3, No acute distress, Skin: No rashes, no breakdown HEENT: PERRLA, EOMI Neck: Supple, No JVD No cervical lymphadenopathy CVS: Reg Rate, Normal S1,S2, No MGR Resp: Normal air entry, expiratory wheezes. Abdomen: Soft, No tenderness, Normal Bowel Sounds Neuro: Normal Speech, Strength 5/5 b/l x 4 extremities, Sensation intact, CN III -XII NL, Reflexes 2+ Extremities: No cyanosis, pedal edema 51-year-old with history of cardiomyopathy AICD severe bullous emphysema admitted with increasing shortness of breath cough and hoarseness and new right upper lobe mass lesion. This density corresponds to a large right upper lobe bulla. 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
[2017-03-24 08:13] LABS: ABSOLUTE BASOPHIL COUNT 0 /CUMM (0.0-0.2); ABSOLUTE EOSINOPHIL COUNT 0.2 /CUMM (0.0-0.7); ABSOLUTE GRANULOCYTE CT 100.9 /CUMM (1.4-6.5); ABSOLUTE LYMPH COUNT 3.1 /CUMM (1.2-3.4); BASOPHIL % 0 % (0.0-2.0); EOSINOPHIL % 0.2 % (0-5); HEMATOCRIT 30.9 % (42-52); MEAN CORPUSCULAR HGB 29.5 PG (27.0-31.0); MEAN CORPUSCULAR HGB CONC 33.9 G/DL (33.0-37.0); MEAN CORPUSCULAR VOLUME 87.1 FL (80.0-94.0); PLATELET COUNT 443 /CUMM (130-400); RBC DISTRIBUTION WIDTH 15.2 % (11.5-14.5); RED BLOOD CELL CT 3.55 /CUMM (4.70-6.10)
[2017-03-24 08:24] LABS: WHITE BLOOD CELL COUNT 106.2 /CUMM (4.8-10.8)
[2017-03-24 08:53] VITALS: BP 94/60
--- NOTE | 2017-03-24 09:09 | PN- Housestaff ---
FROYLAN MUELLER 03/24/17 0909: Subjective Follow-up For: Pneumonia Complaints: no complaints Tele-Events Since Last Visit: NSR - sinus tachycardia 87-108. Subjective: Patient seen and examined at bedside. Offers no complaints. He is on RA. Review of Systems Constitutional: Denies: chills, fever. Cardiovascular: Denies: chest pain, palpitations. Respiratory: Reports: cough, sputum production. Denies: hemoptysis, short of breath, wheezing. Gastrointestinal: Denies: abdominal pain, constipation, diarrhea, nausea, vomiting. Genitourinary: Reports: no symptoms. Musculoskeletal: Reports: no symptoms. Neurological/Psychological: Denies: headache, numbness, tingling, tremors, unable to move lower ext, unable to move upper ext, weakness. Objective Last 24 Hrs of Vital Signs/I&O Vital Signs Date Time Temp Pulse Resp B/P B/P Pulse O2 O2 Flow FiO2 Mean Ox Delivery Rate 03/24 0853 97.2 106 20 94/60 95 Room Air 03/24 0833 96 Room Air 03/24 0008 98.7 94 20 100/60 94 Room Air 03/24 0000 97 Room Air 03/23 2148 97 106/62 03/23 1905 95 Room Air Room Air 03/23 1822 99.3 120 20 98/64 95 03/23 1600 Room Air 03/23 0914 98.8 94 16 98/60 Intake & Output 03/24 1600 03/24 0800 03/24 0000 Intake Total 200 1040 Output Total Balance 200 1040 Intake, IV 40 Intake, Oral 200 1000 Physical Exam General Appearance: Alert, Oriented X3, Cooperative, No Acute Distress Skin Temp/Moisture Exam: Warm/Dry HEENT: Atraumatic, PERRLA, EOMI, Mucous Membr. moist/pink Neck: Supple, No JVD Cardiovascular: Normal S1, Normal S2, No Murmurs Lungs: decrased breath sounds bilaterally Abdomen: Normal Bowel Sounds, Soft, No Tenderness Neurological: Normal Speech, Strength at 5/5 X4 Ext, Normal Tone, Sensation Intact, Cranial Nerves 3-12 NL, Reflexes 2+ Extremities: No Clubbing, No Cyanosis, No Edema, Normal Pulses, No Tenderness/ Swelling Current Medications: Current Medications Sig/Yuli Start time Last Medication Dose Route Stop Time Status Admin Albuterol Sulfate 3 ML TID 03/20 2200 AC 03/24 INH 0813 Budesonide/ 2 PUF BID 03/20 2200 AC 03/23 Formoterol Fumarate INH 215 Bupropion HCl 200 MG BID 03/20 2200 AC 03/23 PO 2148 Carvedilol 6.25 MG BID 03/20 2200 AC 03/23 PO 2148 Ceftriaxone Sodium 2,000 MG 1800 03/20 1800 AC 03/23 IV 1728 Doxycycline Hyclate 100 MG BID 03/22 2200 AC 03/23 PO 214 Guaifenesin 600 MG Q12 03/21 1520 AC 03/23 PO 2148 Heparin Sodium 5,000 UNIT Q8 03/22 2200 AC 03/24 (Porcine) SC 0643 Ipratropium [place] 2.5 ML TID 03/20 2200 AC 03/24 INH 0813 Sertraline HCl 50 MG DAILY 03/20 1459 AC 03/23 PO 0914 Last 24 Hrs of Lab/Nikolai Results Last 24 Hrs of Labs/Mics: Laboratory Tests 03/24/17 0605: Anion Gap 13, Estimated GFR > 60, BUN/Creatinine Ratio 22.2, CBC w Diff MAN DIFF ORDERED, WBC Pending, RBC Pending, Hgb Pending, Hct Pending, MCV Pending, MCH Pending, RDW Pending, Plt Count Pending, MPV Pending, Gran % Pending, Lymphocytes % Pending, Monocytes % Pending, Eosinophils % Pending, Basophils % Pending, Absolute Granulocytes Pending, Segmented Neutrophils Pending, Absolute Lymphocytes Pending, Absolute Monocytes Pending, Absolute Eosinophils Pending, Absolute Basophils Pending, PUBS MCHC Pending Assessment/Plan Assessment: Mr Tejada is a 51-year-old man with a [id number] smoking history, cardiomyopathy ( dx'ed 2016, s/p AICD), hypertension, chronic bronchitis/ emphysema(not on home oxygen). He is being evaluted for a chief concern of fatigue x 1 month , shortness of breath, fever, cough, voice change x 2 wks. The last 24 hours leukocytosis 104.8--> 155.7. Increased band neutrophils. Iron studies indicated iron 15, TIBC 215, ferritin 320 (indicating anemia of chronic disease), alkaline phosphatase 218, lactate dehydrogenase 1643, vitamin B12 greater than 1000. (Likely malignancy/myelodysplastic syndrome). Differential diagnoses: #1 lung mass (SLC ) #2 leukemoid reaction #3 lung abscess Below is the problem list and plan: #1 shortness of breath: Could be multifactorial. At this time, COPD, lung abscess, small cell lung cancer are in the differential. Primary lung cancer is usually associated with leukocytosis also. Infectious cause is highly likely. Considering the duration/acuity of changes infectious versus small cell lung cancer are to be considered. However, no paraneoplastic findings were seen. Myeloproliferative neoplasm/myelodysplastic syndrome is also in the differential. Flow cytometry to look for lymphoma, and cytogenetic studies for BCL ABR, Sin 2 mutation, cytogenetics for acute leukemia, 5 every deletion to be done. Await results from lung biopsy- cytology, Gram stain, culture to be done. Pro-calcitonin to delineate infection versus lung mass. Continue antibiotics- ceftriaxone and doxycycline to cover for streptococcal and possible staph for a total of 7 days thru 03/26/17. ESR/CRP/procalcitonin level in am. If procalcitonin level is low, will D/C antibiotics. #2 DVT prophylaxis-Lovenox #3 full code. Problem List: 1. Lung mass 2. Leukocytosis Pain Ratin Pain Location: n/a Pain Goal: Remain pain free Pain Plan: tylenol Tomorrow's Labs & Rationales: cbc- monitor wbc, BEP- Cr, ESR, CRP , procalcitonin- infectious etiology VANDANA HERMAN,[facility] 03/24/17 1607: Attending MD Review Statement Attending Statement Attending MD Statement: examined this patient, discuss w/resident/PA/[employer] SUPERVISOR, agreed w/resident/PA/TUMBLERS SUPERVISOR, reviewed EMR data (avail), discussed with nursing, discussed with case mgmt, reviewed images, amended to note Attending Assessment/Plan: 51-year-old male, active smoker, with past medical history significant for COPD, ischemic cardiomyopathy status post AICD with has been admitted on the floor for fatigue, unintentional weight loss, mild fever with worsening dyspnea and nonproductive cough has been admitted on the floor and underwent a biopsy for a spiculated mass in his right upper lung which was found to be an abscess and was drained. Patient was seen and examined on the bedside and reports that he is doing ok. Patient has been continued on antibiotics and the results of his culture and biopsy are being awaited. For now patient is being continued on his empirical treatment with ceftriaxone and doxycycline.
--- NOTE | 2017-03-24 17:15 | PN- Infect Dx ---
Subjective Subjective: No fever or chills, occas cough. Fair appetite. SOB is worse in am. Review of Systems Comments: 12 points reviewed as noted, otherwise negative. Objective Last 24 Hrs of Vital Signs/I&O Vital Signs Date Time Temp Pulse Resp B/P B/P Pulse O2 O2 Flow FiO2 Mean Ox Delivery Rate 03/24 0932 106 98/60 03/24 0853 97.2 106 20 94/60 95 Room Air 03/24 0833 96 Room Air 03/24 0800 95 Room Air Room Air 03/24 0008 98.7 94 20 100/60 94 Room Air 03/24 0000 97 Room Air 03/23 2148 97 106/62 03/23 1905 95 Room Air Room Air 03/23 1822 99.3 120 20 98/64 95 Intake & Output 03/24 1600 03/24 0800 03/24 0000 Intake Total 309 321 2232 Output Total Balance 157 447 5161 Intake, IV 40 Intake, Oral 292 076 3091 Physical Exam Other Physical Findings: General Appearance: no apparent distress, comfortable Head: atraumatic, normal appearance Eyes: Bilateral: PERRL, EOMI. Ears, Nose, Throat: normal pharynx Respiratory: normal breath sounds, chest non-tender, no respiratory distress, few wheezes Cardiovascular: regular rate/rhythm, normal peripheral pulses Gastrointestinal: normal bowel sounds, soft, non-tender, no organomegaly Extremities: normal inspection, no edema Neurologic/Psych: awake, alert, oriented x 3 Skin: pale Results Last 24 Hours of Lab Results: Laboratory Tests 03/24 0605 Chemistry Sodium (137 - 145 mmol/L) 133 L Potassium (3.5 - 5.1 mmol/L) 4.4 Chloride (98 - 107 mmol/L) 96 L Carbon Dioxide (22 - 30 mmol/L) 25 Anion Gap (5 - 16) 13 BUN (9 - 20 mg/dL) 20 Creatinine (0.7 - 1.2 mg/dL) 0.9 Estimated GFR (>60 ml/min) > 60 BUN/Creatinine Ratio (7 - 25 %) 22.2 Hematology CBC w Diff MAN DIFF ORDERED WBC (4.8 - 10.8 /CUMM) 106.2 *H RBC (4.70 - 6.10 /CUMM) 3.55 L Hgb (14.0 - 18.0 G/DL) 10.5 L Hct (42 - 52 %) 30.9 L MCV (80.0 - 94.0 FL) 87.1 MCH (27.0 - 31.0 PG) 29.5 RDW (11.5 - 14.5 %) 15.2 H Plt Count (130 - 400 /CUMM) 443 H MPV (7.4 - 10.4 FL) 9.0 Gran % (42.2 - 75.2 %) 95.0 H Lymphocytes % (20.5 - 51.1 %) 2.9 L Monocytes % (1.7 - 9.3 %) 1.9 Eosinophils % (0 - 5 %) 0.2 Basophils % (0.0 - 2.0 %) 0 L Absolute Granulocytes (1.4 - 6.5 /CUMM) 100.9 H Segmented Neutrophils (42.2 - 75.2 %) 87 H Band Neutrophils (0.0 - 5.0 %) 8 H Absolute Lymphocytes (1.2 - 3.4 /CUMM) 3.1 Lymphocytes (20.5 - 51.1 %) 3 L Monocytes (1.7 - 9.3 %) 2 Absolute Monocytes (0.10 - 0.60 /CUMM) 2.0 H Absolute Eosinophils (0.0 - 0.7 /CUMM) 0.2 Absolute Basophils (0.0 - 0.2 /CUMM) 0 Platelet Estimate (ADEQUATE) VERIFIED BY SMEAR Polychromasia 1+ Anisocytosis 1+ PUBS MCHC (33.0 - 37.0 G/DL) 33.9 Last 24 Hours of Nikolai Results: SPEC #: [id number] ROSALINO: 03/22/17 STATUS: RES RECD: 03/22/17-1220 [facility] DR: TRACE HERMAN,ANDRE SOURCE: LW RESPINV ENTR: 03/22/17-[address]: DAVID HERMAN,LUDMILA SPDESC: LUNG,R GONZALEZ JORDAN ORDERED: LOW RESP INVAS COMMENT: RIGHT LUNG TISSUE CORE RECEIVED. Procedure Result > GRAM STAIN Final 03/23/17-1120 WHITE BLOOD CELLS RARE OTHER NO ORGANISMS SEEN > LOWER RESPIRATORY CULTURE-O.R. Preliminary 03/24/17-0857 NO GROWTH AFTER 2 DAYS Recent Imaging Studies: CXR 03/22/17: IMPRESSION: Stable right apical mass. No discernible pneumothorax. DICTATED BY: LAURI JOSEPH MD DATE/TIME DICTATED:03/22/172016 [employer]:VAL DATE/TIME TRANSCRIBED:03/22/172016 CONFIDENTIAL, DO NOT COPY WITHOUT APPROPRIATE AUTHORIZATION. Assessment/Plan Impression: 51-year-old male with cardiomyopathy s/p AICD placement, COPD, tobacco use, and HTN who admitted previous day with: Lung mass; etiology of the lung mass to be determined (S/P CT guided bx; awaiting path and final cx results) COPD exacerbation Leukemoid reaction; myeloproliferative disorder work up; elevated LDH Weight loss, fatigue, and low grade fever Partial SVC sd Right vocal cord paralysis Hyponatremia (?SIADH) Suggestion: 1. F/u biopsy, flow cytometry and cytogenetics (BCR-ABL, JAK2) results. 2. Empiric CTX/doxycycline for 7 d (until 03/26/17); of note sputum cx from 03/20 and 03/22 mixed gordon. 3. Trend CBC, BMP. Uric acid level in am. Consider ESR/CRP/procalcitonin level in am; if procal level low would d/c abx treatment. 4. Call if spiking fever.
[2017-03-24 17:17] VITALS: BP 96/54
[2017-03-24 22:47] VITALS: BP 110/60
--- NOTE | 2017-03-25 08:02 | PN- Oncology ---
Subjective Subjective: His breathing is stable. He does get short of breath with exertion. He has no chest pain. 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 Review of Systems Constitutional: Denies: chills, fever, malaise. Cardiovascular: Denies: chest pain. Respiratory: Reports: cough, short of breath, sputum production. Denies: wheezing. Gastrointestinal: Denies: diarrhea. All Other Systems: Reviewed and Negative Objective Vital Signs and I&Os Vital Signs Date Time Temp Pulse Resp B/P B/P Pulse O2 O2 Flow FiO2 Mean Ox Delivery Rate 03/25 0000 97 Room Air 03/24 2247 98.9 105 18 110/60 95 Room Air 03/24 2040 105 110/60 03/24 1856 97 Room Air Room Air 03/24 1717 98.6 96 18 96/54 96 03/24 1600 96 Room Air Room Air 03/24 0932 106 98/60 03/24 0853 97.2 106 20 94/60 95 Room Air 03/24 0833 96 Room Air 03/24 0800 95 Room Air Room Air Intake & Output 03/25 0800 03/25 0000 03/24 1600 03/24 0800 03/24 0000 03/23 1600 Intake Total 600 783 249 8890 360 Output Total Balance 600 033 244 2150 360 Intake, IV 40 Intake, Oral 600 336 140 6486 360 Physical Exam General Appearance: no apparent distress, alert, awake, comfortable, thin Ears, Nose, Throat: hoarse voice Respiratory: chest non-tender, no respiratory distress, quiet respiration, decreased breath sounds Cardiovascular: regular rate/rhythm Abdomen: normal bowel sounds, non-tender, no organomegaly Extremities: no edema Neurologic/Psychiatric: awake, alert, oriented x 3 Lymphatic: no anterior cervical pauline Current Medications: Current Medications Sig/Yuli Start time Last Medication Dose Route Stop Time Status Admin Acetaminophen 650 MG Q4P PRN 03/24 2100 AC PO Albuterol Sulfate 3 ML TID 03/20 2200 AC 03/24 INH 1856 Budesonide/ 2 PUF BID 03/20 2200 AC 03/24 Formoterol Fumarate INH 2040 Bupropion HCl 200 MG BID 03/20 2200 AC 03/24 PO 2040 Carvedilol 6.25 MG BID 03/20 2200 AC 03/24 PO 204 Ceftriaxone Sodium 1,000 MG 1800 03/24 1800 AC 03/24 IV 03/26 2300 1754 Ceftriaxone Sodium 2,000 MG 1800 03/20 1800 DC 03/23 IV 1728 Doxycycline Hyclate 100 MG BID 03/22 2200 AC 03/24 PO 03/26 2300 2041 Guaifenesin 600 MG Q12 03/21 1520 AC 03/24 PO 2041 Heparin Sodium 5,000 UNIT Q8 03/22 2200 AC 03/25 (Porcine) SC 0600 Ipratropium [place] 2.5 ML TID 03/20 220 AC 03/24 INH 1856 Sertraline HCl 50 MG DAILY 03/20 1459 AC 03/24 PO 0932 Results Last 24 Hours of Lab Results: Laboratory Tests 03/25 0640 Chemistry Sodium Pending Potassium Pending Chloride Pending Carbon Dioxide Pending Anion Gap Pending BUN Pending Creatinine Pending BUN/Creatinine Ratio Pending Uric Acid Pending C-React Prot High Sens Pending Hematology CBC w Diff Pending WBC Pending RBC Pending Hgb Pending Hct Pending MCV Pending MCH Pending RDW Pending Plt Count Pending MPV Pending PUBS MCHC Pending ESR Westergren Pending Assessment/Plan Assessment/Recommendations: Mr. Tejada is a 51-year-old male with cardiomyopathy s/p AICD, HTN, and tobacco usage who presented to [facility] with fatigue, dyspnea, cough, and voice changes. He was noted to have leukocytosis of 104,800 and 6.5 cm right apical lung mass. He has persistent leukocytosis with left shift. He continues to have bandemia. Flow cytometry and cytogenetic is pending. WBC has been stable around 100,000. Lung mass has been biopsied. Gram stain is negative so far for bacteria. Cultures and pathology are pending. He is relatively stable on RA at rest right now. He has not ambulated much. He may need evaluation for oxygen with exertion. Recommendations: 1. Follow up on biopsy of lung mass, include cultures of sample 2. Follow up cultures 3. Follow up on flow cytometry and cytogenetics Please call [phone] with any questions. Problem List: 1. Leukocytosis 2. Lung mass
--- NOTE | 2017-03-25 08:05 | PN- Housestaff ---
ANDRE WOODWARD 03/25/17 0804: Subjective Follow-up For: - lung mass Complaints: no complaints Tele-Events Since Last Visit: NSR, HR 90's, no overnight events. Subjective: Pt was comfortable. No complaints. Vitals stable. Review of Systems Constitutional: Reports: see HPI. Objective Last 24 Hrs of Vital Signs/I&O Vital Signs Date Time Temp Pulse Resp B/P B/P Pulse O2 O2 Flow FiO2 Mean Ox Delivery Rate 03/25 0000 97 Room Air 03/24 2247 98.9 105 18 110/60 95 Room Air 03/24 2040 105 110/60 03/24 1856 97 Room Air Room Air 03/24 1717 98.6 96 18 96/54 96 03/24 1600 96 Room Air Room Air 03/24 0932 106 98/60 03/24 0853 97.2 106 20 94/60 95 Room Air 03/24 0833 96 Room Air Intake & Output 03/25 1600 03/25 0800 03/25 0000 Intake Total 200 600 Output Total Balance 200 600 Intake, Oral 200 600 Physical Exam General Appearance: No Acute Distress Current Medications: Current Medications Sig/Yuli Start time Last Medication Dose Route Stop Time Status Admin Acetaminophen 650 MG Q4P PRN 03/24 2100 AC PO Albuterol Sulfate 3 ML TID 03/20 2200 AC 03/24 INH 1856 Budesonide/ 2 PUF BID 03/20 2200 AC 03/24 Formoterol Fumarate INH 204 Bupropion HCl 200 MG BID 03/20 2200 AC 03/24 PO 2040 Carvedilol 6.25 MG BID 03/20 2200 AC 03/24 PO 2040 Ceftriaxone Sodium 1,000 MG 1800 03/24 1800 AC 03/24 IV 03/26 2300 1754 Ceftriaxone Sodium 2,000 MG 1800 03/20 1800 DC 03/23 IV 1728 Doxycycline Hyclate 100 MG BID 03/22 2200 AC 03/24 PO 03/26 2300 2041 Guaifenesin 600 MG Q12 03/21 1520 AC 03/24 PO 2041 Heparin Sodium 5,000 UNIT Q8 03/22 2200 AC 03/25 (Porcine) SC 0600 Ipratropium [place] 2.5 ML TID 03/20 2200 AC 03/24 INH 1856 Sertraline HCl 50 MG DAILY 03/20 1459 AC 03/24 PO 0932 Last 24 Hrs of Lab/Nikolai Results Last 24 Hrs of Labs/Mics: Laboratory Tests 03/25/17 0640: Sodium Pending, Potassium Pending, Chloride Pending, Carbon Dioxide Pending, Anion Gap Pending, BUN Pending, Creatinine Pending, BUN/Creatinine Ratio Pending , Uric Acid Pending, C-React Prot High Sens Pending, CBC w Diff Pending, WBC Pending, RBC Pending, Hgb Pending, Hct Pending, MCV Pending, MCH Pending, RDW Pending, Plt Count Pending, MPV Pending, PUBS MCHC Pending, ESR Westergren Pending Microbiology 03/24 1625 LOWER RESP: Respiratory Culture - CAN Cancelled: Cancelled via OE: Per MD Decision 03/24 162 LOWER RESP: Gram Stain - CAN Cancelled: Cancelled via OE: Per MD Decision Assessment/Plan Assessment: Mr Tejada is a 51-year-old man with a [id number] smoking history, cardiomyopathy ( dx'ed 2016, s/p AICD), hypertension, chronic bronchitis/ emphysema(not on home oxygen). He is being evaluted for a chief concern of fatigue x 1 month , shortness of breath, fever, cough, voice change x 2 wks. The last 24 hours leukocytosis 104.8--> 155.7(high)-->115. Increased band neutrophils. Iron studies indicated iron 15, TIBC 215, ferritin 320 (indicating anemia of chronic disease), alkaline phosphatase 218, lactate dehydrogenase 1643 , vitamin B12 greater than 1000. (Likely malignancy/myelodysplastic syndrome). Differential diagnoses: #1 lung mass (NSLC ) #2 leukemoid reaction #3 lung absces Below is the problem list and plan: #1 shortness of breath: Preliminary results from pathology revealed NSLC. Await final results. Intial differential included- lung abscess, leukemoid reaction. Pt has been on ceftriaxone and doxycycline so far. No growth of any organisms in both respiratory and lung abscess cultures so far, making infectious source unlikely now. Will continue for another day, and discontinue the meds. For NSCLC , it has not been properly staged so far. CT scan chest and abdomen did not reveal any lymphaenopathy. PET scan is scheduled for staging, as infectious source is safely ruled out. Lung cancers are associated w/ leucocytosis( leukemoid reaction is a possible explanation). Reordered flow cytometry and cytogenetics which unfortunately, were not sent, as the tests could not get an approval. Dr. Wheatley advising. #2 DVT prophylaxis-Lovenox #3 full code. Problem List: 1. Leukocytosis 2. Lung mass Pain Ratin Pain Location: none Pain Goal: Pain 4 or less Pain Plan: tylenol prn Tomorrow's Labs & Rationales: cbc- leucocytosis. DVT/Prophylaxis: pharmacological (heparin sc) Consulting Request: Consulting Specialty: Cardiology JOJO CINTRON MD 03/25/17 1201: Attending MD Review Statement Attending Statement Attending MD Statement: examined this patient, discuss w/resident/PA/TECHNICAL ASST, agreed w/resident/PA/TECHNICAL ASST, reviewed EMR data (avail), discussed with nursing, discussed with case mgmt, reviewed images, amended to note Attending Assessment/Plan: Patient seen and examined, still feels short of breath marizol on exertion. Path results from lung biopsy show non-small cell lung carcinoma. Vital Signs Date Time Temp Pulse Resp B/P B/P Pulse O2 O2 Flow FiO2 Mean Ox Delivery Rate 03/25 0934 98.0 96 18 94/54 03/25 0857 95 Room Air 03/25 0822 98.0 96 18 90/60 97 Room Air 03/25 0800 96 Room Air Room Air 03/25 0000 97 Room Air 03/24 2247 98.9 105 18 110/60 95 Room Air 03/24 2040 105 110/60 03/24 1856 97 Room Air Room Air 03/24 1717 98.6 96 18 96/54 96 03/24 1600 96 Room Air Room Air on exam; aox3, nad. cv; s1,s2, rrr resp; clear with decrease bs overall. abd; soft, nt, bs+ ext; 1+ edema. Laboratory Tests 03/25 0640 Chemistry Sodium (137 - 145 mmol/L) 133 L Potassium (3.5 - 5.1 mmol/L) 3.9 Chloride (98 - 107 mmol/L) 94 L Carbon Dioxide (22 - 30 mmol/L) 23 Anion Gap (5 - 16) 16 BUN (9 - 20 mg/dL) 19 Creatinine (0.7 - 1.2 mg/dL) 0.9 Estimated GFR (>60 ml/min) > 60 BUN/Creatinine Ratio (7 - 25 %) 21.1 Uric Acid (3.5 - 8.5 mg/dL) 5.0 C-Reactive Prot, Quant (<1.0 mg/dL) > 9.0 H C-React Prot High Sens (1.0 - 3.0 mg/L) > 15.0 H Hematology CBC w Diff MAN DIFF ORDERED WBC (4.8 - 10.8 /CUMM) 115.2 *H RBC (4.70 - 6.10 /CUMM) 3.47 L Hgb (14.0 - 18.0 G/DL) 10.2 L Hct (42 - 52 %) 30.4 L MCV (80.0 - 94.0 FL) 87.5 MCH (27.0 - 31.0 PG) 29.4 RDW (11.5 - 14.5 %) 14.8 H Plt Count (130 - 400 /CUMM) 444 H MPV (7.4 - 10.4 FL) 8.7 Gran % (42.2 - 75.2 %) 95.7 H Lymphocytes % (20.5 - 51.1 %) 1.9 L Monocytes % (1.7 - 9.3 %) 2.2 Eosinophils % (0 - 5 %) 0.2 Basophils % (0.0 - 2.0 %) 0 L Absolute Granulocytes (1.4 - 6.5 /CUMM) 110.2 H Segmented Neutrophils (42.2 - 75.2 %) 79 H Band Neutrophils (0.0 - 5.0 %) 16 H Absolute Lymphocytes (1.2 - 3.4 /CUMM) 2.2 Lymphocytes (20.5 - 51.1 %) 1 L Monocytes (1.7 - 9.3 %) 4 Absolute Monocytes (0.10 - 0.60 /CUMM) 2.6 H Absolute Eosinophils (0.0 - 0.7 /CUMM) 0.3 Absolute Basophils (0.0 - 0.2 /CUMM) 0 Platelet Estimate (ADEQUATE) ADEQUATE Normocytic RBCs VERIFIED Polychromasia Hypochromic-Microcytic 1+ PUBS MCHC (33.0 - 37.0 G/DL) 33.6 ESR Westergren (0 - 10 MM) 35 H A/P; Mr Tejada is a 51-year-old man with a [id number] smoking history, cardiomyopathy ( dx'ed 2016, s/p AICD), hypertension, chronic bronchitis/ emphysema(not on home oxygen) admitted with sob, fatigue, hypersomnia, fever, cough, found to have a lung, initially thought to be lung abcess and patient epirically treated with abx. All cultures remained negative. Pathology report was called in by Dr. Frances Khan to Dr. Jean and it shows non-small cell lung carcinoma. Awaiting for official report to be entered in the computer. Leukocytosis is still worsening. At this point will complete a total of seven-day course of antibiotics as recommended by infectious disease. Patient is not requiring any oxygen, continue TRC nebs and inhalers. I have placed a call for to discuss about these biopsy results as well as the fact that patient has the significant leukocytosis. Question if this is related to leukemoid reaction from malignancy versus hematologic malignancy. DVT prophylaxis: Heparin subcutaneous. Spok with Dr. Wheatley, recommends sending Flow Cyto, cytogenetics, JAK2, BCL ABR. REcommends PET scan for Staging. Please discuss with Dr. Dan and Dr. Bella for possible future surgery for lung cancer if he has early stage cancer.
[2017-03-25 08:13] LABS: ABSOLUTE BASOPHIL COUNT 0 /CUMM (0.0-0.2); ABSOLUTE EOSINOPHIL COUNT 0.3 /CUMM (0.0-0.7); ABSOLUTE GRANULOCYTE CT 110.2 /CUMM (1.4-6.5); ABSOLUTE LYMPH COUNT 2.2 /CUMM (1.2-3.4); ABSOLUTE MONOCYTE COUNT 2.6 /CUMM (0.10-0.60); BASOPHIL % 0 % (0.0-2.0); EOSINOPHIL % 0.2 % (0-5); GRANULOCYTE % 95.7 % (42.2-75.2); HEMATOCRIT 30.4 % (42-52); MEAN CORPUSCULAR HGB 29.4 PG (27.0-31.0); MEAN CORPUSCULAR HGB CONC 33.6 G/DL (33.0-37.0); MEAN CORPUSCULAR VOLUME 87.5 FL (80.0-94.0); MEAN PLATELET VOLUME 8.7 FL (7.4-10.4); PLATELET COUNT 444 /CUMM (130-400); RBC DISTRIBUTION WIDTH 14.8 % (11.5-14.5); RED BLOOD CELL CT 3.47 /CUMM (4.70-6.10)
--- NOTE | 2017-03-25 08:20 | PN- Pulmonary ---
Subjective HPI/Critical Care Issues: Patient is status post right upper lobe biopsy he remains hoarse secondary to vocal cord paralysis cultures remain negative Objective Current Medications: Current Medications Sig/Yuli Start time Last Medication Dose Route Stop Time Status Admin Acetaminophen 650 MG Q4P PRN 03/24 2100 AC PO Albuterol Sulfate 3 ML TID 03/20 2200 AC 03/24 INH 1856 Budesonide/ 2 PUF BID 03/20 2200 AC 03/24 Formoterol Fumarate INH 2041 Bupropion HCl 200 MG BID 03/20 2200 AC 03/24 PO 2040 Carvedilol 6.25 MG BID 03/20 2200 AC 03/24 PO 2040 Ceftriaxone Sodium 1,000 MG 1800 03/24 1800 AC 03/24 IV 03/26 2300 1754 Ceftriaxone Sodium 2,000 MG 1800 03/20 1800 DC 03/23 IV 1728 Doxycycline Hyclate 100 MG BID 03/22 2200 AC 03/24 PO 03/26 2300 2041 Guaifenesin 600 MG Q12 03/21 1520 AC 03/24 PO 2041 Heparin Sodium 5,000 UNIT Q8 03/22 2200 AC 03/25 (Porcine) SC 0600 Ipratropium [place] 2.5 ML TID 03/20 220 AC 03/24 INH 1856 Sertraline HCl 50 MG DAILY 03/20 1459 AC 03/24 PO 0932 Vital Signs & I&O Last 24 Hrs of Vitals and I&O: Room air oxygen saturation 97% exam of his chest shows clear lung csott are no focal wheezes cardiac exam shows regular S1 and S2 without murmurs Vital Signs Date Time Temp Pulse Resp B/P B/P Pulse O2 O2 Flow FiO2 Mean Ox Delivery Rate 03/25 0000 97 Room Air 03/247 98.9 105 18 110/60 95 Room Air 03/24 2040 105 110/60 03/24 1856 97 Room Air Room Air 03/24 1717 98.6 96 18 96/54 96 03/24 1600 96 Room Air Room Air 03/24 0932 106 98/60 03/24 0853 97.2 106 20 94/60 95 Room Air 03/24 0833 96 Room Air Intake & Output 03/25 1600 05 0800 05 0000 Intake Total 200 600 Output Total Balance 200 600 Intake, Oral 200 600 Impression/Plan Impression/Plan Impression/Plan: 51-year-old with history of cardiomyopathy AICD severe bullous emphysema admitted with increasing shortness of breath cough and hoarseness and new right upper lobe mass lesion. This density corresponds to a large right upper lobe bulla. 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 This is been arranged for today. Patient will need PT PTT. Follow- up biopsy results today. Description of biopsy is certainly more worrisome for malignancy Recommendations: Assess sputum C&S and cytology. Obtain PT PTT in preparation for CT-guided aspiration and biopsy of right upper lobe mass.
[2017-03-25 08:22] VITALS: BP 90/60
[2017-03-25 09:18] LABS: WHITE BLOOD CELL COUNT 115.2 /CUMM (4.8-10.8)
--- NOTE | 2017-03-25 14:43 | Discharge Summary ---
Visit Information Visit Dates Admission Date: 03/20/17 Discharge Date: 03/26/17 Hospital Course Course Attending Physician: SAIDA HERMAN,JOJO Primary Care Physician: GONZALEZ GARCIA Consulting Request: Consulting Specialty: Hematology/Oncology Consulting Physician: Dr. Wheatley [facility] Course: Mr Tejada is a 51-year-old man with a [id number] smoking history, cardiomyopathy ( dx'ed 2016, s/p AICD), hypertension, chronic bronchitis/ emphysema(not on home oxygen). He is being evaluted for a chief concern of fatigue x 1 month , shortness of breath, fever, productive cough, voice change x 2 wks. Reported approximately 20 pound weight loss in the last 1 year with no changes in appetite. At the time of admission, vitals revealed temperature 97.5, pulse rate 93, respirations 16, pulse ox 95% on room air. Lab findings indicated WBC leukocytosis (104.8K) with predominant neutrophils (10% bands), minimal lymphocytes w/ no blasts(as confirmed by pathologist), hemoglobin 10.3 (baseline 13.8 one year ago), platelets 430. Electrolytes-sodium 139, potassium 4.7, chloride 98, bicarbonate 25, BUN 29, serum creatinine 0.8 (normal renal function ), normal AST and ALT 11, 19; alkaline phosphatase 218 (no history of alcohol use or liver dysfunction). EKG findings revealed normal sinus rhythm, with a right axis deviation (axis-in between +90-+120), Q waves in V1-V2, with no ST-T wave changes. Chest x-ray revealed apical lung mass on the right side. CT scan confirmed the findings- 6.5 intermediate density mass at right lung apex. Also was found in this matter changes and 0.5 cm spiculated nodule at left lung apex seen. No lymphadenopathy was noted. Increased band neutrophils. Iron studies indicated iron 15, TIBC 215, ferritin 320 (indicating anemia of chronic disease), alkaline phosphatase 218, lactate dehydrogenase 1643, vitamin B12 greater than 1000. (Likely malignancy/ myelodysplastic syndrome). Echocardiogram Normal left ventricular ejection fraction estimated at 55%. Differential diagnoses: #1 lung mass (NSCLC ) #2 leukemoid reaction #3 lung abscess Below is the problem list and plan: #1 shortness of breath: Could be multifactorial. Pt was found to have a mass in the right upper lobe, which was actively worked up. Last known imaging was done two months prior to admission, which was normal. Since, the mass showed aggressive growth, initial differentials, included lung mass and lung abscess. Lung biopsy was done which revealed necrotic aspirate, and hence the differential of abscess was entertained till the pathology results were finalized. Pt was treated w/ antibiotics which were discontinued after pathology revealed NSCLC. Pt continued to have leucocytosis 104-->155-->134, for which there was a lack of a clear explanation at the time of discharge. Several attempts were made to test cytogenetics and flow cytometry, but could not test them timely due to unavailability. Although, the lung caners are associated w/ leucocytosis which was a resonable assumption, w/ a lack of objective evidence at the time of discharge. Other important cause was leukemoid reaction. Also, attempts were made to have a PET scan done, while in the hospital; but was arranged as an outpatient to grade the lung cancer, which was thought to be either stage 2 with limited data from the CT scan considering lack of mediastinal lymph nodes. 2. Idiopathic nonischemic cardiomyopathy status post AICD: pt was monitored on telemetry. Pt was continued on enetresto and Coreg. Emmett García, Abby, Ni, and Jena were consulted for advice. Allergies: Coded Allergies: NO KNOWN ALLERGIES (06/06/13) Pertinent Lab Results: CAT - CT CHEST W IV CONTRAST 03/20/17-1302 1. A 6.5 intermediate density mass at the right lung apex. This is concerning for a primary bronchogenic carcinoma, though the absence of correlating findings on the prior comparisons indicates that this abnormality is relatively new. Loculated infection within a bulla is possible, though not favored. Recommend further evaluation with biopsy unless infection is strongly favored clinically in which case short interval imaging follow-up would be necessary. 2. Severe bullous emphysema. 3. New 0.5 cm spiculated nodule at the left lung apex. 4. No adenopathy. CAT - CT ABD & PELVIS W/O IV CONTRAS 1. Technically limited study due to lack of intravenous contrast. 2. No discrete intrahepatic focal abnormality is identified on these nonenhanced images. 3. No CT evidence of any biliary obstruction is present. 4. Small amount of free fluid within the upper abdomen and moderate amount of free fluid within the pelvis, of indeterminate etiology. 5. Approximately 1 cm hyperdense nodule is noted at superior anterolateral cortex of the right kidney, may represent hyperdense cyst. 6. Interval development of trace amount of right-sided pleural effusion since the prior CT of the chest done on 03/20/2017. 7. Extensive diffuse atherosclerotic disease throughout the aorta and its branches. 8. Scoliotic and multilevel degenerative spondylosis. RIGHT UPPER LOBE, LUNG, BIOPSY: NON-SMALL CELL CARCINOMA WITH MARKED TUMOR NECROSIS. SEE COMMENT. COMMENT: This case was reviewed by Dr. Dominic Sparks of [facility] who notes: "The minute focus of viable tumor seen on the provided H&E slide is not present on the immunostained recuts, therefore TTF-1 and p40 are non-contributory. GMS and PAS stains are negative for fungal organisms." This diagnosis was give to Dr. Jean on 03/25/17 at 11:30 AM. Disposition Summary Disposition Principal Diagnosis: Leukemoid reaction Additional Diagnosis: Lung cancer Discharge Disposition: home or self care Discharge Instructions General Discharge Information Code Status: Full Code Patient's Diet: as tolerated Patient's Activity: as tolerated Follow-Up Instructions/Appts: - Please see your PCP within one week of discharge - Please see your human resource officer within one week of discharge. - Please talk to your principal electrical engineer within one week of discharge. - Please talk to them about scheduling the PET scan as soon as possible. - Please see your oncologist with one week of discharge. You have an appointment w/ Dr. Christine and Dr Wheatley on 03/28/17 at 1245 PM. Medications at Discharge Discharge Medications: Continue taking these medications: Fluticasone/Salmeterol (Advair 500-50 Diskus) 500 MCG-50 MCG/DOSE BLST.W.DEV 1 Puff Inhale through mouth TWICE DAILY Qty = 60 Comments: Last Taken: NOT GIVEN IN HOSPITAL Time: Albuterol Sulfate (Proair Hfa) 90 MCG HFA.AER.AD 2 Puff Inhale through mouth EVERY 4-6 HOURS NEEDED as needed for SHORTNESS OF BREATH Qty = 9 Comments: Last Taken: NOT GIVEN IN HOSPITAL (RECEIVED NEBS) Time: Sacubitril/Valsartan (Entresto 97 MG-103 MG Tablet) 97 MG-103 MG TABLET 1 Tablet ORAL TWICE DAILY Qty = 180 Comments: Last Taken: 03/26/17 Time: 9:45 AM Carvedilol (Carvedilol) 6.25 MG TABLET 1 Tablet ORAL TWICE DAILY Qty = 60 Comments: Last Taken: 03/26/17 Time: 9:45 AM Sertraline HCl (Sertraline HCl) 50 MG TABLET 1 Tablet ORAL DAILY Qty = 30 Comments: Last Taken: 03/26/17 Time: 9:45 AM Bupropion HCl (Bupropion HCl Sr) 200 MG TABLET.ER 1 Tablet ORAL TWICE DAILY Qty = 60 Comments: Last Taken: 03/26/17 Time: 9:45 AM Albuterol Sulfate (Albuterol Sulfate) 2.5 MG/3 ML (0.083 %) VIAL.NEB 1 Vial Inhale Solution EVERY 4 HOURS NEEDED as needed for SHORTNESS OF BREATH Instructions: . Comments: Last Taken: 03/26/17 Time: 8:20 AM Copies To: GONZALEZ GARCIA MD Review Statement Documenting Attending: SAIDA HERMAN,JOJO
[2017-03-25 15:30] VITALS: BP 90/58
--- NOTE | 2017-03-25 16:51 | PN- Infect Dx ---
Subjective Subjective: No fever. Occas cough. Hoarse voice. Review of Systems Comments: 12 points reviewed as noted, otherwise negative. Objective Last 24 Hrs of Vital Signs/I&O Vital Signs Date Time Temp Pulse Resp B/P B/P Pulse O2 O2 Flow FiO2 Mean Ox Delivery Rate 03/25 0934 98.0 96 18 94/54 03/25 0857 95 Room Air 03/25 0822 98.0 96 18 90/60 97 Room Air 03/25 0800 96 Room Air Room Air 03/25 0000 97 Room Air 03/24 2247 98.9 105 18 110/60 95 Room Air 03/24 2040 105 110/60 03/24 1856 97 Room Air Room Air 03/24 1717 98.6 96 18 96/54 96 Intake & Output 03/25 1600 03/25 0800 03/25 0000 Intake Total 480 200 600 Output Total Balance 480 200 600 Intake, Oral 480 200 600 Patient 120 lb Weight Physical Exam Other Physical Findings: General Appearance: no apparent distress, comfortable Head: atraumatic, normal appearance Eyes: Bilateral: PERRL, EOMI. Ears, Nose, Throat: normal pharynx Respiratory: normal breath sounds, chest non-tender, no respiratory distress, no wheezes Cardiovascular: regular rate/rhythm, normal peripheral pulses Gastrointestinal: normal bowel sounds, soft, non-tender, no organomegaly Extremities: normal inspection, no edema Neurologic/Psych: awake, alert, oriented x 3 Skin: pale Results Last 24 Hours of Lab Results: Laboratory Tests 03/25 03/25 0640 0600 Chemistry Sodium (137 - 145 mmol/L) 133 L Potassium (3.5 - 5.1 mmol/L) 3.9 Chloride (98 - 107 mmol/L) 94 L Carbon Dioxide (22 - 30 mmol/L) 23 Anion Gap (5 - 16) 16 BUN (9 - 20 mg/dL) 19 Creatinine (0.7 - 1.2 mg/dL) 0.9 Estimated GFR (>60 ml/min) > 60 BUN/Creatinine Ratio (7 - 25 %) 21.1 Uric Acid (3.5 - 8.5 mg/dL) 5.0 C-Reactive Prot, Quant (<1.0 mg/dL) > 9.0 H C-React Prot High Sens (1.0 - 3.0 mg/L) > 15.0 H Hematology CBC w Diff MAN DIFF ORDERED WBC (4.8 - 10.8 /CUMM) 115.2 *H RBC (4.70 - 6.10 /CUMM) 3.47 L Hgb (14.0 - 18.0 G/DL) 10.2 L Hct (42 - 52 %) 30.4 L MCV (80.0 - 94.0 FL) 87.5 MCH (27.0 - 31.0 PG) 29.4 RDW (11.5 - 14.5 %) 14.8 H Plt Count (130 - 400 /CUMM) 444 H MPV (7.4 - 10.4 FL) 8.7 Gran % (42.2 - 75.2 %) 95.7 H Lymphocytes % (20.5 - 51.1 %) 1.9 L Monocytes % (1.7 - 9.3 %) 2.2 Eosinophils % (0 - 5 %) 0.2 Basophils % (0.0 - 2.0 %) 0 L Absolute Granulocytes (1.4 - 6.5 /CUMM) 110.2 H Segmented Neutrophils (42.2 - 75.2 %) 79 H Band Neutrophils (0.0 - 5.0 %) 16 H Absolute Lymphocytes (1.2 - 3.4 /CUMM) 2.2 Lymphocytes (20.5 - 51.1 %) 1 L Monocytes (1.7 - 9.3 %) 4 Absolute Monocytes (0.10 - 0.60 /CUMM) 2.6 H Absolute Eosinophils (0.0 - 0.7 /CUMM) 0.3 Absolute Basophils (0.0 - 0.2 /CUMM) 0 Platelet Estimate (ADEQUATE) ADEQUATE Normocytic RBCs VERIFIED Polychromasia Hypochromic-Microcytic 1+ PUBS MCHC (33.0 - 37.0 G/DL) 33.6 ESR Westergren (0 - 10 MM) 35 H Miscellaneous Flow Cytometry Specimen Pending Last 24 Hours of Nikolai Results: EC #: [id number] ROSALINO: 03/22/17 STATUS: COMP RECD: 03/22/[address]: ANDER WOODWARD MD SOURCE: LW RESPINV ENTR: 03/22/[address]: DAVID HERMAN,LUDMILA SPDESC: LUNG,R MID LINARI,GONZALEZ L ORDERED: LOW RESP INVAS COMMENT: RIGHT LUNG TISSUE CORE RECEIVED. Procedure Result > GRAM STAIN Final 03/23/17-1120 WHITE BLOOD CELLS RARE OTHER NO ORGANISMS SEEN > LOWER RESPIRATORY CULTURE-O.R. Final 03/25/17-1108 NO GROWTH AFTER 3 DAYS Recent Imaging Studies: SERVICE DATE: 03/22/17 EXAM TYPE: RAD - XRY-PORTABLE CHEST XRAY EXAMINATION: CHEST 1 VIEW CLINICAL INFORMATION: Shortness of breath. Lung biopsy. COMPARISON: Same day chest radiograph obtained at 1306 hours. TECHNIQUE: An AP view of the chest was obtained at 2002 hours. FINDINGS: The cardiac silhouette is not enlarged. The mediastinal and hilar contours are unremarkable. There are neither pleural effusions nor pneumothoraces. There is a stable rounded mass within the right apex. The lungs are hyperinflated. The osseous structures are unremarkable. IMPRESSION: Stable right apical mass. No discernible pneumothorax. DICTATED BY: LAURI JOSEPH MD DATE/TIME DICTATED:03/22/172016 SECRETARY BOOKKEEPER:VAL DATE/TIME TRANSCRIBED:03/22/172016 Assessment/Plan Impression: 51-year-old male with cardiomyopathy s/p AICD placement, COPD, tobacco use, and HTN who admitted previous day with: Lung mass; etiology of the lung mass to be determined (S/P CT guided bx; awaiting path and final cx results) COPD exacerbation/clinically improved Leukemoid reaction; myeloproliferative disorder work up; elevated LDH Weight loss, fatigue, and low grade fever [employer] Partial SVC sd Right vocal cord paralysis Hyponatremia (?SIADH) Suggestion: 1. F/u biopsy, flow cytometry and cytogenetics (BCR-ABL, JAK2) results. 2. D/C CTX; cont doxycycline for 7 d (until 03/26/17). 3. Trend CBC, BMP. 4. PET scan planned as OP.
[2017-03-26 00:56] VITALS: BP 86/54
--- NOTE | 2017-03-26 07:15 | PN- Housestaff ---
ANDRE WOODWARD 03/26/17 0715: Subjective Follow-up For: - Lung mass - Leucocytosis Tele-Events Since Last Visit: NSR, HR 89-95 bpm, No overnight tele events. Subjective: Pt was comfortable. continues to have shortness of breath. No chest pain. Remained afebrile, and vitals stable. Arrangements made for Mr Tejada to see Dr. Cerda and Dr. Christine as soon as possible. Review of Systems Constitutional: Reports: see HPI. Objective Last 24 Hrs of Vital Signs/I&O Vital Signs Date Time Temp Pulse Resp B/P B/P Pulse O2 O2 Flow FiO2 Mean Ox Delivery Rate 03/26 0056 98.7 90 18 86/54 95 Room Air 03/26 0000 95 Room Air 03/25 2200 105 104/64 03/25 1855 94 Room Air 03/25 1600 95 Room Air 03/25 1530 99.4 98 18 90/58 95 Room Air 03/25 0934 98.0 96 18 94/54 03/25 0857 95 Room Air 03/25 0822 98.0 96 18 90/60 97 Room Air 03/25 0800 96 Room Air Room Air Intake & Output 03/26 0800 05/02 0000 03/25 1600 Intake Total 100 420 480 Output Total Balance 100 420 480 Intake, IV 20 Intake, Oral 100 400 480 Number 1 Bowel Movements Patient 120 lb Weight Physical Exam General Appearance: No Acute Distress Other Physical Findings: General Exam: AAOx3, No acute distress, Skin: No rashes, no breakdown HEENT: PERRLA, EOMI Neck: Supple, No JVD No cervical lymphadenopathy CVS: Reg Rate, Normal S1,S2, No MGR Resp: Normal air entry, expiratory wheezes. Abdomen: Soft, No tenderness, Normal Bowel Sounds Neuro: Normal Speech, Strength 5/5 b/l x 4 extremities, Sensation intact, CN III -XII NL, Reflexes 2+ Extremities: No cyanosis, pedal edema Current Medications: Current Medications Sig/Yuli Start time Last Medication Dose Route Stop Time Status Admin Acetaminophen 650 MG Q4P PRN 03/24 2100 AC PO Albuterol Sulfate 3 ML TID 03/20 2200 AC 03/25 INH 1855 Budesonide/ 2 PUF BID 03/20 2200 AC 03/25 Formoterol Fumarate INH 215 Bupropion HCl 200 MG BID 03/20 2200 AC 03/25 PO 2157 Carvedilol 6.25 MG BID 03/20 2200 AC 03/25 PO 220 Ceftriaxone Sodium 1,000 MG 1800 03/24 1800 DC 03/25 IV 03/25 230 182 Doxycycline Hyclate 100 MG BID 03/22 2200 AC 03/25 PO 03/26 2300 215 Guaifenesin 600 MG Q12 03/21 1520 AC 03/25 PO 215 Heparin Sodium 5,000 UNIT Q8 03/22 2200 AC 03/26 (Porcine) SC 0647 Ipratropium Severance 2.5 ML TID 03/20 2200 AC 03/25 INH 1855 Sertraline HCl 50 MG DAILY 03/20 1459 AC 03/25 PO 0934 Last 24 Hrs of Lab/Nikolai Results Last 24 Hrs of Labs/Mics: Laboratory Tests 03/26/17 1225: Leukemic Chromosome Anal Pending 03/26/17 0905: CBC w Diff MAN DIFF ORDERED, RBC 3.26 L, MCV 86.1, MCH 28.4, RDW 14.5, MPV 9.0, Gran % 79.6 H, Lymphocytes % 6.8 L, Monocytes % 7.5, Eosinophils % 0, Basophils % 6.1 H, Absolute Granulocytes 107.4 H, Segmented Neutrophils 85 H, Band Neutrophils 14 H, Absolute Lymphocytes 9.2 H, Monocytes 1 L, Absolute Monocytes 10.1 H, Absolute Eosinophils 0, Absolute Basophils 8.2, Platelet Estimate INCREASED, Polychromasia 1+, Hypochromic-Microcytic 1+, Poikilocytosis 1+, PUBS MCHC 33.0 Assessment/Plan Assessment: Mr Tejada is a 51-year-old man with a [id number] smoking history, cardiomyopathy ( dx'ed 2016, s/p AICD), hypertension, chronic bronchitis/ emphysema(not on home oxygen). He is being evaluted for a chief concern of fatigue x 1 month , shortness of breath, fever, cough, voice change x 2 wks. Differential diagnoses: #1 lung mass (NSLC ) #2 leukemoid reaction #3 lung absces Below is the problem list and plan: #1 shortness of breath: Preliminary results from pathology revealed NSLC. Await final results. Intial differential included- lung abscess, leukemoid reaction. Pt has been on ceftriaxone and doxycycline so far. No growth of any organisms in both respiratory and lung abscess cultures so far, making infectious source unlikely now. Dc abx. For NSCLC, it has not been properly staged so far. CT scan chest and abdomen did not reveal any lymphaenopathy. PET scan is scheduled as an outpatient for staging, as infectious source is safely ruled out. Lung cancers are associated w/ leucocytosis(leukemoid reaction is a possible explanation). Reordered flow cytometry and cytogenetics. #2 DVT prophylaxis-Lovenox #3 full code. Problem List: 1. Leukocytosis 2. Lung mass Pain Ratin Pain Location: none Pain Goal: Pain 4 or less Pain Plan: tylenol prn Tomorrow's Labs & Rationales: none Consulting Request: Consulting Specialty: Cardiology SAIDA HERMAN,JOJO 03/26/17 1458: Attending MD Review Statement Attending Statement Attending MD Statement: examined this patient, discuss w/resident/PA/LITHOGRAPHIC PROOFER APPRENTICE, agreed w/resident/PA/LITHOGRAPHIC PROOFER APPRENTICE, discussed with family, reviewed EMR data (avail), discussed with case mgmt, reviewed images, amended to note Attending Assessment/Plan: Patient seen and examined, Feels the same. Still has WOLF. VSS. WBC has increased. D/W ID/Onc. No plan to do inpatient w/u. Will need outpatient PET scan, follow up with Oncology/ CTS. Also Flow cyto and cytogenetics will need to be followed as out patient. Pt will be discharged home today.
[2017-03-26 08:00] VITALS: BP 100/60
--- NOTE | 2017-03-26 08:35 | Patient Discharge Instructions ---
Discharge Instructions General Discharge Information You were seen/treated for: - Lung mass - Elevated wbc count You had these procedures: - lung biospy Special Instructions: - Please see your PCP within one week of discharge - Please see your child care attendant within one week of discharge. - Please talk to your cash applications associate within one week of discharge. - Please talk to them about scheduling the PET scan as soon as possible. - Please see your oncologist with one week of discharge. You have an appointment w/ Dr. Christine and Dr Wheatley on 03/28/17 at 1245 PM. Acute Coronary Syndrome Inclusion Criteria At DC or during hospital stay patient has or had the following: ACS DIAGNOSIS No Discharge Core Measures Meds if any: Prescribed or Continued at Discharge Meds if any: NOT Prescribed or Continued at Discharge Congestive Heart Failure Inclusion Criteria At DC or during hospital stay patient has or had the following: CHF DIAGNOSIS No Discharge Core Measures Meds if any: Prescribed or Continued at Discharge Meds if any: NOT Prescribed or Continued at Discharge Cerebrovascular accident Inclusion Criteria At DC or during hospital stay patient has or had the following: CVA/TIA Diagnosis No Discharge Core Measures Meds if any: Prescribed or Continued at Discharge Meds if any: NOT Prescribed or Continued at Discharge Venous thromboembolism Inclusion Criteria VTE Diagnosis No VTE Type NONE VTE Confirmed by (Test) NONE Discharge Core Measures - Per Current guidelines, there needs to be overlap - treatment for the first 5 days of Warfarin therapy. - If discharged on Warfarin prior to 5 days of - overlap therapy, the patient will need to be - assessed for post discharge needs including - *Post discharge parental anticoagulation - *Warfarin and/or parental anticoagulation education - *Follow up date to check INR post discharge At least 5 days overlap therapy as Inpatient No Meds if any: Prescribed or Continued at Discharge Note: Overlap Therapy is Warfarin and Anticoagulant Meds if any: NOT Prescribed or Continued at Discharge
--- NOTE | 2017-03-26 08:49 | PN- Pulmonary ---
Subjective HPI/Critical Care Issues: Patient status is unchanged. Biopsies felt to be non-small cell lung cancer Objective Current Medications: Current Medications Sig/Yuli Start time Last Medication Dose Route Stop Time Status Admin Acetaminophen 650 MG Q4P PRN 03/24 2100 AC PO Albuterol Sulfate 3 ML TID 03/20 2200 AC 03/26 INH 0819 Budesonide/ 2 PUF BID 03/20 2200 AC 03/25 Formoterol Fumarate INH 2158 Bupropion HCl 200 MG BID 03/20 2200 AC 03/25 PO 2158 Carvedilol 6.25 MG BID 03/20 2200 AC 03/25 PO 2200 Ceftriaxone Sodium 1,000 MG 1800 03/24 1800 DC 03/25 IV 03/25 2300 1821 Doxycycline Hyclate 100 MG BID 03/22 2200 AC 03/25 PO 03/26 2300 215 Guaifenesin 600 MG Q12 03/21 1520 AC 03/25 PO 2158 Heparin Sodium 5,000 UNIT Q8 03/22 2200 AC 03/26 (Porcine) SC 0647 Ipratropium Napavine 2.5 ML TID 03/20 2200 AC 03/26 INH 0819 Sertraline HCl 50 MG DAILY 03/20 1459 AC 03/25 PO 0934 Vital Signs & I&O Last 24 Hrs of Vitals and I&O: Vital Signs Date Time Temp Pulse Resp B/P B/P Pulse O2 O2 Flow FiO2 Mean Ox Delivery Rate 03/26 0839 96 Room Air 03/26 0800 97 Room Air 03/26 0056 98.7 90 18 86/54 95 Room Air 03/26 0000 95 Room Air 03/25 2200 105 104/64 03/25 1855 94 Room Air 03/25 1600 95 Room Air 03/25 1530 99.4 98 18 90/58 95 Room Air 03/25 0934 98.0 96 18 94/54 05/01 0857 95 Room Air Intake & Output 03/26 1600 03/26 0800 03/26 0000 Intake Total 100 420 Output Total Balance 100 420 Intake, IV 20 Intake, Oral 100 400 Number 1 Bowel Movements Exam of his chest continues to show clear lung scott Impression/Plan Impression/Plan Impression/Plan: 51-year-old with history of cardiomyopathy AICD severe bullous emphysema who has biopsy proven lung cancerl etiology of leukemoid reaction is unclear as cultures remain negative. Complete course of antibiotics and arrange for oncology and radiation therapy evaluation. PET scan can be done as outpatient. Recommendations: Patient should have oncology and radiation therapy evaluation set up prior to discharge
[2017-03-26 10:10] LABS: EOSINOPHIL % 0 % (0-5)
[2017-03-26 10:14] LABS: ABSOLUTE BASOPHIL COUNT 8.2 /CUMM (0.0-0.2); ABSOLUTE EOSINOPHIL COUNT 0 /CUMM (0.0-0.7); ABSOLUTE GRANULOCYTE CT 107.4 /CUMM (1.4-6.5); ABSOLUTE LYMPH COUNT 9.2 /CUMM (1.2-3.4); ABSOLUTE MONOCYTE COUNT 10.1 /CUMM (0.10-0.60); BASOPHIL % 6.1 % (0.0-2.0); GRANULOCYTE % 79.6 % (42.2-75.2); HEMATOCRIT 28.1 % (42-52); MEAN CORPUSCULAR HGB 28.4 PG (27.0-31.0); MEAN CORPUSCULAR VOLUME 86.1 FL (80.0-94.0); PLATELET COUNT 453 /CUMM (130-400); RBC DISTRIBUTION WIDTH 14.5 % (11.5-14.5); RED BLOOD CELL CT 3.26 /CUMM (4.70-6.10)
[2017-03-26 10:25] LABS: WHITE BLOOD CELL COUNT 134.9 /CUMM (4.8-10.8)
--- NOTE | 2017-03-26 11:03 | PN- Oncology ---
Subjective Subjective: His breathing is about the same. He has no new symptoms. He has no fever or chills. He has no new pain. He does get short of breath with exertion. He has no trouble with swallowing. Review of Systems Constitutional: Denies: chills, weakness. Cardiovascular: Reports: orthopena. Denies: chest pain, edema. Respiratory: Reports: cough, short of breath, sputum production. Gastrointestinal: Denies: abdominal pain. Genitourinary: Denies: dysuria. Skin: Denies: rash. Neurological/Psychological: Denies: anxiety. Hematologic/Endocrine: Denies: bruising, bleeding. All Other Systems: Reviewed and Negative Objective Vital Signs and I&Os Vital Signs Date Time Temp Pulse Resp B/P B/P Pulse O2 O2 Flow FiO2 Mean Ox Delivery Rate 03/26 0946 100 100/60 03/26 0839 96 Room Air 03/26 0800 97 Room Air 03/26 0800 98.9 93 18 100/60 96 Room Air 03/26 0056 98.7 90 18 86/54 95 Room Air 03/26 0000 95 Room Air 03/25 2200 105 104/64 03/25 1855 94 Room Air 03/25 1600 95 Room Air 03/25 1530 99.4 98 18 90/58 95 Room Air Intake & Output 03/26 1600 03/26 0800 03/26 0000 03/25 1600 03/25 0800 05 0000 Intake Total 100 420 480 200 600 Output Total Balance 100 420 480 200 600 Intake, IV 20 Intake, Oral 100 400 480 200 600 Number 1 Bowel Movements Patient 54.431 kg Weight Physical Exam: General Appearance: no apparent distress, alert, awake, comfortable, thin Ears, Nose, Throat: hoarse voice Respiratory: chest non-tender, no respiratory distress, quiet respiration, decreased breath sounds Cardiovascular: regular rate/rhythm Abdomen: normal bowel sounds, non-tender, no organomegaly Extremities: no edema Neurologic/Psychiatric: awake, alert, oriented x 3 Lymphatic: no anterior cervical pauline Current Medications: Current Medications Sig/Yuli Start time Last Medication Dose Route Stop Time Status Admin Acetaminophen 650 MG Q4P PRN 03/24 2100 AC PO Albuterol Sulfate 3 ML TID 03/20 2200 AC 03/26 INH 0819 Budesonide/ 2 PUF BID 03/20 2200 AC 03/26 Formoterol Fumarate INH 0946 Bupropion HCl 200 MG BID 03/20 2200 AC 03/26 PO 0946 Carvedilol 6.25 MG BID 03/20 2200 AC 03/26 PO 0946 Ceftriaxone Sodium 1,000 MG 1800 03/24 1800 DC 03/25 IV 03/25 2300 182 Doxycycline Hyclate 100 MG BID 03/22 2200 DC 03/25 PO 03/26 2300 2158 Guaifenesin 600 MG Q12 03/21 1520 AC 03/26 PO 0946 Heparin Sodium 5,000 UNIT Q8 03/22 2200 AC 03/26 (Porcine) SC 0647 Ipratropium Martin 2.5 ML TID 03/20 2200 AC 03/26 INH 0819 Sertraline HCl 50 MG DAILY 03/20 1459 AC 03/26 PO 0946 Results Last 24 Hours of Lab Results: Laboratory Tests 03/26 905 Hematology CBC w Diff MAN DIFF ORDERED WBC (4.8 - 10.8 /CUMM) 134.9 *H RBC (4.70 - 6.10 /CUMM) 3.26 L Hgb (14.0 - 18.0 G/DL) 9.3 L Hct (42 - 52 %) 28.1 L MCV (80.0 - 94.0 FL) 86.1 MCH (27.0 - 31.0 PG) 28.4 RDW (11.5 - 14.5 %) 14.5 Plt Count (130 - 400 /CUMM) 453 H MPV (7.4 - 10.4 FL) 9.0 Gran % (42.2 - 75.2 %) 79.6 H Lymphocytes % (20.5 - 51.1 %) 6.8 L Monocytes % (1.7 - 9.3 %) 7.5 Eosinophils % (0 - 5 %) 0 Basophils % (0.0 - 2.0 %) 6.1 H Absolute Granulocytes (1.4 - 6.5 /CUMM) 107.4 H Segmented Neutrophils (42.2 - 75.2 %) 85 H Band Neutrophils (0.0 - 5.0 %) 14 H Absolute Lymphocytes (1.2 - 3.4 /CUMM) 9.2 H Monocytes (1.7 - 9.3 %) 1 L Absolute Monocytes (0.10 - 0.60 /CUMM) 10.1 H Absolute Eosinophils (0.0 - 0.7 /CUMM) 0 Absolute Basophils (0.0 - 0.2 /CUMM) 8.2 Platelet Estimate (ADEQUATE) INCREASED Polychromasia 1+ Hypochromic-Microcytic 1+ Poikilocytosis 1+ PUBS MCHC (33.0 - 37.0 G/DL) 33.0 Assessment/Plan Assessment/Recommendations: Mr. Tejada is a 51-year-old male with cardiomyopathy s/p AICD, HTN, and tobacco usage who presented to [facility] with fatigue, dyspnea, cough, and voice changes. He was noted to have leukocytosis of 104,800 and 6.5 cm right apical lung mass. He has had lung mass biopsied and per prelim report it is non-small cell. It is likely this is NSCLC early stage given normal looking lymph node. The contralateral lesion is small and subcentimeter. He will need to have staging scan with PET to evaluate disease extend. He will also need surgery and likely radiation oncology evaluation. If his only area of disease the the RUL, he will need surgical resection versus definitive radiation. His persistent leukocytosis is concerning for leukemoid reaction but bandemia is concerning. He has no infectious symptoms at the moment. He is afebrile. Cultures have been negative. Biopsy sample has been negative for any infectious etiology for now. The differentials on the CBC has been relatively stable. The WBC is slowly increasing. Flow cytometry has been sent. Cytogenetic should also have been sent. Recommendations: 1. Follow up on biopsy of lung mass, include cultures of sample 2. Follow up cultures 3. Follow up on flow cytometry and cytogenetics 4. PET scan 5. Surgical evaluation 6. Radiation evaluation 7. Follow up as outpatient within 1 week of discharge. Please call [phone] with any questions. Problem List: 1. Leukocytosis 2. Lung mass
--- NOTE | 2017-03-26 14:18 | PN- Infect Dx ---
Subjective Subjective: Records from this hospitalization have been reviewed. He is afebrile without complaints. Objective Last 24 Hrs of Vital Signs/I&O Vital Signs Date Time Temp Pulse Resp B/P B/P Pulse O2 O2 Flow FiO2 Mean Ox Delivery Rate 03/26 0946 100 100/60 05 0839 96 Room Air 03/26 0800 97 Room Air 03/26 0800 98.9 93 18 100/60 96 Room Air 03/26 0056 98.7 90 18 86/54 95 Room Air 03/26 0000 95 Room Air 03/25 2200 105 104/64 05 1855 94 Room Air 03/25 1600 95 Room Air 03/25 1530 99.4 98 18 90/58 95 Room Air Intake & Output 03/26 1600 03/26 0800 03/26 0000 Intake Total 100 420 Output Total Balance 100 420 Intake, IV 20 Intake, Oral 100 400 Number 1 Bowel Movements Physical Exam Other Physical Findings: He appears cachectic but in no acute distress Lungs decreased breath sounds on the right with scattered inspiratory wheezes Heart regular rhythm with no murmur Extremities no cyanosis, clubbing or edema Results Last 24 Hours of Lab Results: Laboratory Tests 03/26 03/26 1225 0905 Hematology CBC w Diff MAN DIFF ORDERED WBC (4.8 - 10.8 /CUMM) 134.9 *H RBC (4.70 - 6.10 /CUMM) 3.26 L Hgb (14.0 - 18.0 G/DL) 9.3 L Hct (42 - 52 %) 28.1 L MCV (80.0 - 94.0 FL) 86.1 MCH (27.0 - 31.0 PG) 28.4 RDW (11.5 - 14.5 %) 14.5 Plt Count (130 - 400 /CUMM) 453 H MPV (7.4 - 10.4 FL) 9.0 Gran % (42.2 - 75.2 %) 79.6 H Lymphocytes % (20.5 - 51.1 %) 6.8 L Monocytes % (1.7 - 9.3 %) 7.5 Eosinophils % (0 - 5 %) 0 Basophils % (0.0 - 2.0 %) 6.1 H Absolute Granulocytes (1.4 - 6.5 /CUMM) 107.4 H Segmented Neutrophils (42.2 - 75.2 %) 85 H Band Neutrophils (0.0 - 5.0 %) 14 H Absolute Lymphocytes (1.2 - 3.4 /CUMM) 9.2 H Monocytes (1.7 - 9.3 %) 1 L Absolute Monocytes (0.10 - 0.60 /CUMM) 10.1 H Absolute Eosinophils (0.0 - 0.7 /CUMM) 0 Absolute Basophils (0.0 - 0.2 /CUMM) 8.2 Platelet Estimate (ADEQUATE) INCREASED Polychromasia 1+ Hypochromic-Microcytic 1+ Poikilocytosis 1+ PUBS MCHC (33.0 - 37.0 G/DL) 33.0 Miscellaneous Leukemic Chromosome Anal Pending Last 24 Hours of Nikolai Results: Right lung biopsy culture March 22 no growth Assessment/Plan Impression: 51-year-old male with cardiomyopathy s/p AICD placement, COPD, tobacco use, and HTN admitted with a lung mass in the right apex status post a CT-guided biopsy 4 days ago, with pathology positive for non-small cell cancer of the lung. The etiology of his persistent leukocytosis is unclear, but it is most likely secondary to the lung malignancy. He has been treated with 5 days of empiric antibiotics for a possible infectious process, though pneumonia seems unlikely and his cultures have remained negative. Suggestion: 1. F/u flow cytometry and cytogenetics 2. Further evaluation and management of his lung cancer per Oncology 3. Continue to follow off antibiotics
[2017-03-26 15:30] VITALS: BP 82/52
== END 2017-03-26 17:20 | DRG 180 ==
LOC: ERH 11:01 → ERHI 12:44 → 1NO 12:44 → ENRESERV 13:39 → 1NO 15:52 → ENPENDDIS 03-26 15:57 → 1NO 03-26 17:20
PROVIDERS: Internal Medicine; Internal Medicine Endocrinology, Diabetes & Metabolism; Internal Medicine Nephrology; Physician Assistant Medical; ADMIT Internal Medicine
PROC: 0BBC3ZX Excision of Right Upper Lung Lobe, Percutaneous Approach, Diagnostic (ICD-10-PCS; principal; 2017-03-22)
DX: C34.11 Malignant neoplasm of upper lobe, right bronchus or lung (principal); J18.9 Pneumonia, unspecified organism; I42.9 Cardiomyopathy, unspecified; I11.0 Hypertensive heart disease with heart failure; I50.9 Heart failure, unspecified; J38.00 Paralysis of vocal cords and larynx, unspecified; J43.9 Emphysema, unspecified; Z68.1 Body mass index [BMI] 19.9 or less, adult; K92.1 Melena; F17.210 Nicotine dependence, cigarettes, uncomplicated; R63.4 Abnormal weight loss; F32.9 Major depressive disorder, single episode, unspecified; Z95.810 Presence of automatic (implantable) cardiac defibrillator; F17.200 Nicotine dependence, unspecified, uncomplicated
CPT/HCPCS: 1NP; 87070; 87075; 87205; 36415; 74176; 77012; 81001; 82436; 87040; 87071; 87086; 87449; 87450; 88184; 88261; 88305; 93005; 93010; 93306; 96374; J0456; J0696; J1644; J2930; J3490; J7040; Q9965

== ENCOUNTER 2017-04-24 11:17 | Observation (INO) | payer OTHER, MEDICARE ==
[~2017-04-24 11:17] MED LIST: ADVAIR 500-501 EACH INH; ALBUTEROL2.5 MG/3 M INH/SOL; BUPROPION HCL200 M2 PO; CARVEDILOL6.25 M1 PO; ENTRESTO 97 MG1 EACH PO; PROAIR HFA8.5 GM INH; SERTRALINE HCL50 MG PO
--- NOTE | 2017-04-24 11:18 | NUR ---
PT ARRIVES IN ER VIA AMBULANCE FROM [facility]. PT WAS AT [facility] RECIEVING CHEMO WHEN HE WENT UNRESPONSIVE AND CODED. ?ALLERGIC REACTION TO MEDICATION. CPR STARTED BY STAFF AT [facility]. PT ARRIVES IN ER WITH EMS WHO HAS CPR IN PROGRESS. PT BEING BAGGED BY HANDCREW FOREMAN. PT IN PEA ON ARRIVAL WITH CPR IN PROGRESS. PT GIVEN 50MG OF IV BENADRYL AT [facility] AND 1MG OF EPI IV.
--- NOTE | 2017-04-24 11:18 | NUR ---
per EMS pt down time approximately 50 minutes prior to arrival
--- NOTE | 2017-04-24 11:20 | NUR ---
PT IN PEA, CPR IN PROGRESS DR. SANDOVAL AT BEDSIDE FOR INTUBATION WITH RT
--- NOTE | 2017-04-24 11:20 | NUR ---
PT INTUBATED BY DR. SANDOVAL WITH SIZE 7.5 TUBE / 24 AT [facility]. RT AT BEDSIDE BAGGING PATIENT SECOND IV PLACED TO LEFT AC (18G). LABS DRAWN AND SENT
--- NOTE | 2017-04-24 11:22 | NUR ---
CPR IN PROGRESS, 1MG OF IV EPI GIVEN PER DR. SANDOVAL ORDER.
--- NOTE | 2017-04-24 11:23 | NUR ---
CPR stopped, pt has positive femoral pulses, BP 132/84, HR 97
--- NOTE | 2017-04-24 11:25 | NUR ---
+pulses, HR 104, bp 110/[address] Redmond pupils fixed and dialted. Family to bereavement room and Dr. Redmond to room to update family. Silo Man present for family support.
--- NOTE | 2017-04-24 11:28 | NUR ---
16F dickey cath placed by RN per Dr. Redmond ordered. No urine output at this time. Dr. Redmond awaree
--- NOTE | 2017-04-24 11:30 | NUR ---
+pulses, hr 90, decreased BP to 100/60, Dr. Redmond aware
--- NOTE | 2017-04-24 11:32 | NUR ---
PANCHITO and at bedside for central line placement.
--- NOTE | 2017-04-24 11:35 | NUR ---
EKG in progress at Bedside. Levophed drip started at 20mcg/min per Dr. Redmond ordered. BP 80/50 HR 80
--- NOTE | 2017-04-24 11:44 | NUR ---
BP 78/51 HR 90
[2017-04-24 11:47] LABS: ABSOLUTE BASOPHIL COUNT 0.1 /CUMM (0.0-0.2); ABSOLUTE EOSINOPHIL COUNT 0.3 /CUMM (0.0-0.7); ABSOLUTE GRANULOCYTE CT 39.3 /CUMM (1.4-6.5); ABSOLUTE MONOCYTE COUNT 0.1 /CUMM (0.10-0.60); BASOPHIL % 0.1 % (0.0-2.0); EOSINOPHIL % 0.6 % (0-5); GRANULOCYTE % 90.1 % (42.2-75.2); HEMATOCRIT 28.2 % (42-52); MEAN CORPUSCULAR HGB 27.7 PG (27.0-31.0); MEAN CORPUSCULAR HGB CONC 31.3 G/DL (33.0-37.0); MEAN CORPUSCULAR VOLUME 88.3 FL (80.0-94.0); MEAN PLATELET VOLUME 7.8 FL (7.4-10.4); PLATELET COUNT 317 /CUMM (130-400); RBC DISTRIBUTION WIDTH 15.5 % (11.5-14.5); RED BLOOD CELL CT 3.19 /CUMM (4.70-6.10)
--- NOTE | 2017-04-24 11:47 | NUR ---
CENTRAL LINE PLACED BY PANCHITO DHILLON AND PANCHITO SANDOVAL TO RIGHT GROIN. BP 80/58 HR 94
--- NOTE | 2017-04-24 11:50 | NUR ---
Central line insertion completed by PANCHITO Reinoso and Dr. Redmond Levophed drip switched from peripheral line to central line in right groin.
[2017-04-24 11:56] LABS: WHITE BLOOD CELL COUNT 43.6 /CUMM (4.8-10.8)
--- NOTE | 2017-04-24 11:56 | NUR ---
CRITICAL TEST RESULTS [id number] LAURI JOHNSON 51 M TESTS AND RESULTS: wbc 43.6 Results received and read back by: SHAWNEE NAPIER Results received date and time: 04/24/17 1156 The following provider was notified of the results, and read the results back: Dr. Redmond Notified date and time: 04/24/17 at 1156
--- NOTE | 2017-04-24 12:01 | NUR ---
Pt placed on vent by RT. Pt suctioned by RT and noted to have bloody sputum. Dr Redmond aware
--- NOTE | 2017-04-24 12:04 | NUR ---
BP 154/90
--- NOTE | 2017-04-24 12:05 | NUR ---
PT NOTED TO HAVE 4 WOUNDS TO COCCYX AREA. EACH WOUND IS APPROXIMATELY THE SIZE OF A NICKEL. TWO OF THE WOUNDS ARE OPEN WITH A SMALL AMOUNT OF YELLOW DISCHARGE. PTS COCCYX IS RED. WOUND NURSE PAGED AND MADE AWARE
--- NOTE | 2017-04-24 12:07 | NUR ---
BP 122/79 Dr. Dan at bedside for eval. Pt noted to be having focal seizures. Dr. Redmond aware and 2mg of IV morphine ordered and given.
--- NOTE | 2017-04-24 12:10 | NUR ---
Urine output of 45cc obtained. Urine sample sent to lab
--- NOTE | 2017-04-24 12:11 | NUR ---
bp 114/70 hr 94 -levophed drip infusing at 20mcg/min xray at bedside for portable xray of chest and tube placement confirmation
--- NOTE | 2017-04-24 12:13 | NUR ---
per Rt vent settings as follows: Resp rate 20 Volume 500 100% Fio2 5 of Peep
--- NOTE | 2017-04-24 12:15 | NUR ---
Dr. Redmond and Dr. Dan at bedside with family.
--- NOTE | 2017-04-24 12:18 | NUR ---
Pt noted to have focal seizure activity dr. redmond aware and at bedside. 1mg of IV Ativan ordered by Dr. Redmond and given.
--- NOTE | 2017-04-24 12:20 | NUR ---
bp 98/[address] and Dr. Dan at bedside. Pt to have head CT to check for edema and hospice consult to be obtained. Family at bedside and stating pt is not DNR and DNI but would not wish to be intubated. Family having ongoing discussion with MDs about plan of care
--- NOTE | 2017-04-24 12:24 | NUR ---
Pt noted to be seizing, pt given additional 1mg of IV ativan Per Dr. Redmond ordered. BP 92/60 HR 92
--- NOTE | 2017-04-24 12:33 | NUR ---
PT FAMILY AT BEDSIDE BP 94/62 HR 92, PT REMAINS INTUBATED , LEVOPHED DRIP INFUSING AT 37.5 ML/HR PT FAMILY STATES THAT THEY WOULD LIKE PT TO REMAIN INTUBATED AT THIS TIME AND WILL DISCUSS THERE OPTIONS FURTHER AT A LATER DATE. PUPILS REMAIN FIXED AND NON REACTIVE.
--- NOTE | 2017-04-24 12:40 | NUR ---
PER DR. LAGUERRE PT TO BE ADMITTED TO ICU UNDER DR. TIMMONS. FAMILY REMAINS AT BEDSIDE WITH PATIENT. SIMONIZER AT BEDSIDE
--- NOTE | 2017-04-24 12:43 | RADIOLOGY REPORT ---
EXAMINATION: XR PORTABLE CHEST CLINICAL INFORMATION: Status post intubation. Lung cancer. COMPARISON: Prior imaging examinations including chest x-ray February 2017. TECHNIQUE: Portable frontal view of the chest was obtained. FINDINGS: Lines and tubes: Endotracheal tube is noted with the tip 6.1 cm above the region of the willow Subcutaneous defibrillator with wire projecting over the midline of the chest. There is patchy bilateral airspace disease throughout with relative sparing of the right lower hemithorax . There is a persistent opacity\E\mass in the right apex as seen on prior imaging examinations essentially unchanged. The cardiac silhouette mediastinum pulmonary vascularity are normal.. IMPRESSION: Endotracheal tube tip 6.1 cm above the region of the willow Patchy bilateral airspace disease with some sparing of the right lower hemithorax. Right apical mass redemonstrated.
--- NOTE | 2017-04-24 12:46 | ED GENERAL ADULT ---
See Addendum History of Present Illness General Chief Complaint: Cardiopulmonary Resuscitation Stated Complaint: BIBA CPR Source: EMS Exam Limitations: unable to give history, physical impairment Allergies Coded Allergies: NO KNOWN ALLERGIES (06/06/13) Reconcile Medications Albuterol Sulfate 2.5 MG/3 ML (0.083 %) VIAL.NEB 1 Vial INH/VIOLETTE Q4P PRN SHORTNESS OF BREATH (Reported) . Albuterol Sulfate (Proair Hfa) 90 MCG HFA.AER.AD 2 PUF INH Q4-6 PRN PRN SHORTNESS OF BREATH (Reported) Bupropion HCl (Bupropion HCl Sr) 200 MG TABLET.ER 1 TAB PO BID MENTAL HEALTH (Reported) Carvedilol 6.25 MG TABLET 1 TAB PO BID HEART (Reported) Fluticasone/Salmeterol (Advair 500-50 Diskus) 500 MCG-50 MCG/DOSE BLST.W.DEV 1 PUF INH BID BREATHING PROBLEMS (Reported) Sacubitril/Valsartan (Entresto 97 MG-103 MG Tablet) 97 MG-103 MG TABLET 1 TAB PO BID HEART (Reported) Sertraline HCl 50 MG TABLET 1 TAB PO DAILY MENTAL HEALTH (Reported) Triage Note: See notes Triage Nurses Notes Reviewed? yes Onset: Abrupt Duration: minute(s): Timing: recent history HPI: 04/24/17 12:32 PM The patient was seen on arrival. 51-year-old man with a history of non-small cell lung cancer, severe COPD, cardiomyopathy laryngeal metastatic disease. He presented to the emergency department in cardiac arrest. He was at the cancer center getting chemotherapy and became pulseless and apneic. CPR was initiated, and they were unable to sustain a pulse. He was in cardiac arrest approximately 30 minutes prior to arrival with CPR. On arrival in the emergency Department his pupils were fixed and dilated and he had no corneal reflexes. CPR was continued and he was intubated by md Procedure Endotracheal intubation with size 7.5 endotracheal tube using the Daryl vision Good equal breath sounds bilaterally postintubation Good color change on the end-tidal CO2 monitor He received epinephrine and regained pulses. He was hypotensive and was started on a Lveophed. The onset of the symptoms were abrupt, the duration was approximately 30-40 minutes prior to arrival, the severity was significant as his symptoms required him to be brought by the ambulance in cardiac arrest (DUSTIN SANDOVAL DO) Vital Signs & Intake/Output Vital Signs & Intake/Output Vital Signs Date Time Temp Pulse Resp B/P B/P Pulse O2 O2 Flow FiO2 Mean Ox Delivery Rate 04/24 1357 92 24 113/76 100 Ventilator 100% 04/24 1338 96.4 90 24 114/72 100 Ventilator 100% 04/24 1319 87 26 98/62 100 Ventilator 100% 04/24 1234 90 100/60 04/24 1232 92 24 94/62 100 Ventilator 100% 04/24 1145 100 04/24 1144 90 14 78/51 100 Ventilator Past History Travel History Traveled to [place] past 21 day No Medical History Any Pertinent Medical History? see below for history Neurological: NONE EENT: NONE Cardiovascular: cardiomyopathy, CHF, defibrillator Respiratory: bronchitis, COPD, emphysema Gastrointestinal: NONE Hepatic: NONE Renal: NONE Musculoskeletal: NONE Psychiatric: NONE Endocrine: NONE Blood Disorders: NONE Cancer(s): NONE THERAPIST OCCUPATIONAL/Reproductive: NONE History of MRSA: No History of VRE: No History of CDIFF: No Influenza Vaccine: 11/25/16 Surgical History Surgical History: non-contributory Psychosocial History Who do you live with Friend What is your primary language [place] Tobacco Use: UN ETOH Use: 6 Illicit Drug Use: UTD Family History Family History, If Any: MOTHER (COPD). Hx Contributory? No (DUSTIN SANDOVAL DO) Review of Systems Review of Systems Constitutional: Reports: no symptoms. EENTM: Reports: no symptoms. Respiratory: Reports: see HPI. Cardiovascular: Reports: no symptoms. GI: Reports: no symptoms. Genitourinary: Reports: no symptoms. Musculoskeletal: Reports: no symptoms. Skin: Reports: no symptoms. Neurological/Psychological: Reports: other (unresponsive). Hematologic/Endocrine: Reports: no symptoms. Immunologic/Allergic: Reports: no symptoms. (DUSTIN SANDOVAL DO) Physical Exam Physical Exam General Appearance: pupils fixed and dilated Head: atraumatic Ears, Nose, Throat: trachea midline Neck: normal inspection Respiratory: poor air entry with bagging Cardiovascular: no pulse Gastrointestinal: non distended Extremities: pedal edema Neurologic/Psych: no motor/sensory deficits (unresponsive) Skin: mottled, pallor Core Measures ACS in differential dx? No CVA/TIA Diagnosis: No Severe Sepsis Present: No Septic Shock Present: No (DUSTIN SANDOVAL DO) Progress Differential Diagnoses I considered the following diagnoses in my evaluation of the patient: [Cardiac arrest, acute myocardial infarction, pneumothorax, tension pneumothorax, anaphylaxis, pulmonary embolism] Initial ED EKG: normal axis (RBBB, ) Prior EKG: changed (DUSTIN SANDOVAL DO) Differential Diagnoses I considered the following diagnoses in my evaluation of the patient: Plan of Care: Orders Procedure Date/time Status ARTERIAL BLOOD GAS (GEN) 04/25 0500 Active XRY-PORTABLE CHEST XRAY 04/25 0500 Active ICU LAB BUNDLE 04/25 0500 Active CBC WITHOUT DIFFERENTIAL 04/25 0500 Active TROPONIN LEVEL 04/25 0000 Active EKG 04/25 0000 Active Nothing by Mouth 04/24 D Active TROPONIN LEVEL 04/24 1800 Active ICU LAB BUNDLE 04/24 1800 Active CBC WITHOUT DIFFERENTIAL 04/24 1800 Active EKG 04/24 1800 Active LACTIC ACID 04/24 1712 Active US-EXT BILAT VENOUS DOPPLER 04/24 1429 Active ARTERIAL BLOOD GAS (GEN) 04/24 1426 Active TRC EVALUATION (GEN) 04/24 1424 Active Pathway - chart 04/24 1424 Active House Staff 04/24 1424 Active CULTURE,URINE 04/24 1424 Active STREP PNEUMO URINARY ANTIGEN 04/24 1424 Active LEGIONELLA URINARY ANTIGEN 04/24 1424 Active LOWER RESPIRATORY CULTURE 04/24 1424 Active BLOOD CULTURE 04/24 1424 Active Wound Care/Dressing 04/24 1423 Active Weight 04/24 1423 Active VTE Mechanical Prophylaxis 04/24 1423 Active Vital Signs 04/24 1423 Active Turn and Reposition 04/24 1423 Active Drains/Tubes 04/24 1423 Active Teach/Educate 04/24 1423 Active Skin Integrity Protocol 04/24 1423 Active Skin/Pressure Ulcer Assess (Sk 04/24 1423 Active Precautions 04/24 1423 Active Pain Treatment and Response 04/24 1423 Active Nutritional Intake, Monitor 04/24 1423 Active Isolation 04/24 1423 Active CIWA 04/24 1423 Active Patient Care Conference 04/24 1423 Active Activity/Ambulation 04/24 1423 Active VIT D 25 HYDROXY 04/24 1412 Active THYROID STIMULATING HORMONE 04/24 1412 Active PROTHROMBIN TIME 04/24 1412 Active MAGNESIUM 04/24 1412 Active LIPASE 04/24 1412 Active LACTIC ACID 04/24 1412 Active FREE T4 04/24 1412 Active FOLIC ACID 04/24 1412 Active CREATINE PHOSPHOKINASE 04/24 1412 Active VITAMIN B12 04/24 1412 Active Code Status 04/24 1400 Active CTA CHEST-PULMONARY EMBOLISM 04/[address] ABD & PELVIS W IV CONTRAST 04/24 1345 Active Patient Data 04/[address] HEAD WO IV CONTRAST 04/[address] in observation 04/24 1247 Active ARTERIAL BLOOD GAS (GEN) 04/24 1230 Complete Intake & Output 04/24 1216 Active URINE DRUGS OF ABUSE 04/24 1212 Complete URINALYSIS 04/24 1212 Complete VENTILATOR PARAMETERS 04/24 1145 Complete TROPONIN LEVEL 04/24 1136 Complete COMPREHENSIVE METABOLIC PANEL 04/24 1136 Complete CBC WITHOUT DIFFERENTIAL 04/24 1136 Complete EKG 04/24 1129 Active VTE Mechanical Prophylaxis 04/24 UNK Active Vital Signs 04/24 UNK Active Restraint- Medical 04/24 UNK Active OGT 04/24 UNK Active Intake & Output 04/24 UNK Active Hemoccult 04/24 UNK Active [place] Coma Scale 04/24 UNK Active Muse, Insertion/Removal/Asses 04/24 UNK Active Current Medications Sig/Yuli Start time Last Medication Dose Stop Time Status Admin Heparin Sodium 5,000 UNIT Q8 04/24 2200 AC (Porcine) Dextrose/Sodium 1,000 ML ONCE ONE 04/24 1430 AC Chloride 04/25 1029 (D5W-1/2 Normal Saline 1000ML) Laboratory Tests 04/24/17 1230: pH 7.07 *L, pCO2 45, pO2 311 H, HCO3 13 L, ABG O2 Sat (Measured) 99.0, P-50 ( Temp Corrected) N, Carboxyhemoglobin 0.7 L, O2 Concentration % 100%, Respiration Rate 20, O2 Delivery Method VENT, Vent Mode AC, Expiratory Pressure 5, Tidal Volume 500, Pressure Support 0, Phlebotomy Draw Site LEFT RADIAL 04/24/17 1212: Urine Opiates Screen < 100.00, Methadone Screen < 40, Barbiturate Screen < 60, Ur Phencyclidine Scrn < 6.00, Amphetamines Screen 398, U Benzodiazepines Scrn < 85, Urine Cocaine Screen < 50, Urine Cannabis Screen < 5.00, Urinalysis MOD H, Urine Color YEL, Urine Clarity CLDY H, Urine pH 6.0, Ur Specific Fox >= 1.030, Urine Protein 100 H, Urine Ketones NEG, Urine Nitrite NEG, Urine Bilirubin NEG, Urine Urobilinogen 0.2, Ur Leukocyte Esterase NEG, Ur Microscopic SEDIMENT EXAMINED, Urine RBC 15-25 H, Urine WBC 3-5 H, Ur Epithelial Cells FEW , Urine Hemoglobin MOD H, Urine Glucose NEG 04/24/17 1140: Anion Gap 22 H, Estimated GFR > 60, BUN/Creatinine Ratio 16.7, Glucose 160 H, Calcium 8.6, Total Bilirubin 0.4, AST 17, ALT 29, Alkaline Phosphatase 278 H, Troponin I < 0.01, Total Protein 5.3 L, Albumin 2.7 L, Globulin 2.6, Albumin/ Globulin Ratio 1.0 L, CBC w Diff MAN DIFF ORDERED, RBC 3.19 L, MCV 88.3, MCH 27.7, RDW 15.5 H, MPV 7.8, Gran % 90.1 H, Lymphocytes % 9.1 L, Monocytes % 0.1 L, Eosinophils % 0.6, Basophils % 0.1, Absolute Granulocytes 39.3 H, Segmented Neutrophils 66, Band Neutrophils 16 H, Absolute Lymphocytes 4.0 H, Lymphocytes 14 L, Monocytes 3, Absolute Monocytes 0.1 L, Eosinophils 1, Absolute Eosinophils 0.3, Absolute Basophils 0.1, Platelet Estimate ADEQUATE, Hypochromic-Microcytic 1+, Anisocytosis 1+, PUBS MCHC 31.3 L Microbiology 04/24 1424 URINE ROUT: Legionella Antigen - ORD 04/24 1424 URINE ROUT: Streptococcus pneumoniae Antigen (M - ORD 04/24 1424 URINE ROUT: Urine Culture - ORD 04/24 1424 LOWER RESP: Respiratory Culture - ORD 04/24 1424 LOWER RESP: Gram Stain - ORD 04/24 1424 BLOOD: Blood Culture - ORD 04/24 1424 BLOOD: Blood Culture - ORD Departure Departure Disposition: STILL A PATIENT Condition: Stable Clinical Impression Primary Impression: Cardiac arrest Referrals: GONZALEZ GARCIA (PCP/Family) Departure Forms: General Discharge Information Observation Note Spoke With: COLE VASQUEZ MD Physician Advisor Notified: COLE VASQUEZ MD Place Patient In: Non-ED OBS Care Area Rationale for Observation: My rational for observation is as follows the patient is being sent observation to the ICU under Dr. Milan's service. The patient was placed on a ventilator. A right femoral line was placed under my direct supervision by the PANCHITO. There are no complications. Chest x-ray confirmed endotracheal tube position. Labs were ordered. The prognosis was discussed with the family both with me in by Dr. Dan. It was the patient;'s wishes that the he not have artificial ventilation per the family. He is therefore being placed in the ICU under observation, hospice will evaluate the patient (DUSTIN SANDOVAL DO) Procedures Central Line Central Line Lumen: triple Central Line Procedure: Yes: bentadine prep?, sterile drapes applied, sterile dressing applied. Central Line Position: femoral (R) Anesthesia: lidocaine 1% CC's of Anesthesia: 10 Complications: none Central Line Post Position: sutured, good blood return (JACQUIE FLANAGAN,KIMBERLY) Critical Care Note Critical Care Note Critical Care Time: 75-104 min Total CPR Time (mins): 15 (MINUTES) (DUSTIN SANDOVAL DO)
--- NOTE | 2017-04-24 13:00 | NUR ---
LEASE BUYER IN ROOM WITH FAMILY AND PT AT THIS TIME
--- NOTE | 2017-04-24 13:04 | NUR ---
LAST RIGHTS GIVEN BY FATHER SUSANNE
--- NOTE | 2017-04-24 13:20 | NUR ---
HOUSE STAFF IN ROOM TALKING WITH FAMILY
--- NOTE | 2017-04-24 13:32 | NUR ---
BED ASSIGNMENT 111
--- NOTE | 2017-04-24 13:40 | NUR ---
DR SALCEDO AT BEDSIDE TO DISCUSS PLAN OF CARE WITH FAMILY, BP 114/72, CONTINUES ON LEVAPHED AT 37.5 ML/HR, NO CHANGE IN CONDITION, HR 90 ON MONITOR
--- NOTE | 2017-04-24 13:48 | NUR ---
TRANSPORT BOOKED AND RESP CALLED
--- NOTE | 2017-04-24 13:56 | NUR ---
REPORT CALLED TO ED IN THE UNIT. PT TO GO TO CT SCAN WITH RN FIRST AND THEN TO ICU ROOM 111.
--- NOTE | 2017-04-24 13:57 | NUR ---
bp 113/76 levophed drip infusing at 20mcg /min per order. per dr nicole drip to remain at the 20mcg/min at this time. FAMILY STEPPED OUT AND WILL MEET PT UPSTAIRS IN THE UNIT. FAMILY MADE AWARE THAT PT WOULD BE GOING TO CT SCAN PRIOR TO FLOOR
--- NOTE | 2017-04-24 14:02 | History & Physical ---
SUNIL HERMAN,MANJEET 04/24/17 1401: General Information and HPI MD Statement: I have seen and personally examined LAURI JOHNSON and documented this H&P. The patient is a 51 year old M who presented with a patient stated chief complaint of [status post cardiac arrest]. Source of Information: family, old records Exam Limitations: no limitations History of Present Illness: 51-year-old gentleman with a recent history and non-small cell lung cancer diagnosed 3 weeks ago getting daily radiation therapy, AICD placement in Jul 2016, chemotherapy every Saturday presented to the emergency room status post cardiac arrest the cancer center. Patient was receiving chemotherapy and subsequently went into put PEA. CPR was performed for about 30 minutes subsequently the patient was brought to the emergency room where he was intubated and found to be in PEA, CPR was further performed with return of a pulse. Family present at bedside provided the whole history. At present they want the patient to be a full code and would like to further discuss his CODE STATUS after preliminary blood work and CAT scans have been done. He is currently intubated and has a right femoral line placed by the ER provider. Currently on levophed and 20 g. Allergies/Medications Allergies: Coded Allergies: NO KNOWN ALLERGIES (06/06/13) Home Med list Albuterol Sulfate 2.5 MG/3 ML (0.083 %) VIAL.NEB 1 Vial INH/VIOLETTE Q4P PRN SHORTNESS OF BREATH (Reported) . Albuterol Sulfate (Proair Hfa) 90 MCG HFA.AER.AD 2 PUF INH Q4-6 PRN PRN SHORTNESS OF BREATH (Reported) Bupropion HCl (Bupropion HCl Sr) 200 MG TABLET.ER 1 TAB PO BID MENTAL HEALTH (Reported) Carvedilol 6.25 MG TABLET 1 TAB PO BID HEART (Reported) Fluticasone/Salmeterol (Advair 500-50 Diskus) 500 MCG-50 MCG/DOSE BLST.W.DEV 1 PUF INH BID BREATHING PROBLEMS (Reported) Sacubitril/Valsartan (Entresto 97 MG-103 MG Tablet) 97 MG-103 MG TABLET 1 TAB PO BID HEART (Reported) Sertraline HCl 50 MG TABLET 1 TAB PO DAILY MENTAL HEALTH (Reported) Past History Travel History Traveled to [place] past 21 day No Medical History Neurological: NONE EENT: NONE Cardiovascular: cardiomyopathy, CHF, defibrillator Respiratory: bronchitis, COPD, emphysema Gastrointestinal: NONE Hepatic: NONE Renal: NONE Musculoskeletal: NONE Psychiatric: NONE Endocrine: NONE Blood Disorders: NONE Cancer(s): NONE SEED BUYER/Reproductive: NONE History of MRSA: No History of VRE: No History of CDIFF: No Isolation History: Standard Influenza Vaccine: 11/25/16 Surgical History Surgical History: non-contributory ECHO Results (as available) Date of last Echo 03/20/17 EF% 55 Past Family/Social History Family History Relations & Conditions if any MOTHER (COPD). Psychosocial History ETOH Use: 6 Illicit Drug Use: UTD Living Will? no Functional Ability ADLs Independent: dressing, eating, toileting, bathing. Ambulation: independent IADLs Independent: shopping, housework, finances, food prep, telephone, transportation , medication admin. Review of Systems Review of Systems Constitutional: Reports: see HPI. Exam & Diagnostic Data Last 24 Hrs of Vital Signs/I&O Vital Signs Date Time Temp Pulse Resp B/P B/P Pulse O2 O2 Flow FiO2 Mean Ox Delivery Rate 04/24 1357 92 24 113/76 100 Ventilator 100% 04/24 1338 96.4 90 24 114/72 100 Ventilator 100% 04/24 1319 87 26 98/62 100 Ventilator 100% 04/24 1234 90 100/60 04/24 1232 92 24 94/62 100 Ventilator 100% 04/24 1145 100 04/24 1144 90 14 78/51 100 Ventilator Intake & Output 04/24 1600 04/24 0800 04/24 0000 Intake Total 2000 Output Total 45 Balance 195 Intake, IV 1999 Output, Urine 45 Physical Exam General Appearance intubated Skin No Rashes, No Breakdown HEENT Atraumatic, very sluggish reaction to light, almost fixed at 2 mm b/l Cardiovascular Regular Rate, Normal S1, Normal S2 Lungs Clear to Auscultation, Normal Air Movement Abdomen Normal Bowel Sounds, No Tenderness Extremities right femoral line Last 24 Hrs of Labs/Nikolai: Laboratory Tests 04/24/17 1230: pH 7.07 *L, pCO2 45, pO2 311 H, HCO3 13 L, ABG O2 Sat (Measured) 99.0, P-50 ( Temp Corrected) N, Carboxyhemoglobin 0.7 L, O2 Concentration % 100%, Respiration Rate 20, O2 Delivery Method VENT, Vent Mode AC, Expiratory Pressure 5, Tidal Volume 500, Pressure Support 0, Phlebotomy Draw Site LEFT RADIAL 04/24/17 1212: Urine Opiates Screen < 100.00, Methadone Screen < 40, Barbiturate Screen < 60, Ur Phencyclidine Scrn < 6.00, Amphetamines Screen 398, U Benzodiazepines Scrn < 85, Urine Cocaine Screen < 50, Urine Cannabis Screen < 5.00, Urinalysis MOD H, Urine Color YEL, Urine Clarity CLDY H, Urine pH 6.0, Ur Specific [place] >= 1.030, Urine Protein 100 H, Urine Ketones NEG, Urine Nitrite NEG, Urine Bilirubin NEG, Urine Urobilinogen 0.2, Ur Leukocyte Esterase NEG, Ur Microscopic SEDIMENT EXAMINED, Urine RBC 15-25 H, Urine WBC 3-5 H, Ur Epithelial Cells FEW , Urine Hemoglobin MOD H, Urine Glucose NEG 04/24/17 1140: Anion Gap 22 H, Estimated GFR > 60, BUN/Creatinine Ratio 16.7, Glucose 160 H, Calcium 8.6, Total Bilirubin 0.4, AST 17, ALT 29, Alkaline Phosphatase 278 H, Troponin I < 0.01, Total Protein 5.3 L, Albumin 2.7 L, Globulin 2.6, Albumin/ Globulin Ratio 1.0 L, CBC w Diff MAN DIFF ORDERED, RBC 3.19 L, MCV 88.3, MCH 27.7, RDW 15.5 H, MPV 7.8, Gran % 90.1 H, Lymphocytes % 9.1 L, Monocytes % 0.1 L, Eosinophils % 0.6, Basophils % 0.1, Absolute Granulocytes 39.3 H, Segmented Neutrophils 66, Band Neutrophils 16 H, Absolute Lymphocytes 4.0 H, Lymphocytes 14 L, Monocytes 3, Absolute Monocytes 0.1 L, Eosinophils 1, Absolute Eosinophils 0.3, Absolute Basophils 0.1, Platelet Estimate ADEQUATE, Hypochromic-Microcytic 1+, Anisocytosis 1+, PUBS MCHC 31.3 L Diagnostic Data EKG Results Rate 100, CA 180, QRS 160, QTC 537 New right bundle branch block CXR Results PATIENT: LAURI JOHNSON PRESENT AGE: 51 PATIENT ACCOUNT NO: [id number] : 63 LOCATION: [facility] ORDERING PHYSICIAN: DUSTIN SANDOVAL DO SERVICE DATE: 04/24/17-1203 EXAM TYPE: RAD - XRY-PORTABLE CHEST XRAY EXAMINATION: XR PORTABLE CHEST CLINICAL INFORMATION: Status post intubation. Lung cancer. COMPARISON: Prior imaging examinations including chest x-ray February 2017. TECHNIQUE: Portable frontal view of the chest was obtained. FINDINGS: Lines and tubes: Endotracheal tube is noted with the tip 6.1 cm above the region of the willow Subcutaneous defibrillator with wire projecting over the midline of the chest. There is patchy bilateral airspace disease throughout with relative sparing of the right lower hemithorax . There is a persistent opacity\E\mass in the right apex as seen on prior imaging examinations essentially unchanged. The cardiac silhouette mediastinum pulmonary vascularity are normal.. IMPRESSION: Endotracheal tube tip 6.1 cm above the region of the willow Patchy bilateral airspace disease with some sparing of the right lower hemithorax. Right apical mass redemonstrated. DICTATED BY: LAURI ALFARO MD DATE/TIME DICTATED:04/24/171232 CALL CENTER SUPPORT REPRESENTATIVE:VAL DATE/TIME TRANSCRIBED:04/24/171232 CONFIDENTIAL, DO NOT COPY WITHOUT APPROPRIATE AUTHORIZATION. <Electronically signed in Other Vendor System> SIGNED BY: LAURI ALFARO MD 04/24 2466 Assessment/Plan Assessment: Assessment- 1. Status post cardiac pulmonary arrest requiring intubation, mechanical ventilation and pressor support 2. Shock requiring pressors, likely secondary to cardiac arrest 3. Leukocytosis with bandemia, possibly secondary to new onset infection versus known lung cancer versus reactive to chemotherapy and radiation 4. Lactic acidosis currently on mechanical ventilation 5. Hyperkalemia 6. Anion gap lactic acidosis, likely metabolic 7. Bundle branch block, new 8. Elevated QTc interval, new 9. Newly diagnosed non-small cell lung cancer 3 weeks ago requiring daily radiation therapy and chemotherapy every Saturday (medication unknown) 10. Known COPD and emphysema 11. Known smoking history 12. History of hypertension 13. Known anxiety and depression Plan- * Place in observation to the ICU * Vitals per protocol * Continue levophed for now, titrate as blood pressure allows * Trend troponin and EKG * Echocardiogram * Cardiology consult * Add-on magnesium, phosphorus, lipase, thyroid studies, B12, folic acid, vitamin D * Check lactic acid * Repeat ABG, adjust vent settings accordingly, consider bicarbonate drip if needed * CAT scan of the head, chest pulmonary embolism protocol (given new right bundle branch block), abdomen and pelvis * Ultrasound Doppler of the bilateral lower extremities * Check labs every 6 hours * Neurology and hematology/oncology consultations * Propofol for sedation * Avoid QTC prolonging medications * Start on Unasyn if CAT scan suggestive of antibiotics * May need to consider anticoagulation if he in fact does have a DVT/PE * Continue all support for now * Soft wrist restraints, bilateral * Muse catheter placement * Nothing by mouth for now * Provide adequate analgesia * TRC evaluation and nebs * Full code for now An extensive goals of care meeting was held with the family (girlfriend, father, brother, [id number], sister) Ezio Milan MD and myself. For now they wanted to be full code they do understand that his prognosis is guarded and would like to decide about goals of care once more lab work and radiology is available to us. Until then the patient is to be full code. As Ranked By This Provider Problem List: 1. Cardiac arrest Core Measures/Miscellaneous Acute Coronary Syndrome ACS Diagnosis: No Cerebrovascular Accident CVA/TIA Diagnosis: No Congestive Heart Failure CHF Diagnosis: No Venous Thromboembolism VTE Risk Factors: Age > 40 No [facility] VTE prophylaxis d/t: No contraindications No VTE Pharm Prophylaxis d/t: No contraindications VTE Diagnosis: No VTE Type: NONE VTE Confirmed by (Test): NONE Severe Sepsis Severe Sepsis Present: No Septic Shock Septic Shock Present: No Miscellaneous Documentation Attending Case Discussed With: EZIO MILAN MD Primary Care Physician: GONZALEZ GARCIA Patient sees these Specialists Dr. Oral Chapa Level of Patient Care: Critical Care (CRI) Resident Review Statement Resident Statement: examined this patient, discussed with regulatory intern EZIO MILAN MD 04/24/17 1434: Attending MD Review Statement Attending Statement Attending MD Statement: examined this patient, discuss w/resident/PA/RADIATION THERAPIST, agreed w/resident/PA/RADIATION THERAPIST, discussed with family, reviewed EMR data (avail), discussed with nursing, discussed with case mgmt, reviewed images, amended to note Attending Assessment/Plan: Ezio Galdamez M.D. have examined this patient, reviewed available EMR data, personally reviewed images, discussed with resident/PA/RADIATION THERAPIST, discussed management plan with housestaff and nursing staff, discussed managment plan all of healthcare providers, discussed management plan with patient and/or family, agreed with resident/PA/RADIATION THERAPIST. The past history and parts of the chart have been autopopulated. Impression 51 year old man * CPR/PEA arrest * respiratory failure * metabolic acidosis * unresponsiveness * shock - likely cardiogenic, we will treat in the meantime for possible septic shock given immunocompromised state * lung cancer Plan Respiratory -cont mechanical ventilation -monitor abg, cxr -unable to get cta at this time given unstable condition ID -broad coverage with abx at this time, will tailor abx with clinical course -panculture CVS -ECHO -cardiology consultation -hemodynamic monitoring -levophed Heme -coags -monitor h/h -f/u CT head Metabolic -repeat ABG -monitor ins/outs -creatinine -electrolytes Alimentary -NPO Neuro -neurology input -f/u ct head DVT prophylaxis at all times Long discussion held with family memebers including father and Juan Manuel (Girlfriend ) who is the appointmented pianos and organs salesperson. TTS 65 min Assessment- 1. Status post cardiac pulmonary arrest requiring intubation, mechanical ventilation and pressor support 2. Shock requiring pressors, likely secondary to cardiac arrest 3. Leukocytosis with bandemia, possibly secondary to new onset infection versus known lung cancer versus reactive to chemotherapy and radiation 4. Lactic acidosis currently on mechanical ventilation 5. Hyperkalemia 6. Anion gap lactic acidosis, likely metabolic 7. Bundle branch block, new 8. Elevated QTc interval, new 9. Newly diagnosed non-small cell lung cancer 3 weeks ago requiring daily radiation therapy and chemotherapy every Saturday (medication unknown) 10. Known COPD and emphysema 11. Known smoking history 12. History of hypertension 13. Known anxiety and depression Plan- * Admit to the ICU * Vitals per protocol * Continue levophed for now, titrate as blood pressure allows * Trend troponin and EKG * Echocardiogram * Cardiology consult * Add-on magnesium, phosphorus, lipase, thyroid studies, B12, folic acid, vitamin D * Check lactic acid * Repeat ABG, adjust vent settings accordingly, consider bicarbonate drip if needed * CAT scan of the head, chest pulmonary embolism protocol (given new right bundle branch block), abdomen and pelvis * Ultrasound Doppler of the bilateral lower extremities * Check labs every 6 hours * Neurology and hematology/oncology consultations * Propofol for sedation * Avoid QTC prolonging medications * Start on Unasyn if CAT scan suggestive of antibiotics * May need to consider anticoagulation if he in fact does have a DVT/PE * Continue all support for now * Soft wrist restraints, bilateral * Muse catheter placement * Nothing by mouth for now * Provide adequate analgesia * TRC evaluation and nebs * Full code for now An extensive goals of care meeting was held with the family (girlfriend, father, brother, [id number], sister) Ezio Milan MD and myself. For now they wanted to be full code they do understand that his prognosis is guarded and would like to decide about goals of care once more lab work and radiology is available to us. Until then the patient is to be full code.
--- NOTE | 2017-04-24 14:15 | Admission Certification ---
Admission Certification Certification Statement - As attending physician, I certify that at the time of - admission, based on clinical presentation, severity of - symptoms, need for further diagnostic testing and - therapeutic interventions, and risk of adverse outcomes - without in-hospital treatment, in my clinical assessment, - this patient requires an acute hospital stay for a minimum - of two nights or longer. I have also considered psychsocial - factors such as support system, advanced age, financial - issues, cognitive issues, and failed out-patient treatments, - past re-admission history, safety of patient, and lack of - compliance as applicable. Specific rationale supporting this admission is: CPR, lung cancer, intubated, ICU level of care.
--- NOTE | 2017-04-24 14:56 | NUR ---
PT TO CT SCAN VIA STRETCHER WITH THIS NURSE,2 RESP THERAPIST, PT NOTED TO SEIZE WELL IN CT SCAN, MEDICATED WITH 2 MG IV ATIVAN, PT IMPLANTED DEFIBRILATOR FIRED X [address] LEVOPHED DRIP AT 20MCG /MIN, BP MANUAL 108/70 HR 92. PT TO ICU 111
[2017-04-24 15:00] VITALS: BP 122/88
--- NOTE | 2017-04-24 15:09 | CT SCAN REPORT ---
EXAMINATION: CT HEAD WITHOUT CONTRAST CLINICAL INFORMATION: Status post cardiac arrest. Evaluate for cerebral edema. COMPARISON: Prior CT had 04/04/2017. TECHNIQUE: Contiguous axial imaging was performed from the skull base to vertex without intravenous administration of contrast. DLP: 634 mGy-cm FINDINGS: There is no evidence of acute intracranial hemorrhage or territorial infarction. No abnormal mass effect or midline shift is seen. [place] to white matter differentiation is well preserved. No extra-axial fluid collections are identified. The ventricles are normal in size. There is no abnormal attenuation within the brain parenchyma. The osseous structures and soft tissues are normal. There is a small air-fluid level noted in the right maxillary sinus decreased compared to prior. There is a small air-fluid level in the left maxillary sinus and new compared to prior. The mastoid air cells are normal. IMPRESSION: No acute intracranial pathology. No evidence for cerebral edema. Small fluid levels in the maxillary sinus is slightly smaller on the right than previous but new on the left
[2017-04-24 15:42] LABS: PT 16.2 SEC (9.4-12.5)
--- NOTE | 2017-04-24 15:52 | CT SCAN REPORT ---
EXAMINATION: CT CHEST, ABDOMEN AND PELVIS WITHOUT CONTRAST CLINICAL INFORMATION: New right bundle branch block. Status post cardiac arrest. COMPARISON: CT of chest 03/20/2017. CT-guided lung biopsy 03/22/2017. PET/CT 04/02/2017. CT abdomen and pelvis 03/22/2017. Portable chest 04/24/2017. TECHNIQUE: Multidetector volumetric CT imaging of the chest, abdomen and pelvis was performed. Coronal and sagittal reformatted images are performed at CT scanner. DLP: 401.92 mGy-cm. FINDINGS: Patient was imaged with arms at the side which causes artifact. CT CHEST: Lungs: Severe emphysematous changes of lungs. There is dense consolidation at the left lower lobe. Patchy airspace disease in dependent right lower lobe. There is also patchy consolidated and interstitial airspace disease at both upper lobes, left greater than right. The rounded mass at the medial right lung apex which was previously biopsied remains present. This measures 6.4 cm transverse. Mediastinum: Tracheostomy tube in place. Soft tissue density in the anterior superior mediastinum inseparable from the right apical mass. Shotty lymph nodes in the pretracheal retrovascular space and AP window. Pleura: Small right and left pleural effusion layering dependently. Axilla: Generator seen at the left side of the chest. No axillary significant lymphadenopathy. CT ABDOMEN AND PELVIS: LIVER, GALLBLADDER, AND BILIARY TREE: The liver is normal in size, shape, and attenuation. No focal hepatic lesion or biliary ductal dilatation is present. The gallbladder is unremarkable with no evidence of radiopaque gallstones, gallbladder wall thickening, or obvious pericholecystic inflammatory changes. PANCREAS: No acute change of the pancreas. No mass. No pancreatic duct dilatation. SPLEEN: Spleen normal in size and contour. No focal lesion. ADRENAL GLANDS: Adrenal glands are normal in size. No focal mass. KIDNEYS AND URETERS: The kidneys are normal in size, shape, and attenuation. No hydronephrosis, hydroureter, or calculi seen. No perinephric stranding. BLADDER: Muse catheter within the bladder. Bladder is empty. GASTROINTESTINAL TRACT: Gaseous distention of large, small-bowel loops. Scattered air-fluid levels in the small-bowel loops. No transition point. Air-fluid level also seen in mildly prominent cecum, ascending colon. The descending colon is decompressed. Bowel pattern more suggestive of ileus. The appendix is not seen. MESENTERY: Large volume of abdominal ascites present. ABDOMINAL WALL: No significant hernia is appreciated. LYMPH NODES: Assessment of the retroperitoneum limited by lack of oral and IV contrast and presence of the ascites. No bulky lymphadenopathy. VASCULAR: Atherosclerotic vascular wall calcifications of aorta and iliac arteries. Calcification of the femoral arteries. Right iliac venous catheter with the catheter tip at the right common iliac vein from a right groin approach. PELVIC VISCERA: Unremarkable OSSEOUS STRUCTURES: Degenerative spondylosis of the spine. Levoscoliosis of lumbar spine with marked disc height narrowing, endplate spurs and subchondral sclerosis of bone at the L1-L2 disc level. IMPRESSION: 1. Persistent mass lesion at right lung apex. 2. New airspace disease in both lungs. 3. Small bilateral pleural effusions. 4. Large volume of abdominal ascites. 5. Air-fluid levels in small-bowel loops and right colon, bowel pattern more suggestive of ileus than small-bowel obstruction.
--- NOTE | 2017-04-24 16:52 | Cons- Cardiology ---
General Information and HPI Consulting Request Date of Consult: 04/24/17 Requested By: MANUEL SALCEDO MD Reason for Consult: Cardiopulmonary arrest. Source of Information: old records Exam Limitations: not alert/orientated, clinical condition, physical impairment History of Present Illness: Mr. Bruno Tejada is a 51-year-old male with a long-standing history of heavy tobacco use, COPD, pulmonary nodules, recently diagnosed non-small cell lung carcinoma, s/p radiation therapy, ongoing chemotherapy and a severe nonischemic cardiomyopathy, s/p cardiac catheterization that revealed nonobstructive coronary artery disease, for which he was initially placed on a LifeVest and who subsequently underwent implantation of a Volo Broadband, Emblem S-ICD at [facility] 07/17/2016 who we are asked to evaluate and help manage after he had a cardiopulmonary arrest at the cancer center that required ACLS/ intubation for PEA, etc. There was some concern at his defibrillator was inappropriately firing as he displayed "spasms", however, he appeared to be in sinus rhythm with only a mild IVCD on monitoring without any evidence of either ATP or defibrillations. The suspicion is that he may be having seizure activity and this is being aggressively managed. Allergies/Medications Allergies: Coded Allergies: NO KNOWN ALLERGIES (06/06/13) Home Med List: Albuterol Sulfate 2.5 MG/3 ML (0.083 %) VIAL.NEB 1 Vial INH/VIOLETTE Q4P PRN SHORTNESS OF BREATH (Reported) . Albuterol Sulfate (Proair Hfa) 90 MCG HFA.AER.AD 2 PUF INH Q4-6 PRN PRN SHORTNESS OF BREATH (Reported) Bupropion HCl (Bupropion HCl Sr) 200 MG TABLET.ER 1 TAB PO BID MENTAL HEALTH (Reported) Carvedilol 6.25 MG TABLET 1 TAB PO BID HEART (Reported) Fluticasone/Salmeterol (Advair 500-50 Diskus) 500 MCG-50 MCG/DOSE BLST.W.DEV 1 PUF INH BID BREATHING PROBLEMS (Reported) Sacubitril/Valsartan (Entresto 97 MG-103 MG Tablet) 97 MG-103 MG TABLET 1 TAB PO BID HEART (Reported) Sertraline HCl 50 MG TABLET 1 TAB PO DAILY MENTAL HEALTH (Reported) Review of Systems Review of Systems: Unobtainable, as patient's intubated. 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 Psychosocial History ETOH Use: 6 Illicit Drug Use: UTD Living Will? no Functional Ability ADLs Independent: dressing, eating, toileting, bathing. Ambulation: independent IADLs Independent: shopping, housework, finances, food prep, telephone, transportation , medication admin. ECHO Results (as available) Date of last Echo 03/20/17 EF% 55 Exam & Diagnostic Data Vital Signs and I&O Vital Signs Date Time Temp Pulse Resp B/P B/P Pulse O2 O2 Flow FiO2 Mean Ox Delivery Rate 04/24 1508 100 04/24 1435 92 108/70 04/24 1357 92 24 113/76 100 Ventilator 100% 04/24 1338 96.4 90 24 114/72 100 Ventilator 100% 04/24 1319 87 26 98/62 100 Ventilator 100% 04/24 1234 90 100/60 04/24 1232 92 24 94/62 100 Ventilator 100% 04/24 1145 100 04/24 1144 90 14 78/51 100 Ventilator Intake & Output 04/24 1600 04/24 0800 04/24 0000 04/23 1600 04/23 0800 04/23 0000 Intake Total 2000 Output Total 45 Balance 1955 Intake, IV 2000 Output, Urine 45 Physical Exam: Well-developed, pale appearing middle-aged male who is intubated and unresponsive. Vital signs: See above. HEENT: Normocephalic, atraumatic, EOMI, slightly dry mucous membranes. Neck: No JVD, no bruits. Lungs: Decreased breath sounds bilaterally. Heart: S1, S2 with no murmur gallop or rub appreciated. PMI not well felt. Abdomen: Soft, nontender, positive bowel sounds. Extremities: No edema. Labs/Nikolai Results: Laboratory Tests 04/24 04/24 1510 1230 Blood Gas pH (7.35 - 7.45 PH) 7.07 *L pCO2 (35 - 45 TORR) 45 pO2 (80 - 100 TORR) 311 H HCO3 (21 - 28 MEQ/L) 13 L ABG O2 Sat (Measured) (>96.0 %) 99.0 P-50 (Temp Corrected) N Carboxyhemoglobin (1.5 - 5.0 %) 0.7 L O2 Concentration % 100% Respiration Rate (BPM) 20 O2 Delivery Method VENT Vent Mode AC Expiratory Pressure (CMH2O/P) 5 Tidal Volume (CC) 500 Pressure Support (CMH2O/P) 0 Chemistry Lactic Acid (0.7 - 2.1 mmol/L) 1.6 Coagulation PT (9.4 - 12.5 SEC) 16.2 H INR (0.90 - 1.17) 1.55 H Miscellaneous Phlebotomy Draw Site LEFT RADIAL 04/24 04/24 1212 1140 Chemistry Sodium (137 - 145 mmol/L) 139 Potassium (3.5 - 5.1 mmol/L) 5.3 H Chloride (98 - 107 mmol/L) 103 Carbon Dioxide (22 - 30 mmol/L) 14 L Anion Gap (5 - 16) 22 H BUN (9 - 20 mg/dL) 15 Creatinine (0.7 - 1.2 mg/dL) 0.9 Estimated GFR (>60 ml/min) > 60 BUN/Creatinine Ratio (7 - 25 %) 16.7 Glucose (65 - 99 mg/dL) 160 H Calcium (8.4 - 10.2 mg/dL) 8.6 Phosphorus (2.5 - 4.5 mg/dL) 7.4 H Magnesium (1.6 - 2.3 mg/dL) 2.6 H Total Bilirubin (0.2 - 1.3 mg/dL) 0.4 AST (17 - 59 U/L) 17 ALT (21 - 72 U/L) 29 Alkaline Phosphatase (< 127 U/L) 278 H Creatine Kinase (55 - 170 U/L) 57 Troponin I (<0.11 ng/ml) < 0.01 Total Protein (6.3 - 8.2 g/dL) 5.3 L Albumin (3.5 - 5.0 g/dL) 2.7 L Globulin (1.9 - 4.2 gm/dL) 2.6 Albumin/Globulin Ratio (1.1 - 2.2 %) 1.0 L Lipase (23 - 300 U/L) 58 Vitamin B12 (239 - 931 pg/mL) > 1000 H 25-OH Vitamin D Total (30 - 100 ng/ml) 10.7 L Folate (2.76 - 20.0 ng/mL) 8.0 TSH (0.270 - 4.200 uIU/mL) 17.200 H Free T4 (0.64 - 1.79 ng/dL) 1.30 Hematology CBC w Diff MAN DIFF ORDERED WBC (4.8 - 10.8 /CUMM) 43.6 *H RBC (4.70 - 6.10 /CUMM) 3.19 L Hgb (14.0 - 18.0 G/DL) 8.8 L Hct (42 - 52 %) 28.2 L MCV (80.0 - 94.0 FL) 88.3 MCH (27.0 - 31.0 PG) 27.7 RDW (11.5 - 14.5 %) 15.5 H Plt Count (130 - 400 /CUMM) 317 MPV (7.4 - 10.4 FL) 7.8 Gran % (42.2 - 75.2 %) 90.1 H Lymphocytes % (20.5 - 51.1 %) 9.1 L Monocytes % (1.7 - 9.3 %) 0.1 L Eosinophils % (0 - 5 %) 0.6 Basophils % (0.0 - 2.0 %) 0.1 Absolute Granulocytes (1.4 - 6.5 /CUMM) 39.3 H Segmented Neutrophils (42.2 - 75.2 %) 66 Band Neutrophils (0.0 - 5.0 %) 16 H Absolute Lymphocytes (1.2 - 3.4 /CUMM) 4.0 H Lymphocytes (20.5 - 51.1 %) 14 L Monocytes (1.7 - 9.3 %) 3 Absolute Monocytes (0.10 - 0.60 /CUMM) 0.1 L Eosinophils (0 - 5.0 %) 1 Absolute Eosinophils (0.0 - 0.7 /CUMM) 0.3 Absolute Basophils (0.0 - 0.2 /CUMM) 0.1 Platelet Estimate (ADEQUATE) ADEQUATE Hypochromic-Microcytic 1+ Anisocytosis 1+ PUBS MCHC (33.0 - 37.0 G/DL) 31.3 L Toxicology Urine Opiates Screen (>2000 NG/ML) < 100.00 Methadone Screen (>300 NG/ML) < 40 Barbiturate Screen (>200 NG/ML) < 60 Ur Phencyclidine Scrn (>25 NG/ML) < 6.00 Amphetamines Screen (>1000 NG/ML) 398 U Benzodiazepines Scrn (>200 NG/ML) < 85 Urine Cocaine Screen (>300 NG/ML) < 50 Urine Cannabis Screen (>50 NG/ML) < 5.00 Urines Urinalysis MOD H Urine Color (YEL,AMB,STR) YEL Urine Clarity (CLEAR) CLDY H Urine pH (5.0 - 8.0) 6.0 Ur Specific [place] (1.001 - 1.035) >= 1.030 Urine Protein (NEG,<30 MG/DL) 100 H Urine Ketones (NEG) NEG Urine Nitrite (NEG) NEG Urine Bilirubin (NEG) NEG Urine Urobilinogen (0.1 - 1.0 EU/dl) 0.2 Ur Leukocyte Esterase (NEG) NEG Ur Microscopic SEDIMENT EXAMINED Urine RBC (0 - 5 /HPF) 15-25 H Urine WBC (0 - 2 /HPF) 3-5 H Ur Epithelial Cells (NONE,FEW) FEW Urine Hemoglobin (NEG) MOD H Urine Glucose (N MG/DL) NEG Diagnostic Data EKG Results (04/24/2017): Sinus rhythm, LPFB, RBBB, possible indeterminate age anteroseptal wall myocardial infarction, and lateral ST-T wave abnormalities. New LPFB and RBBB since previous tracing (03/20/2017). CXR Results (04/24/2017):Endotracheal tube tip 6.1 cm above the region of the willow Patchy bilateral airspace disease with some sparing of the right lower hemithorax. Right apical mass redemonstrated. Other Results CT Chest, abdomen/pelvis (04/24/2017): 1. Persistent mass lesion at right lung apex. 2. New airspace disease in both lungs. 3. Small bilateral pleural effusions. 4. Large volume of abdominal ascites. 5. Air-fluid levels in small-bowel loops and right colon, bowel pattern more suggestive of ileus than small-bowel obstruction. Head CT (04/24/2017):No acute intracranial pathology. No evidence for cerebral edema. Small fluid levels in the maxillary sinus is slightly smaller on the right than previous but new on the left Assessment/Plan Assessment/Plan Mr. Bruno Tejada is a 51-year-old male with a long-standing history of heavy tobacco use, COPD, pulmonary nodules, recently diagnosed non-small cell lung carcinoma, s/p radiation therapy, ongoing chemotherapy and a severe nonischemic cardiomyopathy, s/p cardiac catheterization that revealed nonobstructive coronary artery disease, for which he was initially placed on a LifeVest and who subsequently underwent implantation of a Volo Broadband, Emblem S-ICD at [facility] 07/17/2016 who we are asked to evaluate and help manage after he had a cardiopulmonary arrest at the [facility] center that required ACLS/ intubation for PEA, etc. There was some concern that his defibrillator was inappropriately firing as he displayed "spasms", however, he appeared to be in sinus rhythm with only a mild IVCD on monitoring without any evidence of malignant/potentially malignant dysrhythmias. It is not clear at this time, whether he underwent appropriate defibrillation, whether the device was inappropriately firing, or whether there were no defibrillations at all. The [employer] labor service representative is en route to interrogate the device and further recommendations will follow. A call has also been placed to his conservation engineer (Maik Schilling M.D.). Naturally, there will be nothing we need to do if there were no defibrillator discharges. If the device is inappropriately discharging we can place a magnetic over the device to temporarily discontinue ATP/defibrillation. If the device is appropriately firing it would be reasonable to place him on amiodarone (10 mg bolus over 10 minutes and drip at 1 mg/min). Given his known metastatic lung carcinoma it would be appropriate to exclude a pulmonary embolism which could be a reason for the device to be shocking him appropriately. Naturally, also need to exclude an acute coronary syndrome, although this is less likely to have occurred based on the information available at this time. Continue DVT prophylaxis. Further recommendations will follow, Thank you. Consult Acknowledgment - Thank you for your consult request.
--- NOTE | 2017-04-24 17:24 | NUR ---
Wound Care Assessment: Patient presents with a cluster of 4 unstageable pressure injuries to his coccyx measuring approx 7 X 7cm which were present on admission. Each unstageable wound measures approx 0.5 X 0.5cm, 100% moist yellow fill to wound bed. He is cachectic and at high risk for further decline in skin intergrity. He has been admitted to the [facility] s/p cardiac arrest and remains intubated. Impression: a cluster of 4 unstageable pressure injuries to the coccyx that were present on admission. Recommendations: Clease wounds with normal saline and pat dry. Apply a hydrocolloid dressing to the area and change every 3 days and prn. [facility] and a nutrional consult. Please follow all additional pressure injury guidelines.
[2017-04-24 18:15] LABS: ABSOLUTE BASOPHIL COUNT 0 /CUMM (0.0-0.2); ABSOLUTE EOSINOPHIL COUNT 0.1 /CUMM (0.0-0.7); ABSOLUTE GRANULOCYTE CT 80.5 /CUMM (1.4-6.5); ABSOLUTE LYMPH COUNT 0.5 /CUMM (1.2-3.4); ABSOLUTE MONOCYTE COUNT 0.7 /CUMM (0.10-0.60); BASOPHIL % 0 % (0.0-2.0); EOSINOPHIL % 0.1 % (0-5); GRANULOCYTE % 98.4 % (42.2-75.2); HEMATOCRIT 30.2 % (42-52); MEAN CORPUSCULAR HGB 28.2 PG (27.0-31.0); MEAN CORPUSCULAR HGB CONC 32.6 G/DL (33.0-37.0); MEAN CORPUSCULAR VOLUME 86.4 FL (80.0-94.0); MEAN PLATELET VOLUME 7.4 FL (7.4-10.4); RBC DISTRIBUTION WIDTH 16.1 % (11.5-14.5); RED BLOOD CELL CT 3.49 /CUMM (4.70-6.10)
[2017-04-24 18:39] LABS: WHITE BLOOD CELL COUNT 81.8 /CUMM (4.8-10.8)
[2017-04-24 18:40] LABS: PLATELET COUNT 496 /CUMM (130-400)
--- NOTE | 2017-04-24 18:47 | Cons- Endocrinology ---
General Information and HPI Consulting Request Date of Consult: 04/24/17 Requested By: medical team Reason for Consult: Abnormal thyroid tests Source of Information: old records Exam Limitations: unable to give history History of Present Illness: This 51-year-old male has been in the going treatment for non-small cell carcinoma of the lung involving the right upper lobe. He has had radiation therapy and has been receiving chemotherapy. His chemotherapy has been [employer]. Apparently he had a cardiopulmonary arrest while receiving or shortly after receiving chemotherapy today in the cancer center. He was resuscitated and sent to the emergency room. The patient has a history of a cardiomyopathy and an AICD device. Apparently last several shocks during the arrest. He is now in the intensive care unit on a respirator. He has jerking movements and is felt to have seizure activity has been started on Keppra Thyroid function tests were drawn and his TSH is elevated at 17.2 with a free T4 of 1.3. Allergies/Medications Allergies: Coded Allergies: NO KNOWN ALLERGIES (06/06/13) Home Med List: Albuterol Sulfate 2.5 MG/3 ML (0.083 %) VIAL.NEB 1 Vial INH/VIOLETTE Q4P PRN SHORTNESS OF BREATH (Reported) . Albuterol Sulfate (Proair Hfa) 90 MCG HFA.AER.AD 2 PUF INH Q4-6 PRN PRN SHORTNESS OF BREATH (Reported) Bupropion HCl (Bupropion HCl Sr) 200 MG TABLET.ER 1 TAB PO BID MENTAL HEALTH (Reported) Carvedilol 6.25 MG TABLET 1 TAB PO BID HEART (Reported) Fluticasone/Salmeterol (Advair 500-50 Diskus) 500 MCG-50 MCG/DOSE BLST.W.DEV 1 PUF INH BID BREATHING PROBLEMS (Reported) Sacubitril/Valsartan (Entresto 97 MG-103 MG Tablet) 97 MG-103 MG TABLET 1 TAB PO BID HEART (Reported) Sertraline HCl 50 MG TABLET 1 TAB PO DAILY MENTAL HEALTH (Reported) Past History Travel History Traveled to [place] past 21 day No Medical History Neurological: NONE EENT: NONE Cardiovascular: cardiomyopathy, CHF, defibrillator Respiratory: bronchitis, COPD, emphysema Gastrointestinal: NONE Hepatic: NONE Renal: NONE Musculoskeletal: NONE Psychiatric: NONE Endocrine: NONE Blood Disorders: NONE Cancer(s): 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 Psychosocial History ETOH Use: 6 Illicit Drug Use: UTD Living Will? no Functional Ability ADLs Independent: dressing, eating, toileting, bathing. Ambulation: independent IADLs Independent: shopping, housework, finances, food prep, telephone, transportation , medication admin. ECHO Results (as available) Date of last Echo 03/20/17 EF% 55 Exam & Diagnostic Data Last 24 Hrs of Vital Signs/I&O Vital Signs Date Time Temp Pulse Resp B/P B/P Pulse O2 O2 Flow FiO2 Mean Ox Delivery Rate 04/24 1732 122/88 04/24 1625 100 04/24 1508 100 04/24 1435 92 108/70 04/24 1357 92 24 113/76 100 Ventilator 100% 04/24 1338 96.4 90 24 114/72 100 Ventilator 100% 04/24 1319 87 26 98/62 100 Ventilator 100% 04/24 1234 90 100/60 04/24 1232 92 24 94/62 100 Ventilator 100% 04/24 1145 100 04/24 1144 90 14 78/51 100 Ventilator Intake & Output 04/24 1600 04/24 0800 04/24 0000 Intake Total 1999 Output Total 45 Balance 1954 Intake, IV 1999 Output, Urine 45 Vital Signs Date Time Temp Pulse Resp B/P B/P Pulse O2 O2 Flow FiO2 Mean Ox Delivery Rate 04/24 1732 122/88 04/24 1625 100 04/24 1508 100 04/24 1435 92 108/70 04/24 1357 92 24 113/76 100 Ventilator 100% 04/24 1338 96.4 90 24 114/72 100 Ventilator 100% 04/24 1319 87 26 98/62 100 Ventilator 100% 04/24 1234 90 100/60 04/24 1232 92 24 94/62 100 Ventilator 100% 04/24 1145 100 04/24 1144 90 14 78/51 100 Ventilator Intake & Output 04/24 1600 04/24 0800 04/24 0000 Intake Total 1999 Output Total 45 Balance 1954 Intake, IV 1999 Output, Urine 45 Physical Exam General Appearance: sedated, intubated, thin Head: normal appearance Neck: normal inspection Respiratory: decreased breath sounds Cardiovascular: tachycardia Gastrointestinal: normal bowel sounds, soft Extremities: normal inspection Neurologic/Psych: sedated and intubated Skin: intact Labs/Nikolai Results: Laboratory Tests 04/24 04/24 04/24 04/24 1740 1740 1640 1605 Blood Gas pH (7.35 - 7.45 PH) 7.27 *L pCO2 (35 - 45 TORR) 43 pO2 (80 - 100 TORR) 56 L HCO3 (21 - 28 MEQ/L) 19 L ABG O2 Sat (Measured) (>96.0 %) 83.0 L P-50 (Temp Corrected) N Carboxyhemoglobin (1.5 - 5.0 %) 0.3 L O2 Concentration % 100% Temperature (97.0 - 100.0 FARH) 98.8 Respiration Rate (BPM) 20 O2 Delivery Method VENT Vent Mode AC Expiratory Pressure (CMH2O/P) 5 Tidal Volume (CC) 500 Chemistry Sodium (137 - 145 mmol/L) 136 L Potassium (3.5 - 5.1 mmol/L) 4.7 Chloride (98 - 107 mmol/L) 102 Carbon Dioxide (22 - 30 mmol/L) 22 Anion Gap (5 - 16) 12 BUN (9 - 20 mg/dL) 22 H Creatinine (0.7 - 1.2 mg/dL) 0.9 Estimated GFR (>60 ml/min) > 60 Glucose (65 - 99 mg/dL) 183 H Lactic Acid (0.7 - 2.1 mmol/L) Cancelled 1.6 Calcium (8.4 - 10.2 mg/dL) 7.4 L Phosphorus (2.5 - 4.5 mg/dL) 5.5 H Magnesium (1.6 - 2.3 mg/dL) 2.0 Total Bilirubin (0.2 - 1.3 mg/dL) 0.4 AST (17 - 59 U/L) 87 H ALT (21 - 72 U/L) 69 Troponin I (<0.11 ng/ml) 0.03 Albumin (3.5 - 5.0 g/dL) 2.8 L Prolactin Cancelled Hematology CBC w Diff Pending WBC Pending RBC Pending Hgb Pending Hct Pending MCV Pending MCH Pending RDW Pending Plt Count Pending MPV Pending PUBS MCHC Pending Miscellaneous Phlebotomy Draw Site RIGHT BRACHIAL 04/24 04/24 1510 1230 Blood Gas pH (7.35 - 7.45 PH) 7.07 *L pCO2 (35 - 45 TORR) 45 pO2 (80 - 100 TORR) 311 H HCO3 (21 - 28 MEQ/L) 13 L ABG O2 Sat (Measured) (>96.0 %) 99.0 P-50 (Temp Corrected) N Carboxyhemoglobin (1.5 - 5.0 %) 0.7 L O2 Concentration % 100% Respiration Rate (BPM) 20 O2 Delivery Method VENT Vent Mode AC Expiratory Pressure (CMH2O/P) 5 Tidal Volume (CC) 500 Pressure Support (CMH2O/P) 0 Chemistry Lactic Acid (0.7 - 2.1 mmol/L) 1.6 Coagulation PT (9.4 - 12.5 SEC) 16.2 H INR (0.90 - 1.17) 1.55 H Miscellaneous Phlebotomy Draw Site LEFT RADIAL 04/24 04/24 1212 1140 Chemistry Sodium (137 - 145 mmol/L) 139 Potassium (3.5 - 5.1 mmol/L) 5.3 H Chloride (98 - 107 mmol/L) 103 Carbon Dioxide (22 - 30 mmol/L) 14 L Anion Gap (5 - 16) 22 H BUN (9 - 20 mg/dL) 15 Creatinine (0.7 - 1.2 mg/dL) 0.9 Estimated GFR (>60 ml/min) > 60 BUN/Creatinine Ratio (7 - 25 %) 16.7 Glucose (65 - 99 mg/dL) 160 H Calcium (8.4 - 10.2 mg/dL) 8.6 Phosphorus (2.5 - 4.5 mg/dL) 7.4 H Magnesium (1.6 - 2.3 mg/dL) 2.6 H Total Bilirubin (0.2 - 1.3 mg/dL) 0.4 AST (17 - 59 U/L) 17 ALT (21 - 72 U/L) 29 Alkaline Phosphatase (< 127 U/L) 278 H Creatine Kinase (55 - 170 U/L) 57 Troponin I (<0.11 ng/ml) < 0.01 Total Protein (6.3 - 8.2 g/dL) 5.3 L Albumin (3.5 - 5.0 g/dL) 2.7 L Globulin (1.9 - 4.2 gm/dL) 2.6 Albumin/Globulin Ratio (1.1 - 2.2 %) 1.0 L Lipase (23 - 300 U/L) 58 Vitamin B12 (239 - 931 pg/mL) > 1000 H 25-OH Vitamin D Total (30 - 100 ng/ml) 10.7 L Folate (2.76 - 20.0 ng/mL) 8.0 TSH (0.270 - 4.200 uIU/mL) 17.200 H Free T4 (0.64 - 1.79 ng/dL) 1.30 Prolactin (3.7 - 17.9 ng/mL) 35.3 H Cortisol AM Sample (4.46 - 22.7 ug/dL) > 123.0 H Hematology CBC w Diff MAN DIFF ORDERED WBC (4.8 - 10.8 /CUMM) 43.6 *H RBC (4.70 - 6.10 /CUMM) 3.19 L Hgb (14.0 - 18.0 G/DL) 8.8 L Hct (42 - 52 %) 28.2 L MCV (80.0 - 94.0 FL) 88.3 MCH (27.0 - 31.0 PG) 27.7 RDW (11.5 - 14.5 %) 15.5 H Plt Count (130 - 400 /CUMM) 317 MPV (7.4 - 10.4 FL) 7.8 Gran % (42.2 - 75.2 %) 90.1 H Lymphocytes % (20.5 - 51.1 %) 9.1 L Monocytes % (1.7 - 9.3 %) 0.1 L Eosinophils % (0 - 5 %) 0.6 Basophils % (0.0 - 2.0 %) 0.1 Absolute Granulocytes (1.4 - 6.5 /CUMM) 39.3 H Segmented Neutrophils (42.2 - 75.2 %) 66 Band Neutrophils (0.0 - 5.0 %) 16 H Absolute Lymphocytes (1.2 - 3.4 /CUMM) 4.0 H Lymphocytes (20.5 - 51.1 %) 14 L Monocytes (1.7 - 9.3 %) 3 Absolute Monocytes (0.10 - 0.60 /CUMM) 0.1 L Eosinophils (0 - 5.0 %) 1 Absolute Eosinophils (0.0 - 0.7 /CUMM) 0.3 Absolute Basophils (0.0 - 0.2 /CUMM) 0.1 Platelet Estimate (ADEQUATE) ADEQUATE Hypochromic-Microcytic 1+ Anisocytosis 1+ PUBS MCHC (33.0 - 37.0 G/DL) 31.3 L Toxicology Urine Opiates Screen (>2000 NG/ML) < 100.00 Methadone Screen (>300 NG/ML) < 40 Barbiturate Screen (>200 NG/ML) < 60 Ur Phencyclidine Scrn (>25 NG/ML) < 6.00 Amphetamines Screen (>1000 NG/ML) 398 U Benzodiazepines Scrn (>200 NG/ML) < 85 Urine Cocaine Screen (>300 NG/ML) < 50 Urine Cannabis Screen (>50 NG/ML) < 5.00 Urines Urinalysis MOD H Urine Color (YEL,AMB,STR) YEL Urine Clarity (CLEAR) CLDY H Urine pH (5.0 - 8.0) 6.0 Ur Specific [place] (1.001 - 1.035) >= 1.030 Urine Protein (NEG,<30 MG/DL) 100 H Urine Ketones (NEG) NEG Urine Nitrite (NEG) NEG Urine Bilirubin (NEG) NEG Urine Urobilinogen (0.1 - 1.0 EU/dl) 0.2 Ur Leukocyte Esterase (NEG) NEG Ur Microscopic SEDIMENT EXAMINED Urine RBC (0 - 5 /HPF) 15-25 H Urine WBC (0 - 2 /HPF) 3-5 H Ur Epithelial Cells (NONE,FEW) FEW Urine Hemoglobin (NEG) MOD H Urine Glucose (N MG/DL) NEG Assessment/Plan Assessment/Plan Patient has abnormal thyroid function tests following a cardiopulmonary arrest. He jhas received radiation therapy to the right upper lobe of his lung and is possible that the radiation has caused damage to his thyroid gland with resultant subclinical hypothyroidism. Because his free T4 is 1.3, I do not think he needs any thyroid hormone replacement at this time. An alternative explanation for his abnormal thyroid function tests would be sick euthyroid. I would recommend repeating his thyroid function tests tomorrow including repeat free T4 and TSH. Thyroid antibodies could also be ordered but they would not be of help in this acute situations. I also asked that they check his cortisol level which is greater than 123 which is what you would expect with stress of a cardiopulmonary arrest possibly secondary to anaphylaxis. Consult Acknowledgment - Thank you for your consult request. cardiopulmonary arrest possibly secondary to anaphylaxis. Consult Acknowledgment - Thank you for your consult request.
--- NOTE | 2017-04-24 19:49 | RADIOLOGY REPORT ---
EXAMINATION: XR PORTABLE CHEST CLINICAL INFORMATION: Patient on mechanical ventilation. ET tube placement and OG tube placement COMPARISON: CT of the chest done today. TECHNIQUE: Portable AP semierect view of the chest was obtained. FINDINGS: The tip of the endotracheal tube is 7.9 cm above the willow. The oral gastric tube terminates in the stomach. A large right apical mass representing cancer is present. There are bilateral lower lobe areas of consolidation. Some form of anterior chest wall electrical stimulator is in place. IMPRESSION: Endotracheal tube close to 8 cm above the willow. OG tube in the stomach. Right apical lung cancer. Bilateral lower lobe consolidation worse on the left than right.
--- NOTE | 2017-04-24 19:49 | NUR ---
REPORT RECIEVED FROM DAY MAINTENANCE MACHINE REPAIRER AT PATIENTS BEDSIDE STATING THEY WANT PATIENT NOT TO BE IN PAIN MD OUT TO DISCUSS WITH FAMILY PT HAVING TWITCHING MOVEMENTS WITH FACIAL GRIMACING ATIVAN INCREASED TO 3MG MD AWARE SEE ICU FLOWSHEET FOR DETAILS SATS ON 100% WIT PEEP OF 7 ARE 80% MD AWARE
[2017-04-24 20:00] VITALS: BP 126/78
--- NOTE | 2017-04-24 21:17 | NUR ---
LATE ENTRY FOR ADM.1410 RECIEVED FROM ER W/M AGE 51 S/P CARDIAC ARREST FROM [facility] AND ? S/P CHEMOTHERAPY VIA STRETCHER TO RM 111. PT PALE AND INTUBATED CURRENTLY BEING BAGGED BY RT. PT PLACE IN BED. ASSESSMENT THIN MALE PALE SKIN AND APPEARS UNDER NOURISHED.ETT TO VENT AT 100% O2,SAT 89%.MONITOR ST,INTERNAL PACER/AICD ON LT LATERAL CHEST WALL.PACER PADS TO CHEST WALL,AUTO CUFF ON AND PTS B/P STABLE ON D/S LEVOPHED AT 20MCQ. WILL TITATE DOWN ONCE STABALIZED.ROLDAN DRAINING CLOUDY URINE WITH SEDIMENT,TLC TO RT GROIN INTACT. 18G ANGIO TO LT AC CHANGED OVER TP PIVO FOR BLD DRAW.ALPS ON. TURNED AND A FEW SMALL DIME SIZE DECUBITUS ON COCCYX WOUND RN ASSESSED AND DRESSED AREA WITH DUODERM. OGT 18G PLACED ORDERDED [employer] OBT. IVF D51/2 AT 50ML STARTED ORDERED THROUGHOUT THIS TIME PT HAVE TWITCHING OF FACE AND JERKING OF BODY, HEAD, CHEST AND LEGS.2MG ATIVAN IV 1544 AND LATER MORP 2MG IV FOR JERKING DURING EEG. ECHO DONE. FAMILY IN AND OUT OF ROOM TO VS. PACER INTREGATED BY OUTSIDE COMPANY AND DR BOWEN AWARE OF RESULTS. DR VASQUEZ VS WITH FAMILY ALING WITH MD FROM [facility]. ABG DONE AND INCREASED PEEP PER DR SALCEDO. AWAITING MEDS FROM PHARMACY. ETT PULLED BACK AND CXR DONE REQUESTED. LABS DRAWN AND SENT ORDERED EARLIER. WBC UP,VS BY DR RODRIGUES. FAMILY COMING TO INFORMATICS SPEC WITH PTS OVER CONDITION AND ARE CONSIDERING COMFORT. 183 LEVOPHED TITRATION CONTINUING DOWNWARDS. ABX,AMIODORONE BOLUS AND DRIP STARTED,KEPPRA BOLUS GIVEN.ATIVAN GTT TO LAC ORDERED. REPORT TO ELSI HERNANDEZ.
--- NOTE | 2017-04-24 21:48 | ULTRASOUND REPORT ---
EXAMINATION: BILATERAL LOWER EXTREMITY DEEP VENOUS ULTRASOUND CLINICAL INFORMATION: Suspected DVT COMPARISON: No similar prior examinations are available for comparison. TECHNIQUE: Duplex Doppler imaging with compression maneuvers were performed of the bilateral lower extremity deep venous systems. Evaluation of the right lower extremity was limited secondary to bandages overlying the groin and mid thigh. FINDINGS: Limited evaluation of the right common femoral vein (secondary to overlying bandage) demonstrates normal compressibility and color Doppler flow suggesting patency. The right superficial femoral vein and popliteal vein demonstrate normal compressibility and color Doppler flow suggesting patency. Visualized right calf veins demonstrate normal color Doppler flow suggesting patency. The visualized left common femoral, femoral and popliteal veins demonstrate normal compressibility and color flow without evidence of venous thrombosis. Visualized portions of the left calf veins demonstrate normal color fill-in suggesting patency. Prominent atherosclerotic disease appreciated within the left common femoral artery. There is no evidence of a Pickett's cyst. IMPRESSION: No evidence of deep venous thrombosis involving the bilateral lower extremities. Examination of the right lower extremity limited secondary to bandages within the right groin and right mid thigh.
--- NOTE | 2017-04-24 21:56 | ELECTROENCEPHALOGRAM REPORT ---
Electroencephalogram Report Electroencephalogram Results Date of service: 04/24/17 Attending MD: MANUEL SALCEDO MD Workers Compensation Adjuster: BO Herrera EEG Number: [id number] Test Utilizes: 10-20 system, 21 lead 18 channel digital recording Pertinent Hx/Physical/Neuro Findings/Clin Diagnosis: Evaluation for seizures following cardio-pulmonary arrest. Bursts of violent generalized muscle shaking described by the product technician. Latest recorded temperature 99.6 Inpatient Medications: Current Medications Sig/Yuli Start time Last Medication Dose Route Stop Time Status Admin Amiodarone HCl/ 150 MG ONCE ONE 04/24 1645 DC 04/24 Dextrose IV 04/24 1654 1930 N/A 1 UNIT Amiodarone HCl/ 360 MG Q12H 04/24 1645 AC 04/24 Dextrose IV 1945 N/A 1 UNIT Ceftazidime 2,000 MG IQ8 04/24 1600 AC 04/24 Dextrose/Water 50 ML IV 1946 Dextrose/Sodium 1,000 ML ONCE ONE 04/24 1430 AC 04/24 Chloride IV 04/25 1029 1530 Epinephrine 1 MG ONCE ONE 04/24 1230 DC 04/24 IV 04/24 1231 1122 Heparin Sodium 5,000 UNIT Q8 04/24 2200 AC (Porcine) SC Levetiracetam 500 MG Q12 04/24 2200 DC N/A 1 UNIT IV Levetiracetam 500 MG 0600,1800 04/24 1800 AC 04/24 N/A 1 UNIT IV 2016 Levetiracetam 1,000 MG ONCE ONE 04/24 1630 DC 04/24 N/A 1 UNIT IV 04/24 1644 1946 Lorazepam 2 MG ONE ONE 04/24 1545 DC 04/24 IV 04/24 1546 1545 Lorazepam 50 MG Q24H 04/24 1545 AC 04/24 Dextrose/Water 500 ML IV 1946 Lorazepam 0 .STK-MED ONE 04/24 1412 DC .ROUTE Lorazepam 1 MG STAT STA 04/24 1230 DC 04/24 IV 04/24 1231 1218 Lorazepam 1 MG STAT STA 04/24 1230 DC 04/24 IV 04/24 1231 1224 Lorazepam 0 .STK-MED ONE 04/24 1222 DC .ROUTE Morphine Sulfate 2 MG Q1 NEEDED PRN 04/24 2145 UNVr IV Morphine Sulfate 2 MG Q4P PRN 04/24 2015 AC 04/24 IV 2016 Morphine Sulfate 2 MG ONCE ONE 04/24 1730 DC 04/24 IV 04/24 1731 1731 Morphine Sulfate 2 MG ONCE ONE 04/24 1230 DC 04/24 IV 04/24 1231 1207 Morphine Sulfate 0 .STK-MED ONE 04/24 1210 DC .ROUTE Norepinephrine 8 MG Q8H 04/24 2200 AC Sodium Chloride 250 ML IV Norepinephrine 4 MG Q4H 04/24 1515 AC 04/24 Sodium Chloride 250 ML IV 04/24 2200 1800 Norepinephrine 8 MG ONCE ONE 04/24 1230 DC 04/24 Sodium Chloride 250 ML IV 04/24 1231 1234 Sodium Chloride 1,000 ML BOLUS ONE 04/24 1230 DC 04/24 IV 04/24 1329 1118 Sodium Chloride 1,000 ML BOLUS ONE 04/24 1230 DC 04/24 IV 04/24 1329 1200 Vancomycin HCl 1,000 MG Q12 04/24 1438 AC 04/24 Sodium Chloride 250 ML IV 1946 Interpretation: Burst suppression pattern with long periods up to about 30 seconds of total suppression of all cerebral rhythms then bursts of high amplitude generalized but frontally dominant fast sharp activity lasting in the range of 1 to 3 seconds. These bursts coincide with the clinical muscular jerking. Activation procedures could not be done. Impression: Burst suppression pattern with myoclonic seizures described that coincide with bursts of cerebral activity. Burst suppression often indicates severe anoxic brain injury and is associated with a poor prognosis.
--- NOTE | 2017-04-24 22:30 | NUR ---
TERMINALLY EXTUBATED PER FAMILY WISHES AND MD ORDER BY RT ATIVAN GTT INFUSING AND MSO4 GIVEN PRN AWAITING MORPHINE GTT SEE MAR FAMILY AT BEDSIDE PT CONTINUES TO TWITCH MEDICATED NEEDED EMOTIONAL SUPPORT GIVEN PASTORAL CARE AT BEDSIDE
--- NOTE | 2017-04-24 23:03 | Event Note ---
Event Note Event Note: I had an extensive discussion with the family regarding patient's goals of care. The patient's family admits that the patient did not want to be kept alive on life support. He is status post cardiopulmonary resuscitation and is currently on mechanical ventilation and pressor support. His clinical condition has shown no improvement in the past few hours. His AICD was interrogated earlier in the day. He is currently doing poorly with continuous myoclonic jerks despite being on IV Ativan and IV Keppra. His EEG is abnormal indicating severe anoxic brain injury. The family (girlfriend, father, brother, [id number], sister) is aware of his grave prognosis and has decided to go for comfort measures only. The do not want to see him suffering and in pain. Their desire is to keep him comfortable and pain-free. The patient was terminally extubated at around 10:30 PM after discussing with Dr. Milan. A magnet was placed over his AICD after discussing with Dr. Gordon. Jinn herbicide service sales representative was updated. His CODE STATUS has been changed to comfort measures only. Nurse Joon , respiratory therapist chaplain Michelle were present in the room during the whole discussion. All medications have been discontinued except IV morphine and Ativan.
[2017-04-25] VITALS: BP 86/58
--- NOTE | 2017-04-25 02:30 | NUR ---
0000 UNRESPONSIVE PATIENT RECEIVED, PUPILS 2MM, EQUAL, ? SLUGGISH RESPONSE TO LIGHT, SKIN PALE, MOIST AND WARM, INTERMITTENT CLONIC SEIZURE ACTIVITY OF LIMBS AND FACE, ATIVAN DRIP INFUSING AT 7MG/HR, O2 AT 100% VIA NRB, RR 12/MIN, MORPHINE DRIP INFUSING AT 6 MG/HR FOR COMFORT, DREDGE OPERATOR SINUS TACHYCARDIA WITHOUT ECTOPY, HEART RATE 110'S/MIN, ROLDAN TO GRAVITY DRAINAGE- HEMATURIA NOTED, DUODERM INTACT TO COCCYX
--- NOTE | 2017-04-25 06:29 | NUR ---
RESPIRATORY EFFORT HAS SLOWED OVERNIGHT, DR SMITH IN TO SPEAK WITH FAMILY MEMBERS
--- NOTE | 2017-04-25 07:00 | NUR ---
INTRODUCED SELF TO FAMILY, SISTER AND BROTHER. COMFORT MEASURES ONLY AT THIS TIME. PATIENT APPEARS COMFORTABLE AT THIS TIME. VAT OVERHAULER AND ELECTRODES TAKEN OFF. REPOSITIONED WITH PILLOWS. REVIEWED POC WITH FAMILY. FAMILY VERBALIZES UNDERSTANDING. CALL MIRANDA IN REACH.
[2017-04-25 08:00] VITALS: BP 88/50
--- NOTE | 2017-04-25 08:28 | Cons- Oncology ---
General Information and HPI Consulting Request Date of Consult: 04/25/17 Requested By: MANUEL SALCEDO MD Reason for Consult: lung cancer, cardiac arrest Source of Information: old records Exam Limitations: clinical condition History of Present Illness: Mr. Tejada is a 51-yo male with stage IIIA NSCLC currently on concurrent carboplatin/paclitaxel with radiaiton, CHF with AICD, and COPD who presented to the hospital [facility]. He was in his normal state of health and was seen in the clinic to continue his carboplatin/paclitaxel with radiation yesterday. During paclitaxel infusion, he report difficulty breathing and was in respiratory distress. NRB mask was placed. Solu-Cortef 100 mg, Epi-pen, Benadryl, and famotidine were administered. He subsequently became nonresponsive and pulseless. He was started on CPR and EMS called. AED was placed without recommended shock. CPR was continue after EMS arrived and transferred to the ED. In the ED, he was found to be in PEA again and was able to attain ROSC. He was intubated. He was noted to have seizure like activity. He was transferred to the ICU for further evaluation. He was placed on pressor support. ICD was investigated and seem to have discharged during his respiratory distress. EEG was done and demonstrated myoclonic seizure and severe anoxic brain injury. Overnight, family have decided to change to comfort measure only. This morning he is more comfortable with agonal breathing. Allergies/Medications Allergies: Coded Allergies: NO KNOWN ALLERGIES (06/06/13) Home Med List: Albuterol Sulfate 2.5 MG/3 ML (0.083 %) VIAL.NEB 1 Vial INH/VIOLETTE Q4P PRN SHORTNESS OF BREATH (Reported) . Albuterol Sulfate (Proair Hfa) 90 MCG HFA.AER.AD 2 PUF INH Q4-6 PRN PRN SHORTNESS OF BREATH (Reported) Bupropion HCl (Bupropion HCl Sr) 200 MG TABLET.ER 1 TAB PO BID MENTAL HEALTH (Reported) Carvedilol 6.25 MG TABLET 1 TAB PO BID HEART (Reported) Fluticasone/Salmeterol (Advair 500-50 Diskus) 500 MCG-50 MCG/DOSE BLST.W.DEV 1 PUF INH BID BREATHING PROBLEMS (Reported) Sacubitril/Valsartan (Entresto 97 MG-103 MG Tablet) 97 MG-103 MG TABLET 1 TAB PO BID HEART (Reported) Sertraline HCl 50 MG TABLET 1 TAB PO DAILY MENTAL HEALTH (Reported) Current Medications: Current Medications Sig/Yuli Start time Last Medication Dose Route Stop Time Status Admin Acetaminophen 1,000 MG Q6P PRN 04/25 0015 AC 04/25 N/A 1 UNIT IV 0036 Amiodarone HCl/ 150 MG ONCE ONE 04/24 1645 DC 04/24 Dextrose IV 04/24 1654 1930 N/A 1 UNIT Amiodarone HCl/ 360 MG Q12H 04/24 1645 DC 04/24 Dextrose IV 1945 N/A 1 UNIT Ceftazidime 2,000 MG IQ8 04/24 1600 DC 04/24 Dextrose/Water 50 ML IV 1946 Dextrose/Sodium 1,000 ML ONCE ONE 04/24 1430 DC 04/24 Chloride IV 04/25 1029 1530 Epinephrine 1 MG ONCE ONE 04/24 1230 DC 04/24 IV 04/24 1231 1122 Heparin Sodium 5,000 UNIT Q8 04/24 2200 CAN (Porcine) SC Levetiracetam 500 MG Q12 04/24 2200 DC N/A 1 UNIT IV Levetiracetam 500 MG 0600,1800 04/24 1800 DC 04/24 N/A 1 UNIT IV 2016 Levetiracetam 1,000 MG ONCE ONE 04/24 1630 DC 04/24 N/A 1 UNIT IV 04/24 1644 1946 Lorazepam 50 MG Q7H 04/25 0200 AC 04/25 Dextrose/Water 500 ML IV 0302 Lorazepam 2 MG ONE ONE 04/24 1545 DC 04/24 IV 04/24 1546 1545 Lorazepam 50 MG Q24H 04/24 1545 DC 04/24 Dextrose/Water 500 ML IV 1946 Lorazepam 0 .STK-MED ONE 04/24 1412 DC .ROUTE Lorazepam 1 MG STAT STA 04/24 1230 DC 04/24 IV 04/24 1231 1218 Lorazepam 1 MG STAT STA 04/24 1230 DC 04/24 IV 04/24 1231 1224 Lorazepam 0 .STK-MED ONE 04/24 1222 DC .ROUTE Morphine Sulfate 100 MG Q24H 04/24 2230 AC 04/24 Dextrose/Water 100 ML IV 2240 Morphine Sulfate 2 MG ONCE ONE 04/24 2200 DC 04/24 IV 04/24 2201 2200 Morphine Sulfate 2 MG Q1 NEEDED PRN 04/24 2145 AC 04/24 IV 2230 Morphine Sulfate 2 MG Q4P PRN 04/24 2015 DC 04/24 IV 2016 Morphine Sulfate 2 MG ONCE ONE 04/24 1730 DC 04/24 IV 04/24 1731 1731 Morphine Sulfate 2 MG ONCE ONE 04/24 1230 DC 04/24 IV 04/24 1231 1207 Morphine Sulfate 0 .STK-MED ONE 04/24 1210 DC .ROUTE Norepinephrine 8 MG Q8H 04/24 2200 CAN Sodium Chloride 250 ML IV Norepinephrine 8 MG .STK-MED ONE 04/24 1757 DC IV 04/24 1758 Norepinephrine 4 MG Q4H 04/24 1515 DC 04/24 Sodium Chloride 250 ML IV 04/24 2200 1800 Norepinephrine 8 MG ONCE ONE 04/24 1230 DC 04/24 Sodium Chloride 250 ML IV 04/24 1231 1234 Scopolamine HBr 1 PAT Q72H 04/25 0015 AC 04/25 TOP 0058 Sodium Chloride 1,000 ML BOLUS ONE 04/24 1230 DC 04/24 IV 04/24 1329 1118 Sodium Chloride 1,000 ML BOLUS ONE 04/24 1230 DC 04/24 IV 04/24 1329 1200 Vancomycin HCl 1,000 MG Q12 04/24 1438 DC 04/24 Sodium Chloride 250 ML IV 1946 Review of Systems Review of Systems: Unable to be obtained due to clinical condition. 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 Psychosocial History Where Do You Live? Home Smoking Status: Current Everyday Smoker ETOH Use: 6 Illicit Drug Use: UTD Living Will? no Functional Ability ADLs Independent: dressing, eating, toileting, bathing. Ambulation: independent IADLs Independent: shopping, housework, finances, food prep, telephone, transportation , medication admin. ECHO Results (as available) Date of last Echo 03/20/17 EF% 55 Exam & Diagnostic Data Vital Signs and I&O Vital Signs Date Time Temp Pulse Resp B/P B/P Pulse O2 O2 Flow FiO2 Mean Ox Delivery Rate 04/25 0800 Non 100% ReBreather 04/25 0800 97.0 70 18 88/50 98 Non 100% ReBreather 04/25 0400 Non 100% ReBreather 04/25 0140 98.5 04/25 0036 99.9 06/ 0000 78 Non 100% ReBreather 04/25 0000 99.9 116 12 86/58 78 Non 100% ReBreather 04/24 2055 89 Ventilator 100% 04/24 2020 100 04/24 2000 99.6 114 22 126/78 04/24 2000 90 Ventilator 100% 04/24 1930 117/81 04/24 1800 117/81 04/24 1732 122/88 04/24 1625 100 04/24 1600 89 Ventilator 100% 04/24 1508 100 04/24 1500 97.5 100 20 122/88 04/24 1500 97.5 100 20 122/88 89 Ventilator 100% 04/24 1435 92 108/70 04/24 1357 92 24 113/76 100 Ventilator 100% 04/24 1338 96.4 90 24 114/72 100 Ventilator 100% 04/24 1319 87 26 98/62 100 Ventilator 100% 04/24 1234 90 100/60 04/24 1232 92 24 94/62 100 Ventilator 100% 04/24 1145 100 04/24 1144 90 14 78/51 100 Ventilator Intake & Output 04/25 1600 04/25 0800 06 0000 Intake Total 603 Output Total 220 Balance 383 Intake, IV 603 Number 0 Bowel Movements Output, Urine 220 Physical Exam General Appearance: sedated Respiratory: agonal breathing Cardiovascular: regular rate/rhythm Gastrointestinal: soft Extremities: cool to touch Neurologic/Psych: unresponsive Last 48 Hours of Lab Results: Laboratory Tests 04/25 04/25 04/24 0500 0000 1740 Chemistry Lactic Acid Cancelled Troponin I Cancelled Free T4 Cancelled Hematology CBC w Diff Cancelled WBC Cancelled RBC Cancelled Hgb Cancelled Hct Cancelled MCV Cancelled MCH Cancelled RDW Cancelled Plt Count Cancelled MPV Cancelled PUBS MCHC Cancelled 04/24 04/24 1740 1640 Blood Gas pH (7.35 - 7.45 PH) 7.27 *L pCO2 (35 - 45 TORR) 43 pO2 (80 - 100 TORR) 56 L HCO3 (21 - 28 MEQ/L) 19 L ABG O2 Sat (Measured) (>96.0 %) 83.0 L P-50 (Temp Corrected) N Carboxyhemoglobin (1.5 - 5.0 %) 0.3 L O2 Concentration % 100% Temperature (97.0 - 100.0 FARH) 98.8 Respiration Rate (BPM) 20 O2 Delivery Method VENT Vent Mode AC Expiratory Pressure (CMH2O/P) 5 Tidal Volume (CC) 500 Chemistry Sodium (137 - 145 mmol/L) 136 L Potassium (3.5 - 5.1 mmol/L) 4.7 Chloride (98 - 107 mmol/L) 102 Carbon Dioxide (22 - 30 mmol/L) 22 Anion Gap (5 - 16) 12 BUN (9 - 20 mg/dL) 22 H Creatinine (0.7 - 1.2 mg/dL) 0.9 Estimated GFR (>60 ml/min) > 60 Glucose (65 - 99 mg/dL) 183 H Lactic Acid (0.7 - 2.1 mmol/L) 1.6 Calcium (8.4 - 10.2 mg/dL) 7.4 L Phosphorus (2.5 - 4.5 mg/dL) 5.5 H Magnesium (1.6 - 2.3 mg/dL) 2.0 Total Bilirubin (0.2 - 1.3 mg/dL) 0.4 AST (17 - 59 U/L) 87 H ALT (21 - 72 U/L) 69 Troponin I (<0.11 ng/ml) 0.03 Albumin (3.5 - 5.0 g/dL) 2.8 L Hematology CBC w Diff MAN DIFF ORDERED WBC (4.8 - 10.8 /CUMM) 81.8 *H RBC (4.70 - 6.10 /CUMM) 3.49 L Hgb (14.0 - 18.0 G/DL) 9.9 L Hct (42 - 52 %) 30.2 L MCV (80.0 - 94.0 FL) 86.4 MCH (27.0 - 31.0 PG) 28.2 RDW (11.5 - 14.5 %) 16.1 H Plt Count (130 - 400 /CUMM) 496 H MPV (7.4 - 10.4 FL) 7.4 Gran % (42.2 - 75.2 %) 98.4 H Lymphocytes % (20.5 - 51.1 %) 0.6 L Monocytes % (1.7 - 9.3 %) 0.9 L Eosinophils % (0 - 5 %) 0.1 Basophils % (0.0 - 2.0 %) 0 L Absolute Granulocytes (1.4 - 6.5 /CUMM) 80.5 H Segmented Neutrophils (42.2 - 75.2 %) 76 H Band Neutrophils (0.0 - 5.0 %) 20 H Absolute Lymphocytes (1.2 - 3.4 /CUMM) 0.5 L Lymphocytes (20.5 - 51.1 %) 1 L Monocytes (1.7 - 9.3 %) 1 L Absolute Monocytes (0.10 - 0.60 /CUMM) 0.7 H Absolute Eosinophils (0.0 - 0.7 /CUMM) 0.1 Absolute Basophils (0.0 - 0.2 /CUMM) 0 Metamyelocytes (0.0 - 1.0 %) 2 H Platelet Estimate (ADEQUATE) INCREASED Polychromasia 2+ Hypochromic-Microcytic 2+ Anisocytosis 1+ PUBS MCHC (33.0 - 37.0 G/DL) 32.6 L Miscellaneous Phlebotomy Draw Site RIGHT BRACHIAL 04/24 04/24 04/24 1605 1510 1230 Blood Gas pH (7.35 - 7.45 PH) 7.07 *L pCO2 (35 - 45 TORR) 45 pO2 (80 - 100 TORR) 311 H HCO3 (21 - 28 MEQ/L) 13 L ABG O2 Sat (Measured) (>96.0 %) 99.0 P-50 (Temp Corrected) N Carboxyhemoglobin (1.5 - 5.0 %) 0.7 L O2 Concentration % 100% Respiration Rate (BPM) 20 O2 Delivery Method VENT Vent Mode AC Expiratory Pressure (CMH2O/P) 5 Tidal Volume (CC) 500 Pressure Support (CMH2O/P) 0 Chemistry Lactic Acid (0.7 - 2.1 mmol/L) 1.6 Prolactin Cancelled Coagulation PT (9.4 - 12.5 SEC) 16.2 H INR (0.90 - 1.17) 1.55 H Miscellaneous Phlebotomy Draw Site LEFT RADIAL 04/24 04/24 1212 1140 Chemistry Sodium (137 - 145 mmol/L) 139 Potassium (3.5 - 5.1 mmol/L) 5.3 H Chloride (98 - 107 mmol/L) 103 Carbon Dioxide (22 - 30 mmol/L) 14 L Anion Gap (5 - 16) 22 H BUN (9 - 20 mg/dL) 15 Creatinine (0.7 - 1.2 mg/dL) 0.9 Estimated GFR (>60 ml/min) > 60 BUN/Creatinine Ratio (7 - 25 %) 16.7 Glucose (65 - 99 mg/dL) 160 H Calcium (8.4 - 10.2 mg/dL) 8.6 Phosphorus (2.5 - 4.5 mg/dL) 7.4 H Magnesium (1.6 - 2.3 mg/dL) 2.6 H Total Bilirubin (0.2 - 1.3 mg/dL) 0.4 AST (17 - 59 U/L) 17 ALT (21 - 72 U/L) 29 Alkaline Phosphatase (< 127 U/L) 278 H Creatine Kinase (55 - 170 U/L) 57 Troponin I (<0.11 ng/ml) < 0.01 Total Protein (6.3 - 8.2 g/dL) 5.3 L Albumin (3.5 - 5.0 g/dL) 2.7 L Globulin (1.9 - 4.2 gm/dL) 2.6 Albumin/Globulin Ratio (1.1 - 2.2 %) 1.0 L Lipase (23 - 300 U/L) 58 Vitamin B12 (239 - 931 pg/mL) > 1000 H 25-OH Vitamin D Total (30 - 100 ng/ml) 10.7 L Folate (2.76 - 20.0 ng/mL) 8.0 TSH (0.270 - 4.200 uIU/mL) 17.200 H Free T4 (0.64 - 1.79 ng/dL) 1.30 Prolactin (3.7 - 17.9 ng/mL) 35.3 H Cortisol AM Sample (4.46 - 22.7 ug/dL) > 123.0 H Hematology CBC w Diff MAN DIFF ORDERED WBC (4.8 - 10.8 /CUMM) 43.6 *H RBC (4.70 - 6.10 /CUMM) 3.19 L Hgb (14.0 - 18.0 G/DL) 8.8 L Hct (42 - 52 %) 28.2 L MCV (80.0 - 94.0 FL) 88.3 MCH (27.0 - 31.0 PG) 27.7 RDW (11.5 - 14.5 %) 15.5 H Plt Count (130 - 400 /CUMM) 317 MPV (7.4 - 10.4 FL) 7.8 Gran % (42.2 - 75.2 %) 90.1 H Lymphocytes % (20.5 - 51.1 %) 9.1 L Monocytes % (1.7 - 9.3 %) 0.1 L Eosinophils % (0 - 5 %) 0.6 Basophils % (0.0 - 2.0 %) 0.1 Absolute Granulocytes (1.4 - 6.5 /CUMM) 39.3 H Segmented Neutrophils (42.2 - 75.2 %) 66 Band Neutrophils (0.0 - 5.0 %) 16 H Absolute Lymphocytes (1.2 - 3.4 /CUMM) 4.0 H Lymphocytes (20.5 - 51.1 %) 14 L Monocytes (1.7 - 9.3 %) 3 Absolute Monocytes (0.10 - 0.60 /CUMM) 0.1 L Eosinophils (0 - 5.0 %) 1 Absolute Eosinophils (0.0 - 0.7 /CUMM) 0.3 Absolute Basophils (0.0 - 0.2 /CUMM) 0.1 Platelet Estimate (ADEQUATE) ADEQUATE Hypochromic-Microcytic 1+ Anisocytosis 1+ PUBS MCHC (33.0 - 37.0 G/DL) 31.3 L Toxicology Urine Opiates Screen (>2000 NG/ML) < 100.00 Methadone Screen (>300 NG/ML) < 40 Barbiturate Screen (>200 NG/ML) < 60 Ur Phencyclidine Scrn (>25 NG/ML) < 6.00 Amphetamines Screen (>1000 NG/ML) 398 U Benzodiazepines Scrn (>200 NG/ML) < 85 Urine Cocaine Screen (>300 NG/ML) < 50 Urine Cannabis Screen (>50 NG/ML) < 5.00 Urines Urinalysis MOD H Urine Color (YEL,AMB,STR) YEL Urine Clarity (CLEAR) CLDY H Urine pH (5.0 - 8.0) 6.0 Ur Specific Mouthcard (1.001 - 1.035) >= 1.030 Urine Protein (NEG,<30 MG/DL) 100 H Urine Ketones (NEG) NEG Urine Nitrite (NEG) NEG Urine Bilirubin (NEG) NEG Urine Urobilinogen (0.1 - 1.0 EU/dl) 0.2 Ur Leukocyte Esterase (NEG) NEG Ur Microscopic SEDIMENT EXAMINED Urine RBC (0 - 5 /HPF) 15-25 H Urine WBC (0 - 2 /HPF) 3-5 H Ur Epithelial Cells (NONE,FEW) FEW Urine Hemoglobin (NEG) MOD H Urine Glucose (N MG/DL) NEG Imaging/Other Studies: CT chest/abdomen/pelvis 04/24/2017: 1. Persistent mass lesion at right lung apex. 2. New airspace disease in both lungs. 3. Small bilateral pleural effusions. 4. Large volume of abdominal ascites. 5. Air-fluid levels in small-bowel loops and right colon, bowel pattern more suggestive of ileus than small-bowel obstruction. US lower extremity 04/24/2017: No evidence of deep venous thrombosis involving the bilateral lower extremities. Examination of the right lower extremity limited secondary to bandages within the right groin and right mid thigh. EEG 04/24/2017: Burst suppression pattern with myoclonic seizures described that coincide with bursts of cerebral activity. Burst suppression often indicates severe anoxic brain injury and is associated with a poor prognosis. Assessment/Plan Assessment: Mr. Tejada is a 51-year-old male with stage IIIA NSCLC currently receiving weekly carboplatin/paclitaxel with radiation, CHF with AICD in place, and COPD who presented to hospital after cardiopulmonary arrest status post resuscitation. He is noted to have severe anoxic brain injury. He is now comfort measure only. He likely had a severe anaphylactic reaction to paclitaxel during infusion. This is a common side effect from the therapy. The respiratory distress may have trigger an abnormal arrhythmia causing his AICD to discharge and subsequent became pulseless. He did have seizure like activity during the process. Resuscitation was successful in ROSC but he was noted to have severe anoxic brain injury. Prognosis is overall poor. I have met with the family and discussed the events and overall prognosis. Patient is more comfortable. Recommendations: 1. Comfort measure as per family and ICU 2. Hospice referral Problem List: 1. Cardiac arrest 2. Leukocytosis 3. Lung cancer Other Findings/Comments: Please call [phone] with any questions or concerns. Consult Acknowledgment - Thank you for your consult request.
--- NOTE | 2017-04-25 08:29 | PN- Resident CRCU ---
VALERIE HERMAN,[facility] 04/25/17 0829: Subjective HPI/CRCU Issues: Patient was seen and examined this morning, was converted to comfort care yesterday evening. Family at bedside. No report about seizure activities. 24 Hour Events: Temperature 90.7, pulse 70, blood pressure 88/50, respiratory rate 18 saturating 98% on 100% nonrebreather Objective Vital Signs & I&O Last 8 Hrs of Vitals and I&O: 11 Exam General Appearance: sedated Head: atraumatic, normal appearance Ears, Nose, Throat: normal pharynx Neck: normal inspection Respiratory: chest non-tender Cardiovascular: regular rate/rhythm Gastrointestinal: normal bowel sounds, soft Extremities: no edema Current Medications: Current Medications Sig/Yuli Start time Last Medication Dose Route Stop Time Status Admin Acetaminophen 1,000 MG Q6P PRN 04/25 0015 DCD 04/25 N/A 1 UNIT IV 0036 Amiodarone HCl/ 150 MG ONCE ONE 04/24 1645 DC 04/24 Dextrose IV 04/24 1654 1930 N/A 1 UNIT Amiodarone HCl/ 360 MG Q12H 04/24 1645 DC 04/24 Dextrose IV 1945 N/A 1 UNIT Ceftazidime 2,000 MG IQ8 04/24 1600 DC 04/24 Dextrose/Water 50 ML IV 1946 Dextrose/Sodium 1,000 ML ONCE ONE 04/24 1430 DC 04/24 Chloride IV 04/25 1029 1530 Heparin Sodium 5,000 UNIT Q8 04/24 2200 CAN (Porcine) SC Levetiracetam 500 MG Q12 04/24 2200 DC N/A 1 UNIT IV Levetiracetam 500 MG 0600,1800 04/24 1800 DC 04/24 N/A 1 UNIT IV 2016 Levetiracetam 1,000 MG ONCE ONE 04/24 1630 DC 04/24 N/A 1 UNIT IV 04/24 1644 1946 Lorazepam 50 MG Q7H 04/25 0200 DCD 04/25 Dextrose/Water 500 ML IV 1026 Lorazepam 50 MG Q24H 04/24 1545 DC 04/24 Dextrose/Water 500 ML IV 1946 Morphine Sulfate 3 MG ONCE ONE 04/25 1115 DC 04/25 IV 04/25 1116 1118 Morphine Sulfate 100 MG Q24H 04/24 2230 DCD 04/24 Dextrose/Water 100 ML IV 2240 Morphine Sulfate 2 MG ONCE ONE 04/24 2200 DC 04/24 IV 04/24 2201 2200 Morphine Sulfate 2 MG Q1 NEEDED PRN 04/24 2145 DCD 04/24 IV 2230 Morphine Sulfate 2 MG Q4P PRN 04/24 2015 DC 04/24 IV 2016 Morphine Sulfate 2 MG ONCE ONE 04/24 1730 DC 04/24 IV 04/24 1731 1731 Norepinephrine 8 MG Q8H 04/24 2200 CAN Sodium Chloride 250 ML IV Norepinephrine 8 MG .STK-MED ONE 04/24 1757 DC IV 04/24 1758 Norepinephrine 4 MG Q4H 04/24 1515 DC 04/24 Sodium Chloride 250 ML IV 04/24 2200 1800 Scopolamine HBr 1 PAT Q72H 04/25 0015 DCD 04/25 TOP 0058 Vancomycin HCl 1,000 MG Q12 04/24 1438 DC 04/24 Sodium Chloride 250 ML IV 1946 Impression/Plan Impression/Problem List Impression: 51-year-old gentleman with a recent history and non-small cell lung cancer diagnosed 3 weeks ago getting daily radiation therapy, AICD placement in Jul 2016, chemotherapy every Saturday presented to the emergency room status post cardiac arrest the cancer center. Problem list 1. Status post cardiac pulmonary arrest requiring intubation, mechanical ventilation and pressor support 2. Shock requiring pressors, likely secondary to cardiac arrest 3. Leukocytosis with bandemia, possibly secondary to new onset infection versus known lung cancer versus reactive to chemotherapy and radiation 4. Lactic acidosis currently on mechanical ventilation 5. Hyperkalemia 6. Anion gap lactic acidosis, likely metabolic 7. Bundle branch block, new 8. Elevated QTc interval, new 9. Newly diagnosed non-small cell lung cancer 3 weeks ago requiring daily radiation therapy and chemotherapy every Saturday (medication unknown) 10. Known COPD and emphysema 11. Known smoking history 12. History of hypertension 13. Known anxiety and depression Plan -Patient was changed to comfort measure yesterday evening -Continue Ativan drip -Continue morphine as needed -Scopolamine patch -Obtain hospice evaluation -AICD was deactivated -Cardiology, oncology, neurology consultation were obtained yesterday Problem List: 1. Lung cancer 2. Cardiac arrest 3. Leukocytosis 4. Lung mass Pain Ratin Tomorrow's Labs & Rationales: None Plan DVT/Prophylaxis: EZIO Schumacher MD 04/25/17 0929: Attending MD Review Statement Attending Sign Off Attending Cosign Statement: I have: examined this patient, reviewed avalbl EMR data, personally reviewd images, discussd w/resident/PA/CULINARY INTERN, discussed mgmt plan w/roxana, discussed mgmt plan w/CM, discussed mgmt plan w/pt, agreed w/resident/PA/CULINARY INTERN, amended to note. Other Findings: IEzio M.D. have examined this patient, reviewed available EMR data, personally reviewed images, discussed with resident/PA/CULINARY INTERN, discussed management plan with housestaff and nursing staff, discussed managment plan all of healthcare providers, discussed management plan with patient and/or family, agreed with resident/PA/CULINARY INTERN. The past history and parts of the chart have been autopopulated.
--- NOTE | 2017-04-25 08:48 | Cons- Neurology ---
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 Albuterol Sulfate (Proair Hfa) 90 MCG HFA.AER.AD 2 PUF INH Q4-6 PRN PRN SHORTNESS OF BREATH (Reported) Bupropion HCl (Bupropion HCl Sr) 200 MG TABLET.ER 1 TAB PO BID MENTAL HEALTH (Reported) Carvedilol 6.25 MG TABLET 1 TAB PO BID HEART (Reported) Fluticasone/Salmeterol (Advair 500-50 Diskus) 500 MCG-50 MCG/DOSE BLST.W.DEV 1 PUF INH BID BREATHING PROBLEMS (Reported) Sacubitril/Valsartan (Entresto 97 MG-103 MG Tablet) 97 MG-103 MG TABLET 1 TAB PO BID HEART (Reported) Sertraline HCl 50 MG TABLET 1 TAB PO DAILY MENTAL HEALTH (Reported) Current Medications: Current Medications Sig/Yuli Start time Last Medication Dose Route Stop Time Status Admin Acetaminophen 1,000 MG Q6P PRN 04/25 0015 AC 04/25 N/A 1 UNIT IV 0036 Amiodarone HCl/ 150 MG ONCE ONE 04/24 1645 DC 04/24 Dextrose IV 04/24 1654 1930 N/A 1 UNIT Amiodarone HCl/ 360 MG Q12H 04/24 1645 DC 04/24 Dextrose IV 1945 N/A 1 UNIT Ceftazidime 2,000 MG IQ8 04/24 1600 DC 04/24 Dextrose/Water 50 ML IV 1946 Dextrose/Sodium 1,000 ML ONCE ONE 04/24 1430 DC 04/24 Chloride IV 04/25 1029 1530 Epinephrine 1 MG ONCE ONE 04/24 1230 DC 04/24 IV 04/24 1231 1122 Heparin Sodium 5,000 UNIT Q8 04/24 2200 CAN (Porcine) SC Levetiracetam 500 MG Q12 04/24 2200 DC N/A 1 UNIT IV Levetiracetam 500 MG 0600,1800 04/24 1800 DC 04/24 N/A 1 UNIT IV 2016 Levetiracetam 1,000 MG ONCE ONE 04/24 1630 DC 04/24 N/A 1 UNIT IV 04/24 1644 1946 Lorazepam 50 MG Q7H 04/25 0200 04/25 Dextrose/Water 500 ML IV 0302 Lorazepam 2 MG ONE ONE 04/24 1545 DC 04/24 IV 04/24 1546 1545 Lorazepam 50 MG Q24H 04/24 1545 DC 04/24 Dextrose/Water 500 ML IV 1946 Lorazepam 0 .STK-MED ONE 04/24 1412 DC .ROUTE Lorazepam 1 MG STAT STA 04/24 1230 DC 04/24 IV 04/24 1231 1218 Lorazepam 1 MG STAT STA 04/24 1230 DC 04/24 IV 04/24 1231 1224 Lorazepam 0 .STK-MED ONE 04/24 1222 DC .ROUTE Morphine Sulfate 100 MG Q24H 04/24 2230 AC 04/24 Dextrose/Water 100 ML IV 2240 Morphine Sulfate 2 MG ONCE ONE 04/24 2200 DC 04/24 IV 04/24 2201 2200 Morphine Sulfate 2 MG Q1 NEEDED PRN 04/24 2145 AC 04/24 IV 2230 Morphine Sulfate 2 MG Q4P PRN 04/24 2015 DC 04/24 IV 2016 Morphine Sulfate 2 MG ONCE ONE 04/24 1730 DC 04/24 IV 04/24 1731 1731 Morphine Sulfate 2 MG ONCE ONE 04/24 1230 DC 04/24 IV 04/24 1231 1207 Morphine Sulfate 0 .STK-MED ONE 04/24 1210 DC .ROUTE Norepinephrine 8 MG Q8H 04/24 2200 CAN Sodium Chloride 250 ML IV Norepinephrine 8 MG .STK-MED ONE 04/24 1757 DC IV 04/24 1758 Norepinephrine 4 MG Q4H 04/24 1515 DC 04/24 Sodium Chloride 250 ML IV 04/24 2200 1800 Norepinephrine 8 MG ONCE ONE 04/24 1230 DC 04/24 Sodium Chloride 250 ML IV 04/24 1231 1234 Scopolamine HBr 1 PAT Q72H 04/25 0015 AC 04/25 TOP 0058 Sodium Chloride 1,000 ML BOLUS ONE 04/24 1230 DC 04/24 IV 04/24 1329 1118 Sodium Chloride 1,000 ML BOLUS ONE 04/24 1230 DC 04/24 IV 04/24 1329 1200 Vancomycin HCl 1,000 MG Q12 04/24 1438 DC 04/24 Sodium Chloride 250 ML IV 1946 Past History Travel History Traveled to [place] past 21 day No Medical History Neurological: NONE EENT: NONE Cardiovascular: cardiomyopathy, CHF, defibrillator Respiratory: bronchitis, COPD, emphysema Gastrointestinal: NONE Hepatic: NONE Renal: NONE Musculoskeletal: NONE Psychiatric: NONE Endocrine: NONE Blood Disorders: NONE Cancer(s): 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 Psychosocial History Where Do You Live? Home Smoking Status: Current Everyday Smoker ETOH Use: 6 Illicit Drug Use: UTD Living Will? no Functional Ability ADLs Independent: dressing, eating, toileting, bathing. Ambulation: independent IADLs Independent: shopping, housework, finances, food prep, telephone, transportation , medication admin. ECHO Results (as available) Date of last Echo 03/20/17 EF% 55 Exam & Diagnostic Data Vital Signs and I&O Vital Signs Date Time Temp Pulse Resp B/P B/P Pulse O2 O2 Flow FiO2 Mean Ox Delivery Rate 04/25 0800 Non 100% ReBreather 04/25 0800 97.0 70 18 88/50 98 Non 100% ReBreather 04/25 0400 Non 100% ReBreather 04/25 0140 98.5 04/25 0036 99.9 06 0000 78 Non 100% ReBreather 04/25 0000 99.9 116 12 86/58 78 Non 100% ReBreather 04/245 89 Ventilator 100% 04/24 2020 100 04/24 2000 99.6 114 22 126/78 04/24 2000 90 Ventilator 100% 04/24 1930 117/81 04/24 1800 117/81 04/24 1732 122/88 04/24 1625 100 04/24 1600 89 Ventilator 100% 04/24 1508 100 04/24 1500 97.5 100 20 122/88 04/24 1500 97.5 100 20 122/88 89 Ventilator 100% 04/24 1435 92 108/70 04/24 1357 92 24 113/76 100 Ventilator 100% 04/24 1338 96.4 90 24 114/72 100 Ventilator 100% 04/24 1319 87 26 98/62 100 Ventilator 100% 04/24 1234 90 100/60 04/24 1232 92 24 94/62 100 Ventilator 100% 04/24 1145 100 04/24 1144 90 14 78/51 100 Ventilator Intake & Output 04/25 1600 04/25 0800 04/25 0000 Intake Total 603 Output Total 220 Balance 383 Intake, IV 603 Number 0 Bowel Movements Output, Urine 220 Last 48 Hours of Lab Results: Laboratory Tests 04/25 04/25 04/24 0500 0000 1740 Chemistry Lactic Acid Cancelled Troponin I Cancelled Free T4 Cancelled Hematology CBC w Diff Cancelled WBC Cancelled RBC Cancelled Hgb Cancelled Hct Cancelled MCV Cancelled MCH Cancelled RDW Cancelled Plt Count Cancelled MPV Cancelled PUBS MCHC Cancelled 04/24 04/24 1740 1640 Blood Gas pH (7.35 - 7.45 PH) 7.27 *L pCO2 (35 - 45 TORR) 43 pO2 (80 - 100 TORR) 56 L HCO3 (21 - 28 MEQ/L) 19 L ABG O2 Sat (Measured) (>96.0 %) 83.0 L P-50 (Temp Corrected) N Carboxyhemoglobin (1.5 - 5.0 %) 0.3 L O2 Concentration % 100% Temperature (97.0 - 100.0 FARH) 98.8 Respiration Rate (BPM) 20 O2 Delivery Method VENT Vent Mode AC Expiratory Pressure (CMH2O/P) 5 Tidal Volume (CC) 500 Chemistry Sodium (137 - 145 mmol/L) 136 L Potassium (3.5 - 5.1 mmol/L) 4.7 Chloride (98 - 107 mmol/L) 102 Carbon Dioxide (22 - 30 mmol/L) 22 Anion Gap (5 - 16) 12 BUN (9 - 20 mg/dL) 22 H Creatinine (0.7 - 1.2 mg/dL) 0.9 Estimated GFR (>60 ml/min) > 60 Glucose (65 - 99 mg/dL) 183 H Lactic Acid (0.7 - 2.1 mmol/L) 1.6 Calcium (8.4 - 10.2 mg/dL) 7.4 L Phosphorus (2.5 - 4.5 mg/dL) 5.5 H Magnesium (1.6 - 2.3 mg/dL) 2.0 Total Bilirubin (0.2 - 1.3 mg/dL) 0.4 AST (17 - 59 U/L) 87 H ALT (21 - 72 U/L) 69 Troponin I (<0.11 ng/ml) 0.03 Albumin (3.5 - 5.0 g/dL) 2.8 L Hematology CBC w Diff MAN DIFF ORDERED WBC (4.8 - 10.8 /CUMM) 81.8 *H RBC (4.70 - 6.10 /CUMM) 3.49 L Hgb (14.0 - 18.0 G/DL) 9.9 L Hct (42 - 52 %) 30.2 L MCV (80.0 - 94.0 FL) 86.4 MCH (27.0 - 31.0 PG) 28.2 RDW (11.5 - 14.5 %) 16.1 H Plt Count (130 - 400 /CUMM) 496 H MPV (7.4 - 10.4 FL) 7.4 Gran % (42.2 - 75.2 %) 98.4 H Lymphocytes % (20.5 - 51.1 %) 0.6 L Monocytes % (1.7 - 9.3 %) 0.9 L Eosinophils % (0 - 5 %) 0.1 Basophils % (0.0 - 2.0 %) 0 L Absolute Granulocytes (1.4 - 6.5 /CUMM) 80.5 H Segmented Neutrophils (42.2 - 75.2 %) 76 H Band Neutrophils (0.0 - 5.0 %) 20 H Absolute Lymphocytes (1.2 - 3.4 /CUMM) 0.5 L Lymphocytes (20.5 - 51.1 %) 1 L Monocytes (1.7 - 9.3 %) 1 L Absolute Monocytes (0.10 - 0.60 /CUMM) 0.7 H Absolute Eosinophils (0.0 - 0.7 /CUMM) 0.1 Absolute Basophils (0.0 - 0.2 /CUMM) 0 Metamyelocytes (0.0 - 1.0 %) 2 H Platelet Estimate (ADEQUATE) INCREASED Polychromasia 2+ Hypochromic-Microcytic 2+ Anisocytosis 1+ PUBS MCHC (33.0 - 37.0 G/DL) 32.6 L Miscellaneous Phlebotomy Draw Site RIGHT BRACHIAL 04/24 04/24 04/24 1605 1510 1230 Blood Gas pH (7.35 - 7.45 PH) 7.07 *L pCO2 (35 - 45 TORR) 45 pO2 (80 - 100 TORR) 311 H HCO3 (21 - 28 MEQ/L) 13 L ABG O2 Sat (Measured) (>96.0 %) 99.0 P-50 (Temp Corrected) N Carboxyhemoglobin (1.5 - 5.0 %) 0.7 L O2 Concentration % 100% Respiration Rate (BPM) 20 O2 Delivery Method VENT Vent Mode AC Expiratory Pressure (CMH2O/P) 5 Tidal Volume (CC) 500 Pressure Support (CMH2O/P) 0 Chemistry Lactic Acid (0.7 - 2.1 mmol/L) 1.6 Prolactin Cancelled Coagulation PT (9.4 - 12.5 SEC) 16.2 H INR (0.90 - 1.17) 1.55 H Miscellaneous Phlebotomy Draw Site LEFT RADIAL 04/24 04/24 1212 1140 Chemistry Sodium (137 - 145 mmol/L) 139 Potassium (3.5 - 5.1 mmol/L) 5.3 H Chloride (98 - 107 mmol/L) 103 Carbon Dioxide (22 - 30 mmol/L) 14 L Anion Gap (5 - 16) 22 H BUN (9 - 20 mg/dL) 15 Creatinine (0.7 - 1.2 mg/dL) 0.9 Estimated GFR (>60 ml/min) > 60 BUN/Creatinine Ratio (7 - 25 %) 16.7 Glucose (65 - 99 mg/dL) 160 H Calcium (8.4 - 10.2 mg/dL) 8.6 Phosphorus (2.5 - 4.5 mg/dL) 7.4 H Magnesium (1.6 - 2.3 mg/dL) 2.6 H Total Bilirubin (0.2 - 1.3 mg/dL) 0.4 AST (17 - 59 U/L) 17 ALT (21 - 72 U/L) 29 Alkaline Phosphatase (< 127 U/L) 278 H Creatine Kinase (55 - 170 U/L) 57 Troponin I (<0.11 ng/ml) < 0.01 Total Protein (6.3 - 8.2 g/dL) 5.3 L Albumin (3.5 - 5.0 g/dL) 2.7 L Globulin (1.9 - 4.2 gm/dL) 2.6 Albumin/Globulin Ratio (1.1 - 2.2 %) 1.0 L Lipase (23 - 300 U/L) 58 Vitamin B12 (239 - 931 pg/mL) > 1000 H 25-OH Vitamin D Total (30 - 100 ng/ml) 10.7 L Folate (2.76 - 20.0 ng/mL) 8.0 TSH (0.270 - 4.200 uIU/mL) 17.200 H Free T4 (0.64 - 1.79 ng/dL) 1.30 Prolactin (3.7 - 17.9 ng/mL) 35.3 H Cortisol AM Sample (4.46 - 22.7 ug/dL) > 123.0 H Hematology CBC w Diff MAN DIFF ORDERED WBC (4.8 - 10.8 /CUMM) 43.6 *H RBC (4.70 - 6.10 /CUMM) 3.19 L Hgb (14.0 - 18.0 G/DL) 8.8 L Hct (42 - 52 %) 28.2 L MCV (80.0 - 94.0 FL) 88.3 MCH (27.0 - 31.0 PG) 27.7 RDW (11.5 - 14.5 %) 15.5 H Plt Count (130 - 400 /CUMM) 317 MPV (7.4 - 10.4 FL) 7.8 Gran % (42.2 - 75.2 %) 90.1 H Lymphocytes % (20.5 - 51.1 %) 9.1 L Monocytes % (1.7 - 9.3 %) 0.1 L Eosinophils % (0 - 5 %) 0.6 Basophils % (0.0 - 2.0 %) 0.1 Absolute Granulocytes (1.4 - 6.5 /CUMM) 39.3 H Segmented Neutrophils (42.2 - 75.2 %) 66 Band Neutrophils (0.0 - 5.0 %) 16 H Absolute Lymphocytes (1.2 - 3.4 /CUMM) 4.0 H Lymphocytes (20.5 - 51.1 %) 14 L Monocytes (1.7 - 9.3 %) 3 Absolute Monocytes (0.10 - 0.60 /CUMM) 0.1 L Eosinophils (0 - 5.0 %) 1 Absolute Eosinophils (0.0 - 0.7 /CUMM) 0.3 Absolute Basophils (0.0 - 0.2 /CUMM) 0.1 Platelet Estimate (ADEQUATE) ADEQUATE Hypochromic-Microcytic 1+ Anisocytosis 1+ PUBS MCHC (33.0 - 37.0 G/DL) 31.3 L Toxicology Urine Opiates Screen (>2000 NG/ML) < 100.00 Methadone Screen (>300 NG/ML) < 40 Barbiturate Screen (>200 NG/ML) < 60 Ur Phencyclidine Scrn (>25 NG/ML) < 6.00 Amphetamines Screen (>1000 NG/ML) 398 U Benzodiazepines Scrn (>200 NG/ML) < 85 Urine Cocaine Screen (>300 NG/ML) < 50 Urine Cannabis Screen (>50 NG/ML) < 5.00 Urines Urinalysis MOD H Urine Color (YEL,AMB,STR) YEL Urine Clarity (CLEAR) CLDY H Urine pH (5.0 - 8.0) 6.0 Ur Specific [place] (1.001 - 1.035) >= 1.030 Urine Protein (NEG,<30 MG/DL) 100 H Urine Ketones (NEG) NEG Urine Nitrite (NEG) NEG Urine Bilirubin (NEG) NEG Urine Urobilinogen (0.1 - 1.0 EU/dl) 0.2 Ur Leukocyte Esterase (NEG) NEG Ur Microscopic SEDIMENT EXAMINED Urine RBC (0 - 5 /HPF) 15-25 H Urine WBC (0 - 2 /HPF) 3-5 H Ur Epithelial Cells (NONE,FEW) FEW Urine Hemoglobin (NEG) MOD H Urine Glucose (N MG/DL) NEG Assessment/Plan Consult Acknowledgment - Thank you for your consult request.
--- NOTE | 2017-04-25 09:06 | NUR ---
FAMILY AT BEDSIDE, SISTER ANTHONY AND BROTHER KERI. FATHER LEFT EARLY THIS MORNING. PATIENT APPEARS COMFORTABLE. UNRESPONSIVE. RR 6. MORPHINE SULFATE DRIP MAINTAINED AT 6 ML/HR (6 MG/HR) INTO A #18 PERIPHERAL IV SITE LAC. ATIVAN DRIP MAINTAINED AT 70 ML/HR (7 MG/HR) INTO RIGHT GROIN TLC. REPOSITIONED TO RIGHT SIDE. LOTION APPLIED. ORAL HYGIENE GIVEN. EMOTIONAL SUPPORT GIVEN TO FAMILY. COMFORT CART AT BEDSIDE.
--- NOTE | 2017-04-25 09:30 | NUR ---
[employer] SCIENTIFIC REP SOREN IN TO TURN OFF DEFIBRILLATOR. ORDER RECEIVED TO TURN OFF DEFIBRILLATOR FROM DR PADILLA #[id number], OKAY PER DR BOWEN. FAMILY AWARE OF THIS ORDER. MAGNET REMOVED FROM LEFT THORACIC AREA. DEFIBRILLATOR TURNED OFF BY SOREN. FAMILY AT BEDSIDE. CALL MIRANDA IN REACH.
--- NOTE | 2017-04-25 11:19 | NUR ---
TURNED AND REPOSITIONED TO LEFT SIDE WITH PILLOWS. LOTION APPLIED. INCREASED AGONAL BREATHING, RR 10. MORPHINE SULFATE 3 MG IV GIVEN. FAMILY AT BEDSIDE, REVIEWED POC. WILL CONTINUE TO MONITOR.
--- NOTE | 2017-04-25 11:28 | NUR ---
PATIENT NOTED NO RESPIRATORY RATE. FAMILY AT BEDSIDE. NOTIFIED ART THERAPY SPECIALIST DR PADILLA #[id number]. ART THERAPY SPECIALIST IN TO PRONOUNCE PATIENT. EMOTIONAL SUPPORT GIVEN. NURSE SOCIAL MEDIA MARKETING MANAGER, ANATOMIC PATHOLOGY ASSISTANT, NOTIFIED.
--- NOTE | 2017-04-25 11:33 | NUR ---
NOTIFIED ADMITTING OFFICE OF PATIENT'S PASSING. FAMILY DISCUSSING HOME OPTIONS AT THIS TIME.
--- NOTE | 2017-04-25 11:49 | Discharge Summary ---
See Addendum Visit Information Visit Dates Admission Date: 04/24/17 Discharge Date: 04/25/17 Hospital Course Course Attending Physician: MANUEL SALCEDO MD Primary Care Physician: GONZALEZ GARCIA Hospital Course: 51-year-old gentleman with a recent history and non-small cell lung cancer diagnosed 3 weeks ago getting daily radiation therapy, AICD placement in Jul 2016, chemotherapy every Saturday presented to the emergency room status post cardiac arrest the cancer center. Patient was admitted to ICU for management of following clinical problems: 1. Status post cardiac pulmonary arrest requiring intubation, mechanical ventilation and pressor support 2. Shock requiring pressors, likely secondary to cardiac arrest 3. Leukocytosis with bandemia, possibly secondary to new onset infection versus known lung cancer versus reactive to chemotherapy and radiation 4. Lactic acidosis currently on mechanical ventilation 5. Hyperkalemia 6. Anion gap lactic acidosis, likely metabolic 7. Bundle branch block, new 8. Elevated QTc interval, new 9. Newly diagnosed non-small cell lung cancer 3 weeks ago requiring daily radiation therapy and chemotherapy every Saturday (medication unknown) 10. Known COPD and emphysema 11. Known smoking history 12. History of hypertension 13. Known anxiety and depression Appropriate clinical management was proceeded, oncology, endocrinology, neurology and cardiology consultation were obtained. Patient's family decided to proceed with comfort care measures later on day of admission and hospice evaluation, AICD was deactavited. Patient passed peacefully on 04/25/17 at 11:28 AM Allergies: Coded Allergies: NO KNOWN ALLERGIES (06/06/13) Disposition Summary Disposition Principal Diagnosis: Status post cardiac pulmonary arrest Additional Diagnosis: Septic shock Discharge Disposition: Discharge Instructions General Discharge Information Code Status: Comfort Care Only Patient's Diet: --- Patient's Activity: --- Follow-Up Instructions/Appts: --- Copies To: GONZALEZ GARCIA; MANUEL SALCEDO MD
--- NOTE | 2017-04-25 11:50 | Event Note ---
Event Note Event Note: I spoke with the medical examiners office, they stated its not a case. Case # [id number].
--- NOTE | 2017-04-25 11:50 | NUR ---
SASHA CALLED FROM [facility], DENIED PATIENT. [employer]SE[employer] OFFICE WAS CALLED BY EXECUTIVE TALENT ACQUISITION CONSULTANT DR BARBER #[id number] AND REPORTED NOT A CASE.
--- NOTE | 2017-04-25 12:00 | NUR ---
FAMILY AT BEDSIDE, GIRLFRIEND AT BEDSIDE. EMOTIONAL SUPPORT GIVEN. RUBY WITH FAMILY.
--- NOTE | 2017-04-25 13:07 | ECHOCARDIOGRAM REPORT ---
LAURI JOHNSON Age: 51 : 1965 Gender: M Exam Date: 04/24/2017 17:51 Exam Location: [facility] Ht (in): 68 Wt (lb): 120 BSA: 1.60 BP: 108 / 70 Ordering Physician: CHAYITO BARBER M Referring Physician: Hai Gordon MD Technologist: Alisa Ferguson [facility] [[email or web address]] Room Number: 111 Indications: HYPOTENSION Rhythm: Sinus Technical Quality: Fair FINDINGS Left Ventricle Normal size left ventricle. Normal left ventricular wall thickness. Abnormal septal motion consistent with an intraventricular conduction defect. No other obvious regional wall motion abnormalities. Normal left ventricular ejection fraction visually estimated at >60%. Right Ventricle Normal right ventricular size and function. Catheter/pacemaker wire in the right ventricular cavity. Right Atrium Normal right atrial size. Catheter/pacemaker wire in the right atrial cavity. Left Atrium Normal left atrial size. Interatrial septal aneurysm. Mitral Valve Mild mitral annular calcification. Mitral valve mildly thickened. No mitral regurgitation. Aortic Valve Mild aortic sclerosis. No aortic valve stenosis or regurgitation. Tricuspid Valve Structurally normal tricuspid valve. Mild tricuspid regurgitation. Unable to estimate the right ventricular systolic pressure. Pulmonic Valve Pulmonic valve not well visualized, grossly normal. No pulmonic regurgitation. Pericardium No pericardial effusion. Great Vessels Normal size aortic root. Normal size inferior vena cava. CONCLUSIONS Normal size left ventricle. Normal left ventricular wall thickness. Abnormal septal motion consistent with an intraventricular conduction defect. No other obvious regional wall motion abnormalities. Normal left ventricular ejection fraction visually estimated at > 60%. Normal right ventricular size and function. Normal atrial size. Catheter/pacemaker wire in the right heart. Interatrial septal aneurysm. Mild tricuspid regurgitation. Unable to estimate the right ventricular systolic pressure. Hai Gordon M.D. (Electronically Signed) Final Date: 25 April 2017 13:06 MEASUREMENTS (Male / Female) Normal Values 2D ECHO LV Diastolic Diameter PLAX 4.1 cm 4.2 - 5.9 / 3.9 - 5.3 cm LV Systolic Diameter PLAX 2.4 cm 2.1 - 4.0 cm LV Fractional Shortening PLAX 41.5 % 25 - 46 % LV Ejection Fraction 2D Teich 72.8 % IVS Diastolic Thickness 0.7 cm LVPW Diastolic Thickness 0.9 cm LV Relative Wall Thickness 0.4 RV Internal Dim ED PLAX 2.3 cm 1.9 - 3.8 cm LVOT Diameter 2.1 cm Aortic Root Diameter 3.4 cm LA Systolic Diameter LX 3.4 cm 3.0 - 4.0 / 2.7 - 3.8 cm LA Volume 30.0 cm 18 - 58 / 22 - 52 cm DOPPLER AV Peak Velocity 161.0 cm/s AV Peak Gradient 10.4 mmHg AV Mean Velocity 106.0 cm/s AV Mean Gradient 5.0 mmHg AV Velocity Time Integral 24.5 cm LVOT Peak Velocity 99.3 cm/s LVOT Peak Gradient 3.9 mmHg LVOT Mean Velocity 70.2 cm/s LVOT Mean Gradient 2.0 mmHg LVOT Velocity Time Integral 17.8 cm LVOT Stroke Volume 61.7 cm AV Area Cont Eq vti 2.5 cm AV Area Cont Eq pk 2.1 cm MV Peak Velocity 101.0 cm/s MV Peak Gradient 4.1 mmHg MV Mean Velocity 57.2 cm/s MV Mean Gradient 2.0 mmHg PV Peak Velocity 102.0 cm/s PV Peak Gradient 4.2 mmHg PV Mean Velocity 69.1 cm/s PV Mean Gradient 2.0 mmHg PV Velocity Time Integral 14.2 cm LV E' Lateral Velocity 20.7 cm/s LV E' Septal Velocity 22.4 cm/s
--- NOTE | 2017-04-25 13:35 | NUR ---
POST MORTEM CARE GIVEN. NS WASH TO EYES, ICE PACKS TO EYES. DISTRIBUTION CALLED FOR TRANSPORT TO [facility] [place].
--- NOTE | 2017-04-25 14:20 | NUR ---
[facility] WILL ACCEPT THIS PATIENT FOR POSSIBLE DONATION. [facility] WILL NOTIFY FAMILY AND ASK FOR CONSENT.
== END 2017-04-25 11:28 | disposition expired ==
LOC: ERH 11:17 → CRI 12:47 → ERHI 12:47 → ENTRNSPT 13:47 → CRI 14:10 → EDTRNSPT 14:23 → EDTRNSPTSTS 14:23 → EDTRNSPTTYP 14:23 → CMPTRNSPT 14:25 → CRI 04-25 11:28
PROVIDERS: Emergency Medicine; Internal Medicine; ADMIT Internal Medicine Critical Care Medicine
DX: I46.9 Cardiac arrest, cause unspecified (principal); Z51.5 Encounter for palliative care; E87.2 Acidosis; C34.90 Malignant neoplasm of unspecified part of unspecified bronchus or lung; J44.9 Chronic obstructive pulmonary disease, unspecified; I42.9 Cardiomyopathy, unspecified; R57.9 Shock, unspecified; C78.39 Secondary malignant neoplasm of other respiratory organs; I95.9 Hypotension, unspecified; I11.0 Hypertensive heart disease with heart failure; I50.9 Heart failure, unspecified; E87.5 Hyperkalemia; Z95.810 Presence of automatic (implantable) cardiac defibrillator; I45.4 Nonspecific intraventricular block; F17.200 Nicotine dependence, unspecified, uncomplicated; D72.829 Elevated white blood cell count, unspecified; F41.9 Anxiety disorder, unspecified; F32.9 Major depressive disorder, single episode, unspecified
CPT/HCPCS: 1328; 1342; 1344; 1387; 1425; 1530; 1748; 74176; 80307; 81001; 82436; 87040; 87070; 87086; 87449; 87450; 93005; 93010; 93306; 93970; 94799; 95816; 96361; 96374; 96375; 96376; 99291; G0378; J0131; J0282; J0713; J1644; J1953; J2060; J2270; J3370; J7040; J7042